=== PATIENT | female | born 1930 | race Hispanic/Latino ===

== ENCOUNTER 2017-10-15 13:52 | Inpatient (IN) | payer MEDICARE ==
--- NOTE | 2017-10-15 14:34 | ED PDOC ---
HPI: SOB/CHF/COPD Time Seen by Provider: 10/15/17 14:14 Chief Complaint (Nursing): Shortness Of Breath Chief Complaint (Provider): SOB History Per: Patient History/Exam Limitations: no limitations Additional Complaint(s): Pt reports SOB X 2 days, constant. Denies fever, CP, cough, palpitations, PND, orthopnea. Denies similar sxs in past. Also reports unintentional weight loss in past few years. PMD: Dr. Christianson Licensing Services Clerk: Dr. Zamora Past Medical History Reviewed: Nursing Documentation, Vital Signs Vital Signs: Last Vital Signs Temp 99.1 F 10/15/17 14:04 Pulse 113 H 10/15/17 14:04 Resp 26 H 10/15/17 14:04 BP 138/66 10/15/17 14:04 Pulse Ox 55 L 10/15/17 16:44 - Medical History PMH: Atrial Fibrillation Other PMH: Cerebral hemorrhage - Family History Family History: States: Unknown Family Hx - Living Arrangements Living Arrangements: Alone - Social History Current smoker - smoking cessation education provided: No Ex-Smoker (has not smoked in the last 12 months): Yes (20 years ago) Alcohol: None - Home Medications Home Medications: Ambulatory Orders Medication Instructions Recorded Amlodipine/Atorvastatin 1 tab PO DAILY 10/15/17 Cholecalciferol (Vitamin D3) 2,000 unit PO DAILY 10/15/17 [Vitamin D3] Digoxin 250 mcg PO DAILY 10/15/17 Furosemide [Lasix] 40 mg PO DAILY 10/15/17 Multivitamin/Iron/Folic Acid 1 tab PO DAILY 10/15/17 [Centrum Complete Multivit Tab] SITagliptin [Januvia] 25 mg PO DAILY 10/15/17 Warfarin [Coumadin] 3 mg PO MOTUTHFRSA 10/15/17 Warfarin [Coumadin] 6 mg PO SUWE 10/15/17 - Allergies Allergies/Adverse Reactions: Allergies Allergy/AdvReac Type Severity Reaction Status Date / Time No Known Allergies Allergy Verified 10/15/17 14:04 Review of Systems Constitutional: Positive for: Weight loss. Negative for: Fever, Chills Cardiovascular: Negative for: Chest Pain, Palpitations Respiratory: Positive for: Shortness of Breath. Negative for: Cough, Hemoptysis , Sputum, Wheezing Gastrointestinal: Negative for: Nausea, Vomiting, Abdominal Pain, Diarrhea Genitourinary Female: Negative for: Dysuria, Hematuria Skin: Negative for: Rash, Lesions Neurological: Negative for: Headache Physical Exam - Reviewed Nursing Documentation Reviewed: Yes Vital Signs Reviewed: Yes - Physical Exam Appears: Positive for: In Acute Distress (Mild respiratory). Negative for: Well (Cachectic) Head Exam: Positive for: ATRAUMATIC, NORMAL INSPECTION Skin: Positive for: Normal Color, Warm, Dry Eye Exam: Positive for: Normal appearance, EOMI, PERRL Cardiovascular/Chest: Positive for: Regular Rate, Rhythm Respiratory: Positive for: Decreased Breath Sounds, Crackles (Bibasilar), Rales , Respiratory Distress (Mild). Negative for: Accessory Muscle Use, Rhonchi, Stridor, Wheezing Gastrointestinal/Abdominal: Positive for: Normal Exam, Bowel Sounds, Soft. Negative for: Tenderness Extremity: Positive for: Normal ROM. Negative for: Tenderness, Deformity, Swelling Neurologic/Psych: Positive for: Alert, Oriented - Laboratory Results Result Diagrams: 10/15/17 14:50 10/15/17 14:50 - ECG O2 Sat by Pulse Oximetry: 55 Pulse Ox Interpretation: Abnormal - Critical Care Total Time (In Min): 60 Medical Decision Making Medical Decision Makin yo female with dyspnea. - labs - EKG - CXR CXR FINDINGS: LUNGS: A [id number] right pleural effusion is identified with a minimal left pleural effusion. Underlying airspace disease not excluded both bases with remaining lung mason clear. Cardiac size stable. Limited pulmonary vascular congestion noted. No pneumothorax bilaterally. PLEURA: As above. CARDIOVASCULAR: As above. OSSEOUS STRUCTURES: No significant abnormalities. VISUALIZED UPPER ABDOMEN: Normal. OTHER FINDINGS: None. IMPRESSION: Bilateral pleural effusions are identified greater the right than left sides with underlying airspace disease not excluded both bases. Stable cardiomegaly. Limited pulmonary vascular congestion noted. 16:[address] Zamora, recommends Lasix 20 mg IV, no anticoagulation ( including ASA) secondary to INR 3.5 and h/o cerebral hemorrhage. 16:30 Dr. Zamora reviewed EKG, SVT with 2:1 heart block, c/w dig toxicity, will order dig level. CT CHEST: Pending 16:42 Patient will be admitted to the service of Dr. Heart. Admitting diagnoses are CHF, bilateral pleural effusions, digoxin toxicity and elevated troponin Disposition - Clinical Impression Clinical Impression: Digoxin toxicity, CHF (congestive heart failure), Pleural effusion, Elevated troponin - Patient ED Disposition Is Patient to be Admitted: Yes - Disposition Disposition Time: 16:42 Condition: GUARDED Forms: [facility] ([place]) - Pt Status Changed To: Hospital Disposition Of: Inpatient - Admit Certification Admit to Inpatient:: After my assessment, the patient will require hospitalization for at least two midnights. This is because of the severity of symptoms shown, intensity of services needed, and/or the medical risk in this patient being treated as an outpatient. - POA Present On Arrival: None
--- NOTE | 2017-10-15 14:36 | RAD ---
Date of service: 10/15/2017 PROCEDURE: CHEST RADIOGRAPH, 1 VIEW HISTORY: SOB COMPARISON: Portable chest 04/05/2008 FINDINGS: LUNGS: A [id number] right pleural effusion is identified with a minimal left pleural effusion. Underlying airspace disease not excluded both bases with remaining lung mason clear. Cardiac size stable. Limited pulmonary vascular congestion noted. No pneumothorax bilaterally. PLEURA: As above. CARDIOVASCULAR: As above. OSSEOUS STRUCTURES: No significant abnormalities. VISUALIZED UPPER ABDOMEN: Normal. OTHER FINDINGS: None. IMPRESSION: Bilateral pleural effusions are identified greater the right than left sides with underlying airspace disease not excluded both bases. Stable cardiomegaly. Limited pulmonary vascular congestion noted
[2017-10-15 14:42] LABS: ABG ALLEN TEST YES; ARTERIAL BLOOD GAS HCO3 34.5 mmol/L (21-28); ARTERIAL BLOOD GAS HEMOGLOBIN 10.3 g/dL (11.7-17.4); ARTERIAL BLOOD GAS O2 CAPACITY 14.7 mL/dL (16-24); ARTERIAL BLOOD GAS O2 CONTENT 14.7 ML/dL (15-23); ARTERIAL BLOOD GAS O2 SAT 100.1 % (95-98); ARTERIAL BLOOD GAS PCO2 67 mm/Hg (35-45); ARTERIAL BLOOD GAS PH 7.38 (7.35-7.45); ARTERIAL BLOOD GAS PO2 301 mm/Hg (80-100); ARTERIAL BLOOD GAS TCO2 41.7 mmol/L (22-28)
[2017-10-15 15:27] LABS: BASO % 0.3 % (0.0-2.0); HEMOGLOBIN 10.1 g/dL (12.0-16.0); LYMPH # 0.5 K/uL (1.0-4.3); LYMPH % 6.3 % (20.0-40.0); MEAN CELL VOLUME 82.6 fl (81.0-99.0); MEAN CORPUSCULAR HGB CONC 31.5 g/dL (33.0-37.0); MEAN PLATELET VOLUME 8.3 fl (7.2-11.7); MONO % 13.8 % (0.0-10.0); NEUT # 5.7 K/uL (1.8-7.0); NEUT % 79.6 % (50.0-75.0); PLATELET COUNT 211 K/uL (130-400); RBC 3.89 Mil/uL (3.80-5.20); RED CELL DISTRIBUTION WIDTH 18.2 % (11.5-14.5); WHITE BLOOD COUNT 7.1 K/uL (4.8-10.8)
[2017-10-15 15:28] LABS: INR 3.5
[2017-10-15 15:30] LABS: ALB/GLOB RATIO 1.2 (1.0-2.1); ALBUMIN 4.1 g/dL (3.5-5.0); ALT/SGPT 27 U/L (9-52); AST/SGOT 30 U/L (14-36); BLOOD UREA NITROGEN 17 mg/dl (7-17); CALCIUM 9.4 mg/dL (8.4-10.2); GFR AFRICAN-AMERICAN > 60; GFR NON-AFRICAN AMERICAN > 60; PARTIAL THROMBOPLASTIN TIME 44.1 Seconds (25.6-37.1)
[2017-10-15 15:58] LABS: B-TYPE NATRIURETIC PEPTIDE 4330 pg/ml (0-900)
[2017-10-15] MEDS ORDERED: Iohexol 300 100 ML IJ ONE (16:12)
[2017-10-15] MEDS ORDERED: Sodium Chloride 0.9% 50 ML IV ONE (16:12)
[2017-10-15 16:44] LABS: BANDS 2 % (0-2); BASOPHIL 1 % (0-2); LYMPHOCYTE 2 % (20-50); MONOCYTE 1 % (0-10); MYELOCYTE 4 % (0-0); NEUTROPHIL 89 % (42-75); REACTIVE LYMPHOCYTES 1 % (0-0); TOTAL CELLS COUNTED 100
[2017-10-15 16:45] LABS: ANISOCYTOSIS SLIGHT; HYPOCHROMIC SLIGHT; PLATELET ESTIMATE NORMAL (NORMAL); POIKILOCYTOSIS SLIGHT
[2017-10-15 16:46] LABS: OVALOCYTES SLIGHT; TARGET CELLS MODERATE
[2017-10-15 16:47] LABS: STOMATOCYTES SLIGHT
--- NOTE | 2017-10-15 17:11 | CT ---
Date of service: 10/15/2017 PROCEDURE: CT Chest with contrast HISTORY: Bilateral pleural effusions, weight loss COMPARISON: None available. TECHNIQUE: Contiguous axial images were obtained through the chest with intravenous contrast enhancement. Sagittal and coronal reconstructions were performed. IV contrast: 85 cc Omnipaque 300 Radiation dose (DLP): 422.32 mGy-cm. This CT exam was performed using one or more of the following dose reduction techniques: Automated exposure control, adjustment of the mA and/or kV according to patient size, and/or use of iterative reconstruction technique. FINDINGS: LUNGS: Compressive atelectasis associate with bilateral pleural effusions. No suspicious pulmonary nodules, masses or infiltrates otherwise identified. MEDIASTINUM: Unremarkable thoracic aorta. No aneurysm or dissection. Cardiomegaly. Main pulmonary artery unremarkable. No vascular congestion. No lymphadenopathy. PLEURA: Bilateral pleural effusions right larger than left. BONES: No fracture. No destructive lesion. UPPER ABDOMEN: Enlarged retroperitoneal paravertebral mass. On the prior study this measured 4 x 4.8 cm. This currently measures 4.6 x 4.8 cm. 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 OTHER FINDINGS: None. IMPRESSION: Bilateral pleural effusions right larger than left with associated compressive atelectasis. No suspicious pulmonary abnormalities. Additional benign and/or incidental findings described above.
--- NOTE | 2017-10-15 17:27 | CP.PCM.HP ---
History of Present Illness - History of Present Illness History of Present Illness: 86 yo female with history of Pulmonary HTN, CHF, Chronic AFib and DM2 came in because of SOB since 2 days ago associated with dizziness and inability to maintain balance when ambulating. Present on Admission - Present on Admission Any Indicators Present on Admission: No History of DVT/PE: No History of Uncontrolled Diabetes: No Urinary Catheter: No Decubitus Ulcer Present: No Review of Systems - Review of Systems All systems: reviewed and no additional remarkable complaints except (aside from those mentioned above, 12 point system review were negative by me) Past Patient History - Tetanus Immunizations Tetanus Immunization: Unknown - Past Medical History & Family History Past Medical History?: Yes - Past Social History Smoking Status: Former Smoker Chewing Tobacco Use: No Cigar Use: No Alcohol: None Drugs: Denies - CARDIAC Hx Atrial Fibrillation: Yes (on Warfarin 3mg PO daily) Hx Congestive Heart Failure: Yes Hx Heart Murmur: Yes Hx Hypertension: Yes - NEUROLOGICAL HX Cerebrovascular Accident: Yes (intracerebral bleed) - HEENT Hx Cataracts: Yes - RENAL Hx Chronic Kidney Disease: No - ENDOCRINE/METABOLIC Hx Diabetes Mellitus Type 2: Yes - HEMATOLOGICAL/ONCOLOGICAL Hx Blood Disorders: No - INTEGUMENTARY Hx Dermatological Problems: No - MUSCULOSKELETAL/RHEUMATOLOGICAL Hx Musculoskeletal Disorders: No - GASTROINTESTINAL Hx Gastrointestinal Disorders: No - GENITOURINARY/GYNECOLOGICAL Hx Genitourinary Disorders: No - PSYCHIATRIC Hx Psychophysiologic Disorder: No Hx Substance Use: No - SURGICAL HISTORY Hx Surgeries: Yes Hx Cataract Extraction: Yes - ANESTHESIA Hx Anesthesia: Yes Hx Anesthesia Reactions: No Meds Allergies/Adverse Reactions: Allergies Allergy/AdvReac Type Severity Reaction Status Date / Time No Known Allergies Allergy Verified 10/15/17 14:04 Physical Exam - Constitutional Appears: No Acute Distress, Cachectic - Head Exam Head Exam: ATRAUMATIC - Eye Exam Eye Exam: absent: Scleral icterus - ENT Exam ENT Exam: Mucous Membranes Moist - Neck Exam Neck exam: Negative for: Meningismus - Respiratory Exam Respiratory Exam: Decreased Breath Sounds. absent: Rales, Rhonchi, Wheezes, Respiratory Distress - Cardiovascular Exam Cardiovascular Exam: Irregular Rhythm, Systolic Murmur - GI/Abdominal Exam GI & Abdominal Exam: Soft. absent: Tenderness - Rectal Exam Rectal Exam: Deferred - Extremities Exam Extremities exam: Negative for: calf tenderness, pedal edema - Back Exam Back exam: absent: tenderness - Neurological Exam Neurological exam: Alert, Oriented x3 - Psychiatric Exam Psychiatric exam: Normal Affect - Skin Skin Exam: Dry, Intact Results - Vital Signs Recent Vital Signs: Last Vital Signs Temp 99.1 F 10/15/17 14:04 Pulse 113 H 10/15/17 14:04 Resp 26 H 10/15/17 14:04 BP 138/66 10/15/17 14:04 Pulse Ox 55 L 10/15/17 16:57 - Labs Result Diagrams: 10/15/17 14:50 10/15/17 14:50 Labs: Laboratory Results - last 24 hr 10/15/17 10/15/17 10/15/17 14:26 14:50 14:50 WBC 7.1 RBC 3.89 Hgb 10.1 L Hct 32.2 L MCV 82.6 MCH 26.0 L MCHC 31.5 L RDW 18.2 H Plt Count 211 MPV 8.3 Neut % (Auto) 79.6 H Lymph % (Auto) 6.3 L Norton % (Auto) 13.8 H Eos % (Auto) 0.0 Baso % (Auto) 0.3 Neut # (Auto) 5.7 Lymph # (Auto) 0.5 L Norton # (Auto) 1.0 H Eos # (Auto) 0.0 Baso # (Auto) 0.0 Neutrophils % (Manual) 89 H Band Neutrophils % 2 Lymphocytes % (Manual) 2 L Reactive Lymphs % 1 H Monocytes % (Manual) 1 Basophils % (Manual) 1 Myelocytes % 4 H Platelet Estimate Normal Hypochromasia (manual) Slight Poikilocytosis (manual Slight Anisocytosis (manual) Slight Target Cells Moderate Ovalocytes Slight Stomatocytes Slight PT INR APTT D-Dimer, Quantitative pCO2 67 H pO2 301 H HCO3 34.5 H ABG pH 7.38 ABG Total CO2 41.7 H ABG O2 Saturation 100.1 H ABG O2 Content 14.7 L ABG Base Excess 12.3 H ABG Hemoglobin 10.3 L ABG Carboxyhemoglobin 1.2 POC ABG HHb (Measured) -0.1 L ABG Methemoglobin 2.7 ABG O2 Capacity 14.7 L Tucker Test Yes A-a O2 Difference 328.0 Hgb O2 Saturation 96.1 FiO2 100.0 Sodium 142 Potassium 4.6 Chloride 95 L Carbon Dioxide 37 H Anion Gap 15 BUN 17 Creatinine 0.7 Est GFR ( Amer) > 60 Est GFR (Non-Af Amer) > 60 Random Glucose 159 H Calcium 9.4 Magnesium 1.8 Total Bilirubin 0.6 AST 30 ALT 27 Alkaline Phosphatase 62 Troponin I 0.1470 H* NT-Pro-B Natriuret Pep 4330 H Total Protein 7.6 Albumin 4.1 Globulin 3.5 Albumin/Globulin Ratio 1.2 10/15/17 14:50 WBC RBC Hgb Hct MCV MCH MCHC RDW Plt Count MPV Neut % (Auto) Lymph % (Auto) Norton % (Auto) Eos % (Auto) Baso % (Auto) Neut # (Auto) Lymph # (Auto) Norton # (Auto) Eos # (Auto) Baso # (Auto) Neutrophils % (Manual) Band Neutrophils % Lymphocytes % (Manual) Reactive Lymphs % Monocytes % (Manual) Basophils % (Manual) Myelocytes % Platelet Estimate Hypochromasia (manual) Poikilocytosis (manual Anisocytosis (manual) Target Cells Ovalocytes Stomatocytes PT 40.0 H INR 3.5 APTT 44.1 H D-Dimer, Quantitative 224 pCO2 pO2 HCO3 ABG pH ABG Total CO2 ABG O2 Saturation ABG O2 Content ABG Base Excess ABG Hemoglobin ABG Carboxyhemoglobin POC ABG HHb (Measured) ABG Methemoglobin ABG O2 Capacity Tucker Test A-a O2 Difference Hgb O2 Saturation FiO2 Sodium Potassium Chloride Carbon Dioxide Anion Gap BUN Creatinine Est GFR ( Amer) Est GFR (Non-Af Amer) Random Glucose Calcium Magnesium Total Bilirubin AST ALT Alkaline Phosphatase Troponin I NT-Pro-B Natriuret Pep Total Protein Albumin Globulin Albumin/Globulin Ratio Assessment & Plan - Assessment and Plan (Free Text) Assessment: 86 yo female with history of Pulmonary HTN, CHF, Chronic AFib and DM2 came in because of SOB since 2 days ago associated with dizziness and inability to maintain balance when ambulating. 1. CHF ECHO both Troponin and ProBNP were elevated serial Troponin; 1st set elevated to 0.1470 Digoxin O.25mg Lasix 40mg IV daily cardiology consult with Dr Bowen 2. AFib in mild rapid AVR on Digoxin and Warfarin Warfarin on hold because of elevated INR (3.5) 3. HTN BP controlled Amlodipine 10mg PO daily 4. DM2 BS controlled on Januvia 50mg PO daily
--- NOTE | 2017-10-15 18:33 | CARD ---
APPROVED REPORT Date of service: 10/15/2017 <Conclusion> Atrial flutter with 2:1 conduction Right bundle branch block Marked ST abnormality, possible inferior subendocardial injury Abnormal ECG
[2017-10-16 05:47] LABS: BASO % 0.5 % (0.0-2.0); EOS % 0.3 % (0.0-4.0); HEMOGLOBIN 10.8 g/dL (12.0-16.0); LYMPH # 1.2 K/uL (1.0-4.3); LYMPH % 13.2 % (20.0-40.0); MEAN CELL VOLUME 83.3 fl (81.0-99.0); MEAN CORPUSCULAR HEMOGLOBIN 26.4 pg (27.0-31.0); MEAN CORPUSCULAR HGB CONC 31.7 g/dL (33.0-37.0); MEAN PLATELET VOLUME 8.1 fl (7.2-11.7); MONO # 1.5 K/uL (0.0-0.8); MONO % 16.8 % (0.0-10.0); NEUT # 6.3 K/uL (1.8-7.0); NEUT % 69.2 % (50.0-75.0); NRBC % 0.1 % (0.0-0.0); RBC 4.07 Mil/uL (3.80-5.20); RED CELL DISTRIBUTION WIDTH 18.1 % (11.5-14.5); WHITE BLOOD COUNT 9.1 K/uL (4.8-10.8)
[2017-10-16] MEDS ORDERED: Albuterol-Ipratrop 3 mg / 0.5 (3 ml) UD INH PRN (06:01)
[2017-10-16] MEDS ORDERED: Nitroglycerin 0.1 mg/hr Top Patch TD PRN (06:03)
[2017-10-16 06:23] LABS: BLOOD UREA NITROGEN 15 mg/dl (7-17); CALCIUM 9.6 mg/dL (8.4-10.2); GFR AFRICAN-AMERICAN > 60; GFR NON-AFRICAN AMERICAN > 60
--- NOTE | 2017-10-16 07:16 | CARD ---
APPROVED REPORT Date of service: 10/16/2017 EKG Measurement Heart [id number] <Conclusion> Atrial fibrillation Right bundle branch block LPFB Abnormal ECG
[2017-10-16] MEDS: Multivitamin With Minerals Tab PO SCH (09:19)
[2017-10-16] MEDS: Pantoprazole 40 mg EC Tab PO SCH (09:21)
[2017-10-16] MEDS: Cholecalciferol 1,000 INTLU TAB PO SCH (09:24)
--- NOTE | 2017-10-16 13:46 | CARD ---
APPROVED REPORT Date of service: 10/16/2017 EXAM: Two-dimensional and M-mode echocardiogram with Doppler and color Doppler. Other Information Quality : ExcellentRhythm : NSR INDICATION Congestive Heart Failure 2D DIMENSIONS IVSd1.70 (0.7-1.1cm)LVDd2.53 (3.9-5.9cm) LVOT Diameter1.88 (1.8-2.4cm)PWd1.64 (0.7-1.1cm) IVSs1.23 (0.8-1.2cm)LVDs3.47 (2.5-4.0cm) FS (%) 37.0 %PWs1.19 (0.8-1.2cm) M-Mode DIMENSIONS Left Atrium (MM)6.53 (2.5-4.0cm)IVSd1.25 (0.7-1.1cm) Aortic Root2.88 (2.2-3.7cm)LVDd3.84 (4.0-5.6cm) Aortic Cusp Exc.1.22 (1.5-2.0cm)PWd1.41 (0.7-1.1cm) IVSs1.50 cmFS (%) 34 % LVDs2.53 (2.0-3.8cm)PWs2.00 cm Aortic Valve AoV Peak Dpeiqxgf090.4cm/sAoV VTI51.4cmAO Peak GR.28mmHg LVOT Peak Znugtvky966.5cm/sLVOT VTI21.48cmAO Mean GR.16mmHg LAW (VMAX)0.19no4ZVE (VTI)0.22nv2SB P 1/2 [id number] Mitral Valve MV DECEL [id number] ratio0.0 MVA (PHT)1.22cm2 TDI E/Lateral E'0.0E/Medial E'0.0 Pulmonary Valve PV Peak Hmbphxec668.4cm/s Tricuspid Valve TR Peak [id number]/sRAP [id number] Peak Gr.37mmHg [id number] LEFT VENTRICLE The left ventricle is normal size. There is mild to moderate concentric left ventricular hypertrophy. Left ventricle systolic function is normal. The Ejection Fraction is 55-60%. There is normal LV segmental wall motion. Could not be assesed due to A Fib. RIGHT VENTRICLE The right ventricle is mildly dilated. Systolic function is borderline reduced. ATRIA The left atrium is severely dilated. RA is severely dilated. AORTIC VALVE Aortic leaflets were severely sclerotic with severely reduced excursion. There is mild to moderate aortic regurgitation. There is moderate to severe valvular aortic stenosis. Calculated aortic valve area is 1.1 cm2 with maximum pressure gradient of 28 mmHg and mean pressure gradient of 16 mmHg. MITRAL VALVE The mitral valve leaflets are thickened. There is no evidence of mitral valve prolapse. Severe mitral stenosis Calculated MV orefice was 1.2 CM2 Mitral regurgitation is moderate. TRICUSPID VALVE The tricuspid valve is normal in structure. There is moderate tricuspid regurgitation. Right ventricular systolic pressure is estimated at 48 mmHg. There is moderate-severe pulmonary hypertension. PULMONIC VALVE The pulmonary valve is normal in structure. There is no pulmonic valvular regurgitation. GREAT VESSELS The aortic root is normal in size. The IVC is dilated. The IVC collapses <50% with inspiration. PERICARDIAL EFFUSION Small amount of pericardial fluid seen. There is large left pleural effusion. <Conclusion> The left ventricle is normal size. There is mild to moderate concentric left ventricular hypertrophy. There is normal LV segmental wall motion. Left ventricle systolic function is normal. The Ejection Fraction is 55-60%. The right ventricle is mildly dilated. Systolic function is borderline reduced. The left atrium is severely dilated. RA is severely dilated. There is mild to moderate aortic regurgitation. There is moderate to severe valvular aortic stenosis. Severe mitral stenosis Mitral regurgitation is moderate. There is moderate-severe pulmonary hypertension. The IVC is dilated. The IVC collapses <50% with inspiration. There is large left pleural effusion.
--- NOTE | 2017-10-16 14:58 | CP.PCM.CON ---
History of Present Illness - History of Present Illness History of Present Illness: this 86- year-old female is known to me since 1998 when I saw her for acute congestive cardiac failure precipitated by onset of atrial fibrillation in a patient with rheumatic heart disease who had significant mitral stenosis and regurgitation. The patient used to be a smoker and had quit smoking in mid . She developed diabetes mellitus approximately 10-15 years back and has is being treated with oral anti-diabetics. The patient has steadily lost weight. She reports developing gradually worsening dyspnea on exertion and finally came to the emergency room where she was found to have severe bilateral pleural effusions. She has a history of having had an intracerebral bleed and briefly required antiseizure medications. She is again anticoagulated because of chronic atrial fibrillation using warfarin. Physical examination shows an elderly thin built female who is alert awake and coherent dyspneic at rest with a respiratory rate off 20 breaths per minute. Her heart rate was 80 bpm irregularly irregular with a blood pressure of 122/70 mmHg. Her jugular venous pressure was mildly elevated and there was no edema over lower extremities. Her activities were warm and nailbeds were pink. There was no central or peripheral cyanosis. There was no clubbing. The apex was in the sixth space slightly heaving in character with a long apical systolic murmur of mitral regurgitation and an aortic ejection systolic murmur of aortic stenosis. There atrial reduced at both bases and the percussion note was quite dull. Abdomen was soft and liver and spleen are not palpable. Her electro- cardiogram at admission showed supraventricular tachycardia with 2 to one conduction this morning it shows atrial fibrillation with right bundle branch block. There was extreme right axis deviation. Chest x-ray and CT scan of the abdomen were noted. Her INR was 3.5. Rest of her labs were noted. Her echocardiogram showed severe mitral stenosis with regurgitation as well as aortic stenosis. Her right ventricular systolic pressure was elevated. Impression: severe mitral stenosis with regurgitation moderate to severe aortic stenosis with chronic atrial fibrillation and congestive cardiac failure. Bilateral pleural effusions. Diabetes mellitus. Patient's warfarin has been held and if her INR drops below 2.5 tomorrow pleural tap would be recommended. At this point she is hemodynamically stable. Past Patient History - Tetanus Immunizations Tetanus Immunization: Unknown - Past Medical History & Family History Past Medical History?: Yes - Past Social History Smoking Status: Never Smoked - CARDIAC Hx Cardiac Disorders: Yes Hx Atrial Fibrillation: Yes (on Warfarin 3mg PO daily) Hx Congestive Heart Failure: Yes Hx Heart Murmur: Yes Hx Hypertension: Yes - PULMONARY Hx Respiratory Disorders: No - NEUROLOGICAL Hx Neurological Disorder: Yes HX Cerebrovascular Accident: Yes (intracerebral bleed) - HEENT Hx HEENT Problems: Yes Hx Cataracts: Yes - RENAL Hx Chronic Kidney Disease: No - ENDOCRINE/METABOLIC Hx Endocrine Disorders: Yes Hx Diabetes Mellitus Type 2: Yes - HEMATOLOGICAL/ONCOLOGICAL Hx Blood Disorders: No Hx AIDS: No Hx Human Immunodeficiency Virus (HIV): No - INTEGUMENTARY Hx Dermatological Problems: No - MUSCULOSKELETAL/RHEUMATOLOGICAL Hx Musculoskeletal Disorders: No Hx Falls: No - GASTROINTESTINAL Hx Gastrointestinal Disorders: No - GENITOURINARY/GYNECOLOGICAL Hx Genitourinary Disorders: No - PSYCHIATRIC Hx Psychophysiologic Disorder: No Hx Substance Use: No - SURGICAL HISTORY Hx Surgeries: Yes Hx Cataract Extraction: Yes - ANESTHESIA Hx Anesthesia: Yes Hx Anesthesia Reactions: No Meds Allergies/Adverse Reactions: Allergies Allergy/AdvReac Type Severity Reaction Status Date / Time No Known Allergies Allergy Verified 10/15/17 14:04 - Medications Medications: Current Medications Aspirin (Aspirin Chewable) 81 mg PO DAILY [facility] Atorvastatin Calcium (Lipitor) 20 mg PO HS [facility] Last Admin: 10/15/17 21:48 Dose: 20 mg Cholecalciferol (Vitamin D) 2,000 intlu PO DAILY [facility] Last Admin: 10/16/17 09:24 Dose: 2,000 intlu Digoxin (Lanoxin) 0.25 mg PO DAILY [facility] Docusate Sodium (Colace) 100 mg PO BID PRN PRN Reason: Constipation Furosemide (Lasix) 40 mg IVP DAILY [facility] Multivitamins/Minerals (Therapeutic-M Tab) 1 tab PO DAILY [facility] Last Admin: 10/16/17 09:19 Dose: 1 tab Nitroglycerin (Nitro-Bid 2% Oint) 1 ea TOP Q6 [facility] Pantoprazole Sodium (Protonix Ec Tab) 40 mg PO DAILY [facility] Last Admin: 10/16/17 09:21 Dose: 40 mg Sitagliptin Phosphate (Januvia) 25 mg PO DAILY [facility] Last Admin: 10/16/17 09:19 Dose: 25 mg Results - Vital Signs Recent Vital Signs: Last Vital Signs Temp 97.9 F 10/16/17 12:54 Pulse 84 10/16/17 12:54 Resp 18 10/16/17 12:54 BP 127/69 10/16/17 12:54 Pulse Ox 96 10/16/17 12:54 - Labs Result Diagrams: 10/16/17 05:05 10/16/17 05:05 Labs: Laboratory Results - last 24 hr 10/15/17 10/15/17 10/15/17 14:50 14:50 14:50 WBC 7.1 RBC 3.89 Hgb 10.1 L Hct 32.2 L MCV 82.6 MCH 26.0 L MCHC 31.5 L RDW 18.2 H Plt Count 211 MPV 8.3 Neut % (Auto) 79.6 H Lymph % (Auto) 6.3 L [place] % (Auto) 13.8 H Eos % (Auto) 0.0 Baso % (Auto) 0.3 Neut # (Auto) 5.7 Lymph # (Auto) 0.5 L [place] # (Auto) 1.0 H Eos # (Auto) 0.0 Baso # (Auto) 0.0 Neutrophils % (Manual) 89 H Band Neutrophils % 2 Lymphocytes % (Manual) 2 L Reactive Lymphs % 1 H Monocytes % (Manual) 1 Basophils % (Manual) 1 Myelocytes % 4 H Platelet Estimate Normal Hypochromasia (manual) Slight Poikilocytosis (manual Slight Anisocytosis (manual) Slight Target Cells Moderate Ovalocytes Slight Stomatocytes Slight PT 40.0 H INR 3.5 APTT 44.1 H D-Dimer, Quantitative 224 Sodium 142 Potassium 4.6 Chloride 95 L Carbon Dioxide 37 H Anion Gap 15 BUN 17 Creatinine 0.7 Est GFR ( Amer) > 60 Est GFR (Non-Af Amer) > 60 POC Glucose (mg/dL) Random Glucose 159 H Hemoglobin A1c Calcium 9.4 Magnesium 1.8 Total Bilirubin 0.6 AST 30 ALT 27 Alkaline Phosphatase 62 Troponin I 0.1470 H* NT-Pro-B Natriuret Pep 4330 H Total Protein 7.6 Albumin 4.1 Globulin 3.5 Albumin/Globulin Ratio 1.2 TSH 3rd Generation Digoxin 10/15/17 10/15/17 10/15/17 17:57 18:10 21:27 WBC RBC Hgb Hct MCV MCH MCHC RDW Plt Count MPV Neut % (Auto) Lymph % (Auto) [place] % (Auto) Eos % (Auto) Baso % (Auto) Neut # (Auto) Lymph # (Auto) [place] # (Auto) Eos # (Auto) Baso # (Auto) Neutrophils % (Manual) Band Neutrophils % Lymphocytes % (Manual) Reactive Lymphs % Monocytes % (Manual) Basophils % (Manual) Myelocytes % Platelet Estimate Hypochromasia (manual) Poikilocytosis (manual Anisocytosis (manual) Target Cells Ovalocytes Stomatocytes PT INR APTT D-Dimer, Quantitative Sodium Potassium Chloride Carbon Dioxide Anion Gap BUN Creatinine Est GFR ( Amer) Est GFR (Non-Af Amer) POC Glucose (mg/dL) 100 141 H Random Glucose Hemoglobin A1c Calcium Magnesium Total Bilirubin AST ALT Alkaline Phosphatase Troponin I NT-Pro-B Natriuret Pep Total Protein Albumin Globulin Albumin/Globulin Ratio TSH 3rd Generation Digoxin 1.6 10/15/17 10/16/17 10/16/17 23:33 05:05 05:05 WBC 9.1 RBC 4.07 Hgb 10.8 L Hct 33.9 L MCV 83.3 MCH 26.4 L MCHC 31.7 L RDW 18.1 H Plt Count 219 MPV 8.1 Neut % (Auto) 69.2 Lymph % (Auto) 13.2 L [place] % (Auto) 16.8 H Eos % (Auto) 0.3 Baso % (Auto) 0.5 Neut # (Auto) 6.3 Lymph # (Auto) 1.2 [place] # (Auto) 1.5 H Eos # (Auto) 0.0 Baso # (Auto) 0.0 Neutrophils % (Manual) Band Neutrophils % Lymphocytes % (Manual) Reactive Lymphs % Monocytes % (Manual) Basophils % (Manual) Myelocytes % Platelet Estimate Hypochromasia (manual) Poikilocytosis (manual Anisocytosis (manual) Target Cells Ovalocytes Stomatocytes PT INR APTT D-Dimer, Quantitative Sodium 143 Potassium 4.6 Chloride 96 L Carbon Dioxide 36 H Anion Gap 16 BUN 15 Creatinine 0.6 L Est GFR ( Amer) > 60 Est GFR (Non-Af Amer) > 60 POC Glucose (mg/dL) Random Glucose 120 H Hemoglobin A1c Calcium 9.6 Magnesium Total Bilirubin AST ALT Alkaline Phosphatase Troponin I 0.3140 H* NT-Pro-B Natriuret Pep Total Protein Albumin Globulin Albumin/Globulin Ratio TSH 3rd Generation 1.12 Digoxin 10/16/17 10/16/17 10/16/17 05:05 05:48 06:00 WBC RBC Hgb Hct MCV MCH MCHC RDW Plt Count MPV Neut % (Auto) Lymph % (Auto) [place] % (Auto) Eos % (Auto) Baso % (Auto) Neut # (Auto) Lymph # (Auto) [place] # (Auto) Eos # (Auto) Baso # (Auto) Neutrophils % (Manual) Band Neutrophils % Lymphocytes % (Manual) Reactive Lymphs % Monocytes % (Manual) Basophils % (Manual) Myelocytes % Platelet Estimate Hypochromasia (manual) Poikilocytosis (manual Anisocytosis (manual) Target Cells Ovalocytes Stomatocytes PT INR APTT D-Dimer, Quantitative Sodium Potassium Chloride Carbon Dioxide Anion Gap BUN Creatinine Est GFR ( Amer) Est GFR (Non-Af Amer) POC Glucose (mg/dL) 139 H Random Glucose Hemoglobin A1c 6.0 Calcium Magnesium Total Bilirubin AST ALT Alkaline Phosphatase Troponin I 0.2620 H* NT-Pro-B Natriuret Pep Total Protein Albumin Globulin Albumin/Globulin Ratio TSH 3rd Generation Digoxin 10/16/17 11:29 WBC RBC Hgb Hct MCV MCH MCHC RDW Plt Count MPV Neut % (Auto) Lymph % (Auto) [place] % (Auto) Eos % (Auto) Baso % (Auto) Neut # (Auto) Lymph # (Auto) [place] # (Auto) Eos # (Auto) Baso # (Auto) Neutrophils % (Manual) Band Neutrophils % Lymphocytes % (Manual) Reactive Lymphs % Monocytes % (Manual) Basophils % (Manual) Myelocytes % Platelet Estimate Hypochromasia (manual) Poikilocytosis (manual Anisocytosis (manual) Target Cells Ovalocytes Stomatocytes PT INR APTT D-Dimer, Quantitative Sodium Potassium Chloride Carbon Dioxide Anion Gap BUN Creatinine Est GFR ( Amer) Est GFR (Non-Af Amer) POC Glucose (mg/dL) 137 H Random Glucose Hemoglobin A1c Calcium Magnesium Total Bilirubin AST ALT Alkaline Phosphatase Troponin I NT-Pro-B Natriuret Pep Total Protein Albumin Globulin Albumin/Globulin Ratio TSH 3rd Generation Digoxin
[2017-10-16] MEDS ORDERED: Nitroglycerin 2% Ointment Foilpak UD TOP SCH (16:00)
--- NOTE | 2017-10-16 16:14 | CP.PCM.PN ---
Subjective - Date & Time of Evaluation Date of Evaluation: 10/16/17 Time of Evaluation: 15:30 - Subjective Subjective: Patient seen and examined. Feeling okay without complaint Objective - Vital Signs/Intake and Output Vital Signs (last 24 hours): Temp Pulse Resp BP Pulse Ox 98.5 F 69 17 107/38 L 93 L 10/16/17 16:05 10/16/17 16:05 10/16/17 16:05 10/16/17 16:05 10/16/17 16:05 - Medications Medications: Current Medications Aspirin (Aspirin Chewable) 81 mg PO DAILY [facility] Atorvastatin Calcium (Lipitor) 20 mg PO HS [facility] Last Admin: 10/15/17 21:48 Dose: 20 mg Cholecalciferol (Vitamin D) 2,000 intlu PO DAILY [facility] Last Admin: 10/16/17 09:24 Dose: 2,000 intlu Digoxin (Lanoxin) 0.25 mg PO DAILY [facility] Docusate Sodium (Colace) 100 mg PO BID PRN PRN Reason: Constipation Furosemide (Lasix) 40 mg IVP DAILY [facility] Multivitamins/Minerals (Therapeutic-M Tab) 1 tab PO DAILY [facility] Last Admin: 10/16/17 09:19 Dose: 1 tab Nitroglycerin (Nitro-Bid 2% Oint) 1 ea TOP Q6 [facility] Pantoprazole Sodium (Protonix Ec Tab) 40 mg PO DAILY [facility] Last Admin: 10/16/17 09:21 Dose: 40 mg Sitagliptin Phosphate (Januvia) 25 mg PO DAILY [facility] Last Admin: 10/16/17 09:19 Dose: 25 mg - Labs Labs: 10/16/17 05:05 10/16/17 05:05 PT 40.0 Seconds (9.8-13.1) H 10/15/17 14:50 INR 3.5 10/15/17 14:50 APTT 44.1 Seconds (25.6-37.1) H 10/15/17 14:50 - Constitutional Appears: No Acute Distress, Cachectic - Head Exam Head Exam: ATRAUMATIC - Eye Exam Eye Exam: absent: Scleral icterus - ENT Exam ENT Exam: Mucous Membranes Moist - Neck Exam Neck Exam: absent: Meningismus - Respiratory Exam Respiratory Exam: Decreased Breath Sounds. absent: Respiratory Distress - Cardiovascular Exam Cardiovascular Exam: Irregular Rhythm - GI/Abdominal Exam GI & Abdominal Exam: Soft. absent: Tenderness - Rectal Exam Rectal Exam: Deferred - Extremities Exam Extremities Exam: absent: Calf Tenderness, Pedal Edema - Back Exam Back Exam: NORMAL INSPECTION - Neurological Exam Neurological Exam: Alert, Oriented x3 - Psychiatric Exam Psychiatric exam: Normal Affect - Skin Skin Exam: Dry, Intact Assessment and Plan - Assessment and Plan (Free Text) Assessment: 86 yo female with history of Pulmonary HTN, CHF, Chronic AFib and DM2 came in because of SOB since 2 days ago associated with dizziness and inability to maintain balance when ambulating. 1. CHF with bilateral pleural effusion for IR pleural tap tomorrow if INR gets down below 2.5, presently still 3.5 ECHO: normal LV function, EF 55-60%, left atrium severely dilated, severe aortic stenosis Troponin and ProBNP were elevated Digoxin O.25mg Lasix 40mg IV daily cardiology consult with Dr Bowen 2. AFib rate controlled continue hold on Warfarin 3. HTN BP controlled Amlodipine 10mg PO daily 4. DM2 BS controlled on Januvia 50mg PO daily
[2017-10-16 16:22] LABS: INR 3.5
[2017-10-16 16:23] LABS: PROTHROMBIN TIME 40.1 Seconds (9.8-13.1)
[2017-10-16] MEDS: Nitroglycerin 2% Ointment Foilpak UD TOP SCH (22:30)
[2017-10-17] MEDS ORDERED: Albuterol-Ipratrop 3 mg / 0.5 (3 ml) UD INH STA (00:18)
[2017-10-17] MEDS ORDERED: Albuterol-Ipratrop 3 mg / 0.5 (3 ml) UD ONE (00:29)
[2017-10-17 05:47] LABS: INR 2.3; PROTHROMBIN TIME 26.3 Seconds (9.8-13.1)
[2017-10-17] MEDS: Nitroglycerin 2% Ointment Foilpak UD TOP SCH ×4 (06:12→22:21)
[2017-10-17 06:35] LABS: ABG ALLEN TEST YES; ARTERIAL BLOOD GAS HCO3 33.6 mmol/L (21-28); ARTERIAL BLOOD GAS HEMOGLOBIN 10.7 g/dL (11.7-17.4); ARTERIAL BLOOD GAS O2 CAPACITY 14.6 mL/dL (16-24); ARTERIAL BLOOD GAS O2 CONTENT 14.2 ML/dL (15-23); ARTERIAL BLOOD GAS PCO2 129 mm/Hg (35-45); ARTERIAL BLOOD GAS PH 7.14 (7.35-7.45); ARTERIAL BLOOD GAS PO2 86 mm/Hg (80-100); ARTERIAL BLOOD GAS TCO2 47.9 mmol/L (22-28)
[2017-10-17 06:38] LABS: ALB/GLOB RATIO 1.2 (1.0-2.1); ALBUMIN 4.2 g/dL (3.5-5.0); ALT/SGPT 31 U/L (9-52); AST/SGOT 29 U/L (14-36); BLOOD UREA NITROGEN 17 mg/dl (7-17); CALCIUM 9.3 mg/dL (8.4-10.2); GFR AFRICAN-AMERICAN > 60; GFR NON-AFRICAN AMERICAN > 60
--- NOTE | 2017-10-17 08:12 | RAD ---
Date of service: 10/17/2017 HISTORY: pleural effusion COMPARISON: 10/15/2017 FINDINGS: LUNGS: The right basal opacity S similar. PLEURA: The moderate right pleural effusion and minimal left pleural effusion are similar. CARDIOVASCULAR: Minimal cardiomegaly -similar. Minimal pulmonary vascular congestion-similar OSSEOUS STRUCTURES: No significant abnormalities. VISUALIZED UPPER ABDOMEN: Normal. OTHER FINDINGS: None. IMPRESSION: No change - moderate right pleural effusion with inferred compressive atelectasis. Concomitant underlying infiltrates not excluded. Minimal left pleural effusion -similar. Minimal cardiomegaly -similar. Minimal pulmonary vascular congestion-similar
[2017-10-17] MEDS ORDERED: Flumazenil 0.1 mg/ml Inj (5ml) IVP ONE (08:13)
[2017-10-17 08:27] LABS: ABG ALLEN TEST YES
[2017-10-17] MEDS ORDERED: Flumazenil 0.1 mg/ml Inj (5ml) IVP STA (08:35)
[2017-10-17] MEDS ORDERED: Metoprolol 1 mg/ml Inj IVP STA (08:35)
[2017-10-17 08:43] LABS: ARTERIAL BLOOD GAS PH 7.11 (7.35-7.45)
[2017-10-17 08:44] LABS: ARTERIAL BLOOD GAS HCO3 32.1 mmol/L (21-28); ARTERIAL BLOOD GAS O2 SAT 97.2 % (95-98); ARTERIAL BLOOD GAS PCO2 134 mm/Hg (35-45); ARTERIAL BLOOD GAS PO2 90 mm/Hg (80-100); ARTERIAL BLOOD GAS TCO2 46.7 mmol/L (22-28)
--- NOTE | 2017-10-17 08:57 | CP.PCM.PN ---
Subjective - Date & Time of Evaluation Date of Evaluation: 10/17/17 Time of Evaluation: 08:00 - Subjective Subjective: Pt became somnolent, unresponsive and was transferred to ICU this morning Her Blood gas showed markedly elevated pCO2 129, pH 7.14 Bipap was started She had received Xanax at 12 MN - Romazicon given with some response - occ opening of eyes but she would drift back She is afebrile Pt has Advance Directives on the chart : DNR/DNI Gisselle Merino are her Surrogate decision makers Objective - Vital Signs/Intake and Output Vital Signs (last 24 hours): Temp Pulse Resp BP Pulse Ox 98.0 F 116 H 18 158/60 H 88 L 10/17/17 04:45 10/17/17 06:12 10/17/17 04:45 10/17/17 04:45 10/17/17 04:45 - Medications Medications: Current Medications Aspirin (Aspirin Chewable) 81 mg PO DAILY [facility] Atorvastatin Calcium (Lipitor) 20 mg PO HS [facility] Last Admin: 10/16/17 22:19 Dose: 20 mg Cholecalciferol (Vitamin D) 2,000 intlu PO DAILY [facility] Last Admin: 10/16/17 09:24 Dose: 2,000 intlu Digoxin (Lanoxin) 0.25 mg PO DAILY [facility] Docusate Sodium (Colace) 100 mg PO BID PRN PRN Reason: Constipation Furosemide (Lasix) 40 mg IVP DAILY [facility] Vancomycin HCl 1 gm/ Sodium (Chloride) 250 mls @ 166.667 mls/hr IVPB Q12 [facility] PRN Reason: Protocol Piperacillin Sod/Tazobactam (Sod 3.375 gm/ Sodium Chloride) 100 mls @ 100 mls/ hr IVPB Q6 [facility] PRN Reason: Protocol Metoprolol Tartrate (Lopressor) 5 mg IVP Q6 [facility] Multivitamins/Minerals (Therapeutic-M Tab) 1 tab PO DAILY [facility] Last Admin: 10/16/17 09:19 Dose: 1 tab Nitroglycerin (Nitro-Bid 2% Oint) 1 ea TOP Q6 [facility] Last Admin: 10/17/17 06:12 Dose: 1 ea Pantoprazole Sodium (Protonix Ec Tab) 40 mg PO DAILY [facility] Last Admin: 10/16/17 09:21 Dose: 40 mg Sitagliptin Phosphate (Januvia) 25 mg PO DAILY [facility] Last Admin: 10/16/17 09:19 Dose: 25 mg - Labs Labs: 10/16/17 05:05 10/17/17 05:00 PT 26.3 Seconds (9.8-13.1) H D 10/17/17 05:00 INR 2.3 10/17/17 05:00 APTT 44.1 Seconds (25.6-37.1) H 10/15/17 14:50 - Constitutional Appears: Chronically Ill, Other (Unresponsive even to painful stimuli) - Head Exam Head Exam: ATRAUMATIC, NORMAL INSPECTION, NORMOCEPHALIC - Eye Exam Eye Exam: PERRL - ENT Exam ENT Exam: Mucous Membranes Dry, Normal External Ear Exam - Neck Exam Neck Exam: absent: Meningismus - Respiratory Exam Respiratory Exam: Decreased Breath Sounds, Rales, Rhonchi Additional comments: Pt is on Bipap - Cardiovascular Exam Cardiovascular Exam: Irregular Rhythm, +S1, +S2 - GI/Abdominal Exam GI & Abdominal Exam: Soft, Normal Bowel Sounds - Extremities Exam Extremities Exam: absent: Pedal Edema - Neurological Exam Additional comments: Pt is obtunded - Psychiatric Exam Additional comments: unresponsive - Skin Skin Exam: Dry, Normal Color, Warm Assessment and Plan (1) Acute respiratory failure with hypercapnia Status: Acute (2) CO2 narcosis Status: Acute (3) Compressive atelectasis Status: Acute (4) Elevated troponin Status: Acute (5) Prothrombin time increased due to coumadin Status: Acute (6) Pleural effusion Status: Acute (7) CHF (congestive heart failure) Status: Acute (8) Paroxysmal atrial fibrillation Status: Chronic (9) HTN (hypertension) Status: Acute - Assessment and Plan (Free Text) Plan: 86 yo female with history of Pulmonary HTN, CHF, Chronic AFib and DM2 came in because of SOB and dizziness Pt was found to be in CHF exacerb, had Pleural effusion on CXR and slight TRoponin elevation. She was admitted to Telemetry. Cardio consulted. 10/17 :became somnolent - transferred to ICU . ABG showed markedly elevated CO2. She was placed on Bipap (1) Acute respiratory failure with hypercapnia ( nultifactorial -Pleural effusion, PNA, CO2 retention, sedative med ) Status: Acute Pt placed on Bipap Had discussed with sons that pt may need to be intubated Plan for Thoracentesis by IR (2) CO2 narcosis Status: Acute Pt placed on Bipap - may need to be intubated (3) Compressive atelectasis vs Infiltrates ( POA) Status: Acute Pt started on IV Zosyn and Vanco (4) Elevated troponin Status: Acute prob sec to CHF trending down Pt onnASA, Statin (5) Prothrombin time increased due to coumadin Status: Acute Pt on Coumadin for A fib INR 3.5 on admission Hold Coumadin (6) Pleural effusion ? sec to CHF Status: Acute Plan for Thoracenetesis with Pleural fluid analysis (7) CHF (congestive heart failure) , exacerbation, combined Systolic and Diastolic dysfxn Status: Acute ECHO : Mitral stenosis and regurgitation, Aortic stenosis, Pulm HTN, EF=55% cont Digoxin Lasix prn (8) Paroxysmal atrial fibrillation Status: Chronic Pt was on Warfarin at home - on hold as pt is going fo Thoracentesis (9) HTN (hypertension) Status: Acute Metoprolol IV prn for now 10. DM Type ii accucheck with coverage
[2017-10-17] MEDS: Digoxin 250 mcg (0.25 mg) Tab PO SCH (09:00)
--- NOTE | 2017-10-17 09:46 | CP.PCM.PN ---
Subjective - Date & Time of Evaluation Date of Evaluation: 10/17/17 Time of Evaluation: 09:20 - Subjective Subjective: Has developed severe CO2 retention following sedation for restlessness Extremely drowsy A Fib at 90 BPM, BP 136/70 mm Hg INR 2.3 Large bilat pleural effusions Rt>Lt Will benefit by pleural tap (spoke with IR, will do it this afternoon) Pt will need vent support Spoke with son who understands the temporary need for it Discussed at length with intesivist Dr. Chahal Objective - Vital Signs/Intake and Output Vital Signs (last 24 hours): Temp Pulse Resp BP Pulse Ox 98.0 F 99 H 18 176/73 H 88 L 10/17/17 04:45 10/17/17 09:00 10/17/17 04:45 10/17/17 08:58 10/17/17 04:45 - Medications Medications: Current Medications Aspirin (Aspirin Chewable) 81 mg PO DAILY [facility] Atorvastatin Calcium (Lipitor) 20 mg PO HS [facility] Last Admin: 10/16/17 22:19 Dose: 20 mg Cholecalciferol (Vitamin D) 2,000 intlu PO DAILY [facility] Last Admin: 10/16/17 09:24 Dose: 2,000 intlu Digoxin (Lanoxin) 0.25 mg PO DAILY [facility] Docusate Sodium (Colace) 100 mg PO BID PRN PRN Reason: Constipation Furosemide (Lasix) 40 mg IVP DAILY [facility] Vancomycin HCl 1 gm/ Sodium (Chloride) 250 mls @ 166.667 mls/hr IVPB Q12 [facility] PRN Reason: Protocol Piperacillin Sod/Tazobactam (Sod 3.375 gm/ Sodium Chloride) 100 mls @ 100 mls/ hr IVPB Q6 [facility] PRN Reason: Protocol Metoprolol Tartrate (Lopressor) 5 mg IVP Q6 [facility] Multivitamins/Minerals (Therapeutic-M Tab) 1 tab PO DAILY [facility] Last Admin: 10/16/17 09:19 Dose: 1 tab Nitroglycerin (Nitro-Bid 2% Oint) 1 ea TOP Q6 [facility] Last Admin: 10/17/17 06:12 Dose: 1 ea Pantoprazole Sodium (Protonix Ec Tab) 40 mg PO DAILY [facility] Last Admin: 10/16/17 09:21 Dose: 40 mg Sitagliptin Phosphate (Januvia) 25 mg PO DAILY [facility] Last Admin: 08/07/18 09:19 Dose: 25 mg - Labs Labs: 10/16/17 05:05 10/17/17 05:00 PT 26.3 Seconds (9.8-13.1) H D 10/17/17 05:00 INR 2.3 10/17/17 05:00 APTT 44.1 Seconds (25.6-37.1) H 10/15/17 14:50
[2017-10-17] MEDS ORDERED: Metoprolol 1 mg/ml Inj IVP SCH (10:00)
[2017-10-17] MEDS ORDERED: Propofol 10 mg/ml 1,000 MG/100 ML VIAL ONE (10:19)
[2017-10-17] MEDS ORDERED: Propofol 10 mg/ml Inj (20 ML) IV ONE (10:21)
--- NOTE | 2017-10-17 10:52 | PCM.PROC ---
Procedures Attestation:: I certify that I have explained the specified Operation(s) or Procedure(s), risks, benefits and reasonable alternatives to the Patient and/or other person responsible. The opportunity was given to ask questions and all questions answered - Intubation Time Out Performed: Yes Sedative: None Laryngoscope: Naz (#3) ET Tube Size: 7.5 ET Tube Uncuffed: No ET Tube Secured at Depth: 23 at the gums ET Tube Secured Locarion: Other ET Tube Placement Confirmation: Visualized Passing Through Cords, Breath Sounds Equal Bilaterally, No Breath Sounds Over Epigastrum, Confirmation w/Capnometry Patient Tolerated Procedure: Well Procedure Immediate Complications: None Additional comments: Oral intubation and MV support for severe hypercarbic Resp failure unresponsive and not improved on BiPAP support. Living Will directives noted, and as per Dr. Paulina Zamora's discussion with patient's son Randolph, intubation and MV support would be a "short term and reversible event." Re-discussed this with both sons present, Randolph and Luca and as they are the assigned health care proxies as designated in the Living Will, they agree with this management modality. I expressed and discussed the possible scenario that as days pass and she does not improve from mechanical ventilatory support, then they will follow patient's Living Will directives to terminate any life-sustaining measures and be extubated from MV support without any further weaning trials.
[2017-10-17] MEDS: Pantoprazole 40 mg EC Tab PO SCH (10:55)
[2017-10-17] MEDS: Multivitamin With Minerals Tab PO SCH (10:56)
[2017-10-17] MEDS: Cholecalciferol 1,000 INTLU TAB PO SCH (10:59)
[2017-10-17] MEDS: Piperacillin/Tazobact 3.375 GM in Sodium Chloride 0.9% 100 ML IVPB SCH ×4 (10:59→22:23)
[2017-10-17] MEDS ORDERED: Lidocaine Hydrochloride 1% 10 ML ONE (12:19)
[2017-10-17] MEDS ORDERED: Sodium Chloride 0.9% 1,000 ML IV SCH (13:00)
--- NOTE | 2017-10-17 13:19 | PCM.SURG1 ---
Surgeon's Initial Post Op Note - Surgeon's Notes Surgeon: Gilbert Benítez MD Counter Pocket Sewer: NONE Type of Anesthesia: Local Pre-Operative Diagnosis: Right pleural effusion Operative Findings: US showed large right effusion Post-Operative Diagnosis: Right pleural effusion Operation Performed: US guided thoracentesis Specimen/Specimens Removed: 1400 cc of slight serosanguinous fluid Estimated Blood Loss: EBL {In ML}: 0 Blood Products Given: N/A Drains Used: No Drains Post-Op Condition: Fair Date of Surgery/Procedure: 10/17/17 Time of Surgery/Procedure: 13:15
--- NOTE | 2017-10-17 13:21 | CP.CCUPN ---
CCU Subjective - Physician Review Subjective (Free Text): 86F admitted 2 days ago to Telemetry for resp insufficiency due to CHF, and bilat effusions, found to have mild elevation in serial trops with probable small NSTEMI, had [employer] ATTENDANT eval this Am with increased lethargy. Noted to have recd PO Xanax hours earlier, and evaluation revealed severe hypercarbia, prompting BIPAP initiation. After approx. 1 hour on BiPAP support, PCO2 not any better and discussed with beck, for MV support. Living Will directives from 1995 reviewed with manish and other consultants ( Cardiology); as per wording on the signed Directives: Life sustaining treatment ( LST) to be withheld / withdrawn : --If LST is experimental or not a proven therapy, or futile, or prolonging an imminent dying process. --If permanently unconscious ( total and irreversible LOC). --If in a terminal condition. --If having a serious irreversible illness or condition, and the likely risks and burdens associated with the medical intervention to be withheld or withdrawn outweigh the likely benefits from such intervention. Since none of the above stipulations fit patients current medical condition which is acute on chronic resp insufficiency with mild hypercarbia; and current hypercarbia and toxic / metabolic encephalopathy attributed to recent BZDP administration and respiratory fatigue due to increasing burden of bilateral pleural fluid which can be reversed with Thoracentesis and empiric abx coverage. Such conditions were discussed with beck; and earlier between beck and Cardiology. Sons are in agreement with current treatment plan consisting of interim MV support which should be reversible as pleural fluid is removed and CO2 ventilatory support is administered via MV ( as BiPAP has been ineffective in assisting CO2 elimination). Other vitals and I/O's reviewed. No fever spikes overnight. Does not appear distressed. Bp130/82, HR 118 in A Fib, RR 29 with sVT of 319 ml on 23/08, 60% with set rate 20 on BiPAP. ROS: No other pertinent negs or positives on 10+ system review obtainable due non-verbal status now. Allergies; NKDA Home Meds: Amlodipine, Atorvastatin, Vit D3, Digoxin, Lasix, MVIs, Januvia, Warfarin. PMSFH: All other Nursing and physician documentation reviewed to date; no new pertinent info noted relevant to current medical problems. EXAM- HEENT: no icterus, no gaze preference, Pupils 2-3 mm and reactive, Gag absent. no facial asymmetry, NECK: No JVD visible, supple, carotids equal upstroke bilat/no bruits CHEST: decreased BS bases, no wheezes audible HEART: Irregular, distant, tachy S1S2, no rubs, + 3/6 apical systolic murmur ABD: soft, no distention, no tympany, no palp tenderness, BS hypoactive EXT: Trace edema; no peripheral/ digital cyanosis, no calf tenderness or palpable cords, distal pulses intact and symmetrical. NEURO: minimal withdrawal of legs, moves arms spontaneously without any focal deficits. SKIN: no rashes, warm and dry. LABS: WBC= 9.1 HGB= 10.8 PLTs= 219K INR= 3.5 on 10/16/17, now 2.3 ABGs= 7.14/129/86, repeated 7.11/134/90. Db=148 K= 4.7 CL= 91 HCO3= 38 BUN/Cr= 15/0.6 BS= 139 CXR: R > L effusion with RML and RLL interstitial changes (my interp). ECHO: severe MS, , LVEF approx. 55%. IMPRESSION / MAJOR PROBLEMS NOW: 1. Acute Hypercapneic Resp Failure, 2 bilateral effusion, CHF, and Pneumonia 2. Toxic / metabolic Encephalopathy 2 Xanax and hypercarbia 3. Chronic A Fib on AC with warfarin 4. Severe MS and 5. h/o Pulm HTN PLAN: 1. Interim MV support, Thoracentesis, and may need INR correction prior to Thora procedure. 2. Sputum C&S, CT Chest reviewed. Sputum Cx and pleural fluid analyses ordered; and empiric abx coverage started. 3. BZDP reversal with Flumazenil given with very minimal effect. 4. If hypotensive, trial use of Milrinone for inotropic support. 5. See orders. Time spent with this patient did not overlap with any other provider's medical or critical care time. Additionally the code selected for the services rendered in this note includes the time spent: talking to the patients family, associated physicians and reviewing hospital data/results not listed here which extended to a total of 60 minutes.
[2017-10-17] MEDS ORDERED: Acetaminophen 650mg/20.3ml solution UD PO PRN (13:44)
--- NOTE | 2017-10-17 14:44 | US ---
PROCEDURE: Date of procedure: 10/17/2017 Procedure: 1. Ultrasound-guided Right thoracentesis, CPT 55339 Medications: 5cc 1% Lidocaine HISTORY: Right pleural effusion, shortness of breath TECHNIQUE: Following informed consent ,the Patients' right chest was marked. Procedure time-out was called, and the patient was placed in the sitting position and limited ultrasound showed a large right effusion. The patient's right back was prepped and draped in the usual sterile fashion. After the skin was anesthetized with lidocaine, a drainage catheter was advanced under ultrasound guidance into the pleural space. Ultrasound-guided thoracentesis was performed. A total of 1400 cubic centimeters of slight serosanguinous-colored fluid removed without complication. A Xeroform dressing was applied. IMPRESSION: Ultrasound guided Right thoracentesis. There were no immediate complications.
[2017-10-17 14:58] LABS: BODY FLUID TYPE PLEURAL/THORACENTESI
--- NOTE | 2017-10-17 15:05 | RAD ---
Date of service: 10/17/2017 PROCEDURE: CHEST RADIOGRAPH, 1 VIEW HISTORY: Status post right thoracentesis COMPARISON: None available. FINDINGS: LUNGS: Mild blunting of the left costophrenic margin from a small effusion. PLEURA: There is a pneumothorax confined to the right lower lobe, less than 10 percent. CARDIOVASCULAR: Normal. OSSEOUS STRUCTURES: No significant abnormalities. VISUALIZED UPPER ABDOMEN: Normal. OTHER FINDINGS: ET tube and NG tube in place. IMPRESSION: Small pneumothorax following right thoracentesis confined to the lower lobe. This may represent space from a fibrotic along that has not fully re-expanded and not a true pneumothorax. Recommend repeating chest x-ray to see if there is expansion of the pneumothorax or change to apex of lung.
--- NOTE | 2017-10-17 15:20 | CP.PCM.PCO ---
Addendum Addendum: CXR post-Procedure re-reviewed with IR. Small area that looks like a basilar PTX on the R after thoracentesis noted. Discussed with IR, hyperlucent area may be space, and may be compressed lung from chronic effusion that may have not yet re-expanded. Will get repeat CXR in a few hours, if similar or larger area noted , will need chest tube placement as she remains on MV support. Vent settings made to reduce TV to 300ml, add small increment in PEEP to help lung re -expand and fiO2 able to be reduced to 50%. Peak airway pressures at approx. 10 cm H2O and do not appear markedly elevated.
--- NOTE | 2017-10-17 15:25 | RAD ---
Date of service: 10/17/2017 HISTORY: post - intubation COMPARISON: Chest 10/17/2017 at 0726 hours FINDINGS: In situ ETT, tip of which lies approximately 5.55. In situ NGT, tip of which lies well below EG junction. LUNGS: Patchy opacities both lung bases right greater than left may represent atelectasis and or infiltrate with bilateral effusions. PLEURA: No significant pleural effusion identified, no pneumothorax apparent. CARDIOVASCULAR: Heart size difficult to assess due to silhouetting right cardiac border though appears essentially unchanged from prior study OSSEOUS STRUCTURES: No significant abnormalities. VISUALIZED UPPER ABDOMEN: Normal. OTHER FINDINGS: None. IMPRESSION: Patchy opacities both lung bases right greater than left may represent atelectasis and or infiltrate with bilateral effusions.
[2017-10-17 16:19] LABS: ABG ALLEN TEST YES; ARTERIAL BLOOD GAS HCO3 31.3 mmol/L (21-28); ARTERIAL BLOOD GAS O2 SAT 99.4 % (95-98); ARTERIAL BLOOD GAS PCO2 89 mm/Hg (35-45); ARTERIAL BLOOD GAS PH 7.25 (7.35-7.45); ARTERIAL BLOOD GAS PO2 102 mm/Hg (80-100); ARTERIAL BLOOD GAS TCO2 41.7 mmol/L (22-28)
[2017-10-17 17:11] LABS: BF GROSS APPEARANCE BLOODY (CLEAR)
[2017-10-17 17:35] LABS: BODY FLUID MONO/MACROPHAGE 24 % (0-0); BODY FLUID TOTAL COUNT 100 (0-0)
[2017-10-17 20:44] LABS: ABG ALLEN TEST YES; ARTERIAL BLOOD GAS HEMOGLOBIN 9.4 g/dL (11.7-17.4); ARTERIAL BLOOD GAS O2 SAT 99.8 % (95-98); ARTERIAL BLOOD GAS PCO2 71 mm/Hg (35-45); ARTERIAL BLOOD GAS PH 7.35 (7.35-7.45); ARTERIAL BLOOD GAS PO2 103 mm/Hg (80-100); ARTERIAL BLOOD GAS TCO2 41.4 mmol/L (22-28)
[2017-10-18] MEDS ORDERED: Albuterol-Ipratrop 3 mg / 0.5 (3 ml) UD INH STA (01:45)
--- NOTE | 2017-10-18 02:32 | CP.PCM.PN ---
Subjective - Date & Time of Evaluation Date of Evaluation: 10/18/17 Time of Evaluation: 02:32 - Subjective Subjective: Patient self extubated herself. Awake and alert Stating that she does not want the tube anymore. It is causing severe throat irritation. She is suctioned Orally. saturation in the 70s. Ventimask 50% applied with additional N/C with oxygen. SpO2 still in the 70s Duoneb given Patient suctioned nasopharynges clearing thick yellow secretion with tint of blood Decision made to place patient on BIPAP Inspirtion/Expiration 27/12 ,rate of 20 and FiO2 of 50. SpO2 incresed to 78-80% FiO2 increased to 80% and SpO2 increased to 87-88% To follow ABG in 1 hour. Objective - Vital Signs/Intake and Output Vital Signs (last 24 hours): Temp Pulse Resp BP Pulse Ox 36.6 F L 99 H 17 117/49 L 100 10/17/17 16:00 10/18/17 02:29 10/17/17 18:00 10/17/17 22:21 10/17/17 18:00 Intake and Output: 10/17/17 10/18/17 18:59 06:59 Intake Total 1600 Output Total 1850 Balance -250 - Medications Medications: Current Medications Acetaminophen (Tylenol 650mg/20.3ml Solution Ud) 650 mg PO Q6 PRN PRN Reason: Temperature Albuterol/Ipratropium (Duoneb 3 Mg/0.5 Mg (3 Ml) Ud) 3 ml INH RQ4 [facility] Aspirin (Aspirin Chewable) 81 mg PO DAILY [facility] Last Admin: 10/17/17 08:59 Dose: Not Given Atorvastatin Calcium (Lipitor) 20 mg PO HS [facility] Last Admin: 10/17/17 22:19 Dose: 20 mg Cholecalciferol (Vitamin D) 2,000 intlu PO DAILY [facility] Last Admin: 10/17/17 10:59 Dose: Not Given Digoxin (Lanoxin) 0.25 mg PO DAILY [facility] Last Admin: 10/17/17 09:00 Dose: Not Given Docusate Sodium (Colace) 100 mg PO BID PRN PRN Reason: Constipation Furosemide (Lasix) 40 mg IVP DAILY [facility] Last Admin: 10/17/17 11:26 Dose: Not Given Vancomycin HCl 1 gm/ Sodium (Chloride) 250 mls @ 166.667 mls/hr IVPB Q12 [facility] PRN Reason: Protocol Last Admin: 10/17/17 22:22 Dose: 166.667 mls/hr Piperacillin Sod/Tazobactam (Sod 3.375 gm/ Sodium Chloride) 100 mls @ 100 mls/ hr IVPB Q6 [facility] PRN Reason: Protocol Last Admin: 10/17/17 22:23 Dose: 100 mls/hr Sodium Chloride (Sodium Chloride 0.9%) 1,000 mls @ 1,000 mls/hr IV .Q1H [facility] Stop: 10/18/17 12:51 Last Admin: 10/17/17 10:30 Dose: 1,000 mls/hr Multivitamins/Minerals (Therapeutic-M Tab) 1 tab PO DAILY [facility] Last Admin: 10/17/17 10:56 Dose: Not Given Nitroglycerin (Nitro-Bid 2% Oint) 1 ea TOP Q6 [facility] Last Admin: 10/17/17 22:21 Dose: 1 ea Sitagliptin Phosphate (Januvia) 25 mg PO DAILY [facility] Last Admin: 10/17/17 08:59 Dose: Not Given - Labs Labs: 10/16/17 05:05 10/17/17 05:00 PT 26.3 Seconds (9.8-13.1) H D 10/17/17 05:00 INR 2.3 10/17/17 05:00 APTT 44.1 Seconds (25.6-37.1) H 10/15/17 14:50
[2017-10-18 03:26] LABS: ABG ALLEN TEST YES; ARTERIAL BLOOD GAS HCO3 31.9 mmol/L (21-28); ARTERIAL BLOOD GAS HEMOGLOBIN 9.9 g/dL (11.7-17.4); ARTERIAL BLOOD GAS O2 CAPACITY 13.6 mL/dL (16-24); ARTERIAL BLOOD GAS O2 CONTENT 11.8 ML/dL (15-23); ARTERIAL BLOOD GAS PCO2 79 mm/Hg (35-45); ARTERIAL BLOOD GAS PH 7.29 (7.35-7.45); ARTERIAL BLOOD GAS PO2 59 mm/Hg (80-100); ARTERIAL BLOOD GAS TCO2 40.4 mmol/L (22-28)
[2017-10-18] MEDS: Albuterol-Ipratrop 3 mg / 0.5 (3 ml) UD INH SCH ×2 (03:40→08:28)
[2017-10-18] MEDS: Piperacillin/Tazobact 3.375 GM in Sodium Chloride 0.9% 100 ML IVPB SCH ×4 (04:06→21:16)
[2017-10-18] MEDS: Nitroglycerin 2% Ointment Foilpak UD TOP SCH ×4 (04:15→21:28)
[2017-10-18 06:00] LABS: INR 1.8; PROTHROMBIN TIME 20.7 Seconds (9.8-13.1)
[2017-10-18 06:03] LABS: PARTIAL THROMBOPLASTIN TIME 27.6 Seconds (25.6-37.1)
[2017-10-18 06:12] LABS: BASO % 0.1 % (0.0-2.0); HEMOGLOBIN 10.3 g/dL (12.0-16.0); LYMPH # 0.3 K/uL (1.0-4.3); LYMPH % 2.8 % (20.0-40.0); MEAN CELL VOLUME 83.1 fl (81.0-99.0); MEAN CORPUSCULAR HEMOGLOBIN 26.1 pg (27.0-31.0); MEAN CORPUSCULAR HGB CONC 31.4 g/dL (33.0-37.0); MEAN PLATELET VOLUME 8.7 fl (7.2-11.7); MONO # 1.7 K/uL (0.0-0.8); MONO % 14.5 % (0.0-10.0); NEUT # 9.5 K/uL (1.8-7.0); NEUT % 82.6 % (50.0-75.0); NRBC % 0.1 % (0.0-0.0); RBC 3.96 Mil/uL (3.80-5.20); RED CELL DISTRIBUTION WIDTH 17.8 % (11.5-14.5); WHITE BLOOD COUNT 11.4 K/uL (4.8-10.8)
[2017-10-18 06:55] LABS: ALB/GLOB RATIO 1.2 (1.0-2.1); ALBUMIN 3.9 g/dL (3.5-5.0); ALT/SGPT 35 U/L (9-52); AST/SGOT 38 U/L (14-36); BLOOD UREA NITROGEN 26 mg/dl (7-17); CALCIUM 9.4 mg/dL (8.4-10.2); GFR AFRICAN-AMERICAN > 60; GFR NON-AFRICAN AMERICAN 60
[2017-10-18 06:56] LABS: ABG ALLEN TEST YES; ARTERIAL BLOOD GAS HCO3 31.6 mmol/L (21-28); ARTERIAL BLOOD GAS HEMOGLOBIN 10.4 g/dL (11.7-17.4); ARTERIAL BLOOD GAS O2 CAPACITY 14.2 mL/dL (16-24); ARTERIAL BLOOD GAS O2 CONTENT 11.5 ML/dL (15-23); ARTERIAL BLOOD GAS O2 SAT 80.9 % (95-98); ARTERIAL BLOOD GAS PCO2 70 mm/Hg (35-45); ARTERIAL BLOOD GAS PH 7.33 (7.35-7.45); ARTERIAL BLOOD GAS PO2 54 mm/Hg (80-100)
--- NOTE | 2017-10-18 07:37 | RAD ---
Date of service: 10/18/2017 HISTORY: intubated COMPARISON: Portable chest 10/17/2017 at 4:09 p.m.. FINDINGS: LUNGS: Marked atelectasis in the right base with potential pleural effusion indicating right hydro pneumothorax with volume loss causing mediastinal shift toward the right. Diminished left basilar atelectasis is noted. Trace of pleural effusion not excluded. PLEURA: As above. CARDIOVASCULAR: Stable cardiac silhouette. No pulmonary vascular congestion. OSSEOUS STRUCTURES: No significant abnormalities. VISUALIZED UPPER ABDOMEN: Normal. OTHER FINDINGS: None. IMPRESSION: Right hydro pneumothorax with significant volume loss resulting and mediastinal shift toward the right. Improved aeration left base with limited left basilar atelectasis favored over infiltrate. Minimal left pleural effusion not excluded.
--- NOTE | 2017-10-18 09:01 | CP.CCUPN ---
CCU Subjective - Physician Review Subjective (Free Text): Patient self-extubated overnight, awake, alert, and conversant. When asked by doctors, states she longer wants to be on nor placed back to MV support. Presently on high levels BiPAP at 18/10. 80% oxygen, set rate 20 and avg TV only 278 ml. SPO2 variable from 80 to 91%. She feels hungry, asking for ice chips, denies any new discomfort. Other vitals and I/O's reviewed. No fever spikes overnight. Does not appear distressed. ROS: No other pertinent negs or positives on 10+ system review. PMSFH: All other Nursing and physician documentation reviewed to date; no new pertinent info noted relevant to current medical problems. EXAM- HEENT: no icterus, no gaze preference, Pupils 2-3 mm and reactive, Gag + NECK: No JVD visible, supple, carotids equal upstroke bilat/no bruits CHEST: decreased BS bases, no wheezes audible HEART: Irregular, distant, tachy S1S2, no rubs, + 3/6 apical systolic murmur ABD: soft, no distention, no tympany, no palp tenderness, BS hypoactive EXT: Trace edema; no peripheral/ digital cyanosis, no calf tenderness or palpable cords, distal pulses intact and symmetrical. NEURO: moves arms and legs without any focal deficits. SKIN: no rashes, warm and dry. LABS: WBC= 11.4 HGB= 10.3 PLTs= 181K INR= 1.8 ABGs= 7.33/70/59 Be=645 K= 4.6 CL= 97 HCO3= 37 BUN/Cr= 26/0.9 BS= 108 CXR: serial films from yesterday and this mornings study all reviewed, new RLL lobar atelectasis with new fluid accumulation noted, +hydropneumothorax ( my interp). IMPRESSION / MAJOR PROBLEMS NOW: 1. Acute Hypercapneic Resp Failure, 2 bilateral effusion, CHF, and Pneumonia 2. s/p Toxic / metabolic Encephalopathy 2 Xanax and hypercarbia 3. Chronic A Fib on AC with warfarin 4. Severe MS and 5. h/o Pulm HTN PLAN: 1. Patient has re-confirmed Living Will directives. 2. Chemistry results from pleural fluid still pending, or ? not done? 3. Consider CT chest to further evaluate R lung findings. 4. Will try HFNC from present BiPAP support. 5. Ongoing empiric abx coverage. CCU Objective - Vital Signs / Intake & Output Vital Signs (Last 4 hours): Vital Signs Temp Pulse Resp BP Pulse Ox 10/18/17 08:36 100 H 10/18/17 08:00 99.1 F 117 H 25 H 138/71 85 L 10/18/17 06:00 98 H 25 H 130/64 82 L Intake and Output (Last 8hrs): Intake & Output 10/17/17 10/18/17 10/18/17 22:59 06:59 14:59 Intake Total 350 640 100 Output Total 1550 400 Balance -1200 240 100 Weight 120 lb Intake: IV 115 20 Intake, Piggyback 450 Oral 100 Tube Feeding 135 70 Free Water Flush 100 100 Output: Urine 150 400 Urine, Voided 150 400 Other 1400
[2017-10-18] MEDS: Digoxin 250 mcg (0.25 mg) Tab PO SCH (09:22)
[2017-10-18] MEDS: Multivitamin With Minerals Tab PO SCH (09:22)
--- NOTE | 2017-10-18 09:22 | CP.PCM.PN ---
Subjective - Date & Time of Evaluation Date of Evaluation: 10/18/17 Time of Evaluation: 09:21 - Subjective Subjective: self extubated last night repeat CXR: hydro ptx bipap overnight improved hypercapnea, however O2 low despite respiratory support. IR + pigtail? Objective - Vital Signs/Intake and Output Vital Signs (last 24 hours): Temp Pulse Resp BP Pulse Ox 99.1 F 100 H 25 H 138/71 85 L 10/18/17 08:00 10/18/17 08:36 10/18/17 08:00 10/18/17 08:00 10/18/17 08:00 Intake and Output: 10/18/17 10/18/17 06:59 18:59 Intake Total 740 100 Output Total 400 Balance 340 100 Vitals Reviewed GEN: thin, ill appearing HEENT: NCAT, PERRL, EOMI HEART: RRR, +S1S2, NO MRG LUNG: decreased bs bl ABD: soft, NT, ND, No HSM, No masses EXT: normal pedal pulses, normal capillary refill NEURO: awake, alert, no focal deficits SKIN: warm, dry PSYCH: normal mood, normal affect - Medications Medications: Current Medications Acetaminophen (Tylenol 650mg/20.3ml Solution Ud) 650 mg PO Q6 PRN PRN Reason: Temperature Albuterol/Ipratropium (Duoneb 3 Mg/0.5 Mg (3 Ml) Ud) 3 ml INH RQ4 [facility] Last Admin: 10/18/17 08:28 Dose: 3 ml Aspirin (Aspirin Chewable) 81 mg PO DAILY [facility] Last Admin: 10/17/17 08:59 Dose: Not Given Atorvastatin Calcium (Lipitor) 20 mg PO HS [facility] Last Admin: 10/17/17 22:19 Dose: 20 mg Cholecalciferol (Vitamin D) 2,000 intlu PO DAILY [facility] Last Admin: 10/17/17 10:59 Dose: Not Given Digoxin (Lanoxin) 0.25 mg PO DAILY [facility] Last Admin: 10/17/17 09:00 Dose: Not Given Docusate Sodium (Colace) 100 mg PO BID PRN PRN Reason: Constipation Furosemide (Lasix) 40 mg IVP DAILY [facility] Last Admin: 10/17/17 11:26 Dose: Not Given Vancomycin HCl 1 gm/ Sodium (Chloride) 250 mls @ 166.667 mls/hr IVPB Q12 [facility] PRN Reason: Protocol Last Admin: 10/17/17 22:22 Dose: 166.667 mls/hr Piperacillin Sod/Tazobactam (Sod 3.375 gm/ Sodium Chloride) 100 mls @ 100 mls/ hr IVPB Q6 [facility] PRN Reason: Protocol Last Admin: 10/18/17 04:06 Dose: 100 mls/hr Multivitamins/Minerals (Therapeutic-M Tab) 1 tab PO DAILY [facility] Last Admin: 10/17/17 10:56 Dose: Not Given Nitroglycerin (Nitro-Bid 2% Oint) 1 ea TOP Q6 [facility] Last Admin: 10/18/17 04:15 Dose: Not Given Sitagliptin Phosphate (Januvia) 25 mg PO DAILY [facility] Last Admin: 10/17/17 08:59 Dose: Not Given - Labs Labs: 10/18/17 04:45 10/18/17 04:45 PT 20.7 Seconds (9.8-13.1) H D 10/18/17 04:45 INR 1.8 10/18/17 04:45 APTT 27.6 Seconds (25.6-37.1) 10/18/17 04:45 Assessment and Plan - Assessment and Plan (Free Text) Plan: 86 yo female with history of Pulmonary HTN, CHF, Chronic AFib and DM2 came in because of SOB and dizziness Pt was found to be in CHF exacerb, had Pleural effusion on CXR and slight TRoponin elevation. She was admitted to Telemetry. Cardio consulted. 10/17 :became somnolent - transferred to ICU. ABG showed markedly elevated CO2. She was placed on Bipap, intubated yesterday. Patient self extubated overnight, also developed hydroptx, requiring pigtail by IR today. (1) Acute respiratory failure with hypercapnia ( nultifactorial -Pleural effusion, PNA, CO2 retention, sedative med ) Status: Acute Pt placed on Bipap, then intubated, self extubated and placed back on bipap. s/p thoracentesis for effusion yesterday she did not improve saturation on bipap despite respiratory support this morning after self extubation 10/18 - +Hydroptx, pigtail placed by IR (2) CO2 narcosis Status: Acute improving (3) Compressive atelectasis vs Infiltrates ( POA) Status: Acute Pt started on IV Zosyn and Vanco (4) Elevated troponin Status: Acute prob sec to CHF trending down Pt onnASA, Statin (5) Prothrombin time increased due to coumadin Status: Acute Pt on Coumadin for A fib INR 3.5 on admission Hold Coumadin (6) Pleural effusion ? sec to CHF Status: Acute Plan for Thoracenetesis with Pleural fluid analysis (7) CHF (congestive heart failure) , exacerbation, combined Systolic and Diastolic dysfxn Status: Acute ECHO : Mitral stenosis and regurgitation, Aortic stenosis, Pulm HTN, EF=55% cont Digoxin Lasix prn (8) Paroxysmal atrial fibrillation Status: Chronic Pt was on Warfarin at home - on hold as pt is going fo Thoracentesis (9) HTN (hypertension) Status: Acute Metoprolol IV prn for now 10. DM Type ii accucheck with coverage
[2017-10-18] MEDS: Cholecalciferol 1,000 INTLU TAB PO SCH (09:23)
--- NOTE | 2017-10-18 09:57 | CP.PCM.PN ---
Subjective - Date & Time of Evaluation Date of Evaluation: 10/18/17 Time of Evaluation: 08:30 - Subjective Subjective: Overnight events reviewed Case discussed with Dr. Matias Pt selt exubated last noght, now on BiPAP with pulse ox at 93-95% Awake and able to communicate A Fib at 110BPM, BP 138/ 70 mm Hg ABGs noted (Still hypercarbic) Chest x-ray today shows ( ?) hydropneumothorax on the right IR will review the x-ray (? chest tube to drain the fluid) INR 1.8 today Objective - Vital Signs/Intake and Output Vital Signs (last 24 hours): Temp Pulse Resp BP Pulse Ox 99.1 F 116 H 25 H 136/69 85 L 10/18/17 08:00 10/18/17 09:29 10/18/17 09:24 10/18/17 09:29 10/18/17 08:00 Intake and Output: 10/18/17 10/18/17 06:59 18:59 Intake Total 740 100 Output Total 400 Balance 340 100 - Medications Medications: Current Medications Acetaminophen (Tylenol 650mg/20.3ml Solution Ud) 650 mg PO Q6 PRN PRN Reason: Temperature Albuterol/Ipratropium (Duoneb 3 Mg/0.5 Mg (3 Ml) Ud) 3 ml INH RQ4 [facility] Last Admin: 10/18/17 08:28 Dose: 3 ml Aspirin (Aspirin Chewable) 81 mg PO DAILY [facility] Last Admin: 10/18/17 09:23 Dose: Not Given Atorvastatin Calcium (Lipitor) 20 mg PO HS [facility] Last Admin: 10/17/17 22:19 Dose: 20 mg Cholecalciferol (Vitamin D) 2,000 intlu PO DAILY [facility] Last Admin: 10/18/17 09:23 Dose: 2,000 intlu Digoxin (Lanoxin) 0.25 mg PO DAILY [facility] Last Admin: 10/18/17 09:22 Dose: 0.25 mg Docusate Sodium (Colace) 100 mg PO BID PRN PRN Reason: Constipation Furosemide (Lasix) 40 mg IVP DAILY [facility] Last Admin: 10/18/17 09:29 Dose: 40 mg Vancomycin HCl 1 gm/ Sodium (Chloride) 250 mls @ 166.667 mls/hr IVPB Q12 [facility] PRN Reason: Protocol Last Admin: 10/17/17 22:22 Dose: 166.667 mls/hr Piperacillin Sod/Tazobactam (Sod 3.375 gm/ Sodium Chloride) 100 mls @ 100 mls/ hr IVPB Q6 [facility] PRN Reason: Protocol Last Admin: 10/18/17 04:06 Dose: 100 mls/hr Multivitamins/Minerals (Therapeutic-M Tab) 1 tab PO DAILY [facility] Last Admin: 10/18/17 09:22 Dose: 1 tab Nitroglycerin (Nitro-Bid 2% Oint) 1 ea TOP Q6 [facility] Last Admin: 10/18/17 09:29 Dose: 1 ea Sitagliptin Phosphate (Januvia) 25 mg PO DAILY [facility] Last Admin: 10/18/17 09:22 Dose: 25 mg - Labs Labs: 10/18/17 04:45 10/18/17 04:45 PT 20.7 Seconds (9.8-13.1) H D 10/18/17 04:45 INR 1.8 10/18/17 04:45 APTT 27.6 Seconds (25.6-37.1) 10/18/17 04:45
--- NOTE | 2017-10-18 10:02 | RAD ---
Date of service: 10/17/2017 PROCEDURE: CHEST RADIOGRAPH, 1 VIEW HISTORY: s/p thoracentesis, f/u pneumothorax COMPARISON: Portable chest 10/17/2017. FINDINGS: Endotracheal and nasogastric tubes do not appear significantly changed in the interval. LUNGS: A mild right pneumothorax appreciated at the right base without significant interval improvement or worsening. Trapped lung remains a possibility secondary to chronic right pleural effusion and visceral pleural fibrosis. Limited atelectasis seen the medial right base. No interval changes identified in left basilar opacity may be elevated left hemidiaphragm, effusion or airspace disease. No left pneumothorax appreciable. PLEURA: As above. CARDIOVASCULAR: Rebeca sulcal is stable. No pulmonary vascular congestion. OSSEOUS STRUCTURES: No significant abnormalities. VISUALIZED UPPER ABDOMEN: Normal. OTHER FINDINGS: None. IMPRESSION: Persistent small right basilar pneumothorax appreciated, potentially is a function of "Trapped lung." Please see discussion above. Persistent opacity left base from elevated left hemidiaphragm, airspace disease or pleural effusion. No left pneumothorax.
[2017-10-18] MEDS ORDERED: Lidocaine Hydrochloride 1% 10 ML ONE (10:07)
--- NOTE | 2017-10-18 10:17 | PCM.SURG1 ---
Surgeon's Initial Post Op Note - Surgeon's Notes Surgeon: Gilbert Reeder MD Telephone Directory Distributor Driver: NONE Type of Anesthesia: Local Pre-Operative Diagnosis: HYdropneumothorax Operative Findings: US showed right hydropneumothorax Post-Operative Diagnosis: hydropneumothorax Operation Performed: Placement of 8 fr pleural drainage catheter right lower chest. Specimen/Specimens Removed: NONE Estimated Blood Loss: EBL {In ML}: 0 Blood Products Given: N/A Drains Used: Chest Tubes Post-Op Condition: Fair Date of Surgery/Procedure: 10/18/17 Time of Surgery/Procedure: 10:15
--- NOTE | 2017-10-18 12:57 | RAD ---
Date of service: 10/18/2017 PROCEDURE: CHEST RADIOGRAPH, 1 VIEW HISTORY: Status post right chest tube Relevant interventional procedure(s): October 18, 2017. 11:32. Placement of right chest tube under ultrasound guidance COMPARISON: October 18, 2017. Time of the most recent examination: 04:47. FINDINGS: LUNGS: Improved aeration of the right lung status post pigtail catheter placement in the right pleural space. Stable left lower lobe infiltrate. PLEURA: Pigtail catheter identified in the right pleural space inferiorly. Decrease in right pleural effusion. Stable left pleural effusion. CARDIOVASCULAR: Normal. OSSEOUS STRUCTURES: No significant abnormalities. VISUALIZED UPPER ABDOMEN: Normal. OTHER FINDINGS: None. IMPRESSION: 1. Status post right pigtail catheter placement. No pneumothorax. Reduction in pleural effusion, commensurate re-expansion right lower lobe. Considerable consolidative changes however remain. 2. Stable findings left kacey thorax.
--- NOTE | 2017-10-18 17:37 | CP.PCM.PCO ---
Physician Communication Note - Physician Communication Note Physician Communication Note: See Below: Addendum Addendum: Since pigtail placement, chest tube has drained approx. 300 ml of serosanguinous appearing fluid; she remains awake, alert and conversant on BiPAP mask, breathing 22/min with average TV of 438ml on 27/12 backup rate 20 AND 100% OXYGEN, SPO2 is 99-100%. She is now being offered dinner food to eat by the Nurse. CXR reviewed earlier post pigtail catheter placement shows no PTX but increased interstitial marking throughout the RLL, RML and appears to be extending upward. A small residual effusion noted along the R costophrenic angle (my interp).
[2017-10-19] MEDS: Nitroglycerin 2% Ointment Foilpak UD TOP SCH ×4 (03:26→21:00)
[2017-10-19] MEDS: Piperacillin/Tazobact 3.375 GM in Sodium Chloride 0.9% 100 ML IVPB SCH ×4 (04:00→21:01)
[2017-10-19 04:13] LABS: ABG ALLEN TEST YES; ARTERIAL BLOOD GAS HCO3 36.7 mmol/L (21-28); ARTERIAL BLOOD GAS O2 CAPACITY 12.7 mL/dL (16-24); ARTERIAL BLOOD GAS O2 CONTENT 12.8 ML/dL (15-23); ARTERIAL BLOOD GAS O2 SAT 100.4 % (95-98); ARTERIAL BLOOD GAS PCO2 66 mm/Hg (35-45); ARTERIAL BLOOD GAS PH 7.41 (7.35-7.45); ARTERIAL BLOOD GAS PO2 190 mm/Hg (80-100); ARTERIAL BLOOD GAS TCO2 43.8 mmol/L (22-28)
[2017-10-19 05:44] LABS: HEMOGLOBIN 9.1 g/dL (12.0-16.0); MEAN CELL VOLUME 83.1 fl (81.0-99.0); MEAN CORPUSCULAR HEMOGLOBIN 26.4 pg (27.0-31.0); MEAN CORPUSCULAR HGB CONC 31.8 g/dL (33.0-37.0); RBC 3.46 Mil/uL (3.80-5.20); RED CELL DISTRIBUTION WIDTH 17.6 % (11.5-14.5); WHITE BLOOD COUNT 10.8 K/uL (4.8-10.8)
[2017-10-19 06:06] LABS: ALB/GLOB RATIO 1.1 (1.0-2.1); ALBUMIN 3.4 g/dL (3.5-5.0); ALT/SGPT 31 U/L (9-52); AST/SGOT 25 U/L (14-36); BLOOD UREA NITROGEN 26 mg/dl (7-17); CALCIUM 9.2 mg/dL (8.4-10.2); GFR AFRICAN-AMERICAN > 60; GFR NON-AFRICAN AMERICAN 60
--- NOTE | 2017-10-19 07:32 | CP.CCUPN ---
CCU Subjective - Physician Review Subjective (Free Text): Has remained on BiPAP support /, fiO2 reduced to 60% after AM ABG results, SPO2 99% now, and average TV approx. 450 ml. R pigtail catheter intact. Other vitals and I/O's reviewed. No fever spikes overnight. Chest tube has drained almost 800 ml serosang fluid. Overall fluid balance is neg 0.4 L. ROS: No other pertinent negs or positives on 10+ system review. PMSFH: All other Nursing and physician documentation reviewed to date; no new pertinent info noted relevant to current medical problems. EXAM- HEENT: no icterus, no gaze preference, Pupils 2-3 mm and reactive NECK: No JVD visible, supple, carotids equal upstroke bilat/no bruits CHEST: decreased BS bases, no wheezes audible HEART: Irregular, distant, tachy S1S2, no rubs, + 3/6 apical systolic murmur ABD: soft, no distention, no tympany, no palp tenderness, BS hypoactive EXT: Trace edema; no peripheral/ digital cyanosis, no calf tenderness or palpable cords, distal pulses intact and symmetrical. NEURO: no focal deficts. SKIN: no rashes, warm and dry. LABS: WBC= 10.8 HGB= 9.1 PLTs= 178K INR= 1.8 yesterday ABGs= 7.41/66/190 Te=883 K= 4.4 CL= 98 HCO3= 39 BUN/Cr= 26/0.9 BS= 96 CXR: pigtail catheter in R lower chest, no visible PTS seen, interstitial changes noted involving RLL and RML area. Small bilat effusions persist. (my interp). IMPRESSION / MAJOR PROBLEMS NOW: 1. Acute Hypercapneic Resp Failure, 2 bilateral effusion, CHF, and Pneumonia 2. s/p Toxic / metabolic Encephalopathy 2 Xanax and hypercarbia 3. Chronic A Fib on AC with warfarin- AC has been held since hospital admission 4. Severe MS and 5. h/o Pulm HTN PLAN: 1. Try to wean off BiPAP support, will give reprieves off BiPAP every 4 hours as tolerated. 2. Ongoing pigtail drainage if fluid output over 100ml daily. 3. Empiric Abx coverage 4. Get OOB as tolerated. 5. Patient herself has re-confirmed Advance Directives, no return back to MV support if needed. CCU Objective - Vital Signs / Intake & Output Vital Signs (Last 4 hours): Vital Signs Temp Pulse Resp BP Pulse Ox 10/19/17 06:00 96 H 17 118/69 97 10/19/17 04:02 86 10/19/17 04:00 98.5 F 86 17 131/62 97 Intake and Output (Last 8hrs): Intake & Output 10/18/17 10/19/17 10/19/17 22:59 06:59 14:59 Intake Total 945 41 Output Total 1300 840 Balance -355 -799 Weight 100 lb 12.8 oz Intake: IV 10 16 Intake, Piggyback 550 Oral 385 25 Output: Chest Tube Drainage 300 490 Right Mid-Axillary Chest 300 490 Urine 1000 350 Urethral (Lama) 350 Urine, Voided 1000
--- NOTE | 2017-10-19 08:09 | RAD ---
Date of service: 10/19/2017 HISTORY: f/u pigtail catheter placement COMPARISON: Portable chest 10/18/2017 1201 p.m.. FINDINGS: LUNGS: Diminished right-sided infiltrate identified in the mid inferior thoracic cavity with limited mild right pleural effusion unchanged. Trace of pleural effusion unchanged as well. No pneumothorax bilaterally. Limited medial basilar atelectasis favored over infiltrate at the left base. PLEURA: As above. CARDIOVASCULAR: Stable cardiomediastinal silhouette. OSSEOUS STRUCTURES: No significant abnormalities. VISUALIZED UPPER ABDOMEN: Normal. OTHER FINDINGS: None. IMPRESSION: Improving right-sided pulmonary infiltrates with medial basilar atelectasis unchanged at the left base. No interval change in limited right greater than left pleural effusions.
[2017-10-19] MEDS: Digoxin 250 mcg (0.25 mg) Tab PO SCH (08:47)
[2017-10-19] MEDS: Multivitamin With Minerals Tab PO SCH (08:48)
--- NOTE | 2017-10-19 09:20 | CP.PCM.PN ---
Subjective - Date & Time of Evaluation Date of Evaluation: 10/19/17 Time of Evaluation: 08:20 - Subjective Subjective: Still needs BiPAP at lower FiO2 ABGs much improved pH normal in presence of PCO2 60 mm Hg A Fib at 80 BPM BP 126/70 mm Hg Chest tube draining sero sanguinous fluid Chest x ray noted (discussed with Dr. Matias) Labs noted Pulm evaluation requested with Dr. Richardson Objective - Vital Signs/Intake and Output Vital Signs (last 24 hours): Temp Pulse Resp BP Pulse Ox 98.1 F 89 19 120/60 100 10/19/17 08:00 10/19/17 08:16 10/19/17 08:00 10/19/17 08:48 10/19/17 08:00 Intake and Output: 10/19/17 10/19/17 06:59 18:59 Intake Total 546 120 Output Total 840 Balance -294 120 - Medications Medications: Current Medications Acetaminophen (Tylenol 650mg/20.3ml Solution Ud) 650 mg PO Q6 PRN PRN Reason: Temperature Aspirin (Aspirin Chewable) 81 mg PO DAILY [facility] Last Admin: 10/19/17 08:47 Dose: 81 mg Atorvastatin Calcium (Lipitor) 20 mg PO HS [facility] Last Admin: 10/18/17 21:08 Dose: 20 mg Cholecalciferol (Vitamin D) 2,000 intlu PO DAILY [facility] Last Admin: 10/18/17 09:23 Dose: 2,000 intlu Digoxin (Lanoxin) 0.25 mg PO DAILY [facility] Last Admin: 10/19/17 08:47 Dose: 0.25 mg Docusate Sodium (Colace) 100 mg PO BID PRN PRN Reason: Constipation Furosemide (Lasix) 40 mg IVP DAILY [facility] Last Admin: 10/19/17 08:48 Dose: 40 mg Vancomycin HCl 1 gm/ Sodium (Chloride) 250 mls @ 166.667 mls/hr IVPB Q12 [facility] PRN Reason: Protocol Last Admin: 10/19/17 08:49 Dose: 166.667 mls/hr Piperacillin Sod/Tazobactam (Sod 3.375 gm/ Sodium Chloride) 100 mls @ 100 mls/ hr IVPB Q6 [facility] PRN Reason: Protocol Last Admin: 10/18/17 21:16 Dose: 100 mls/hr Multivitamins/Minerals (Therapeutic-M Tab) 1 tab PO DAILY [facility] Last Admin: 10/19/17 08:48 Dose: 1 tab Nitroglycerin (Nitro-Bid 2% Oint) 1 ea TOP Q6 [facility] Last Admin: 10/19/17 03:26 Dose: 1 ea Sitagliptin Phosphate (Januvia) 25 mg PO DAILY [facility] Last Admin: 10/18/17 09:22 Dose: 25 mg - Labs Labs: 10/19/17 04:40 10/19/17 04:40 PT 20.7 Seconds (9.8-13.1) H D 10/18/17 04:45 INR 1.8 10/18/17 04:45 APTT 27.6 Seconds (25.6-37.1) 10/18/17 04:45
[2017-10-19] MEDS: Cholecalciferol 1,000 INTLU TAB PO SCH (10:25)
--- NOTE | 2017-10-19 11:41 | CP.PCM.PN ---
<Eryn Au - Last Filed: 10/19/17 15:48> Subjective - Date & Time of Evaluation Date of Evaluation: 10/19/17 Time of Evaluation: 09:28 - Subjective Subjective: Patient seen and examined with Dr. Tirso Au Lynn, , PGY-1 Patient laying upright in bed, awake on Bipap. Family member is present at bedside. Patient is afebrile with right pigtail catheter in place. Objective - Vital Signs/Intake and Output Vital Signs (last 24 hours): Temp Pulse Resp BP Pulse Ox 98.1 F 87 26 H 120/60 96 10/19/17 08:00 10/19/17 10:23 10/19/17 09:49 10/19/17 10:23 10/19/17 09:49 Intake and Output: 10/19/17 10/19/17 06:59 18:59 Intake Total 546 770 Output Total 840 Balance -294 770 - Medications Medications: Current Medications Acetaminophen (Tylenol 650mg/20.3ml Solution Ud) 650 mg PO Q6 PRN PRN Reason: Temperature Aspirin (Aspirin Chewable) 81 mg PO DAILY [facility] Last Admin: 10/19/17 08:47 Dose: 81 mg Atorvastatin Calcium (Lipitor) 20 mg PO HS [facility] Last Admin: 10/18/17 21:08 Dose: 20 mg Cholecalciferol (Vitamin D) 2,000 intlu PO DAILY [facility] Last Admin: 10/19/17 10:25 Dose: 2,000 intlu Digoxin (Lanoxin) 0.25 mg PO DAILY [facility] Last Admin: 10/19/17 08:47 Dose: 0.25 mg Docusate Sodium (Colace) 100 mg PO BID PRN PRN Reason: Constipation Furosemide (Lasix) 40 mg IVP DAILY [facility] Last Admin: 10/19/17 08:48 Dose: 40 mg Vancomycin HCl 1 gm/ Sodium (Chloride) 250 mls @ 166.667 mls/hr IVPB Q12 [facility] PRN Reason: Protocol Last Admin: 10/19/17 08:49 Dose: 166.667 mls/hr Piperacillin Sod/Tazobactam (Sod 3.375 gm/ Sodium Chloride) 100 mls @ 100 mls/ hr IVPB Q6 [facility] PRN Reason: Protocol Last Admin: 10/19/17 10:24 Dose: 100 mls/hr Multivitamins/Minerals (Therapeutic-M Tab) 1 tab PO DAILY [facility] Last Admin: 10/19/17 08:48 Dose: 1 tab Nitroglycerin (Nitro-Bid 2% Oint) 1 ea TOP Q6 [facility] Last Admin: 10/19/17 10:23 Dose: 1 ea Sitagliptin Phosphate (Januvia) 25 mg PO DAILY [facility] Last Admin: 10/18/17 09:22 Dose: 25 mg - Labs Labs: 10/19/17 04:40 10/19/17 04:40 PT 20.7 Seconds (9.8-13.1) H D 10/18/17 04:45 INR 1.8 10/18/17 04:45 APTT 27.6 Seconds (25.6-37.1) 10/18/17 04:45 - Constitutional Appears: No Acute Distress - Head Exam Head Exam: ATRAUMATIC - Eye Exam Eye Exam: EOMI - Respiratory Exam Respiratory Exam: Decreased Breath Sounds, Rales Additional comments: right pigtail catheter in place - Cardiovascular Exam Cardiovascular Exam: Irregular Rhythm, +S1, +S2 - GI/Abdominal Exam Additional comments: soft, BS +, nontender, no rigidity - Extremities Exam Additional comments: calves nontender - Neurological Exam Neurological Exam: Oriented x3 - Skin Skin Exam: Dry, Normal Color Assessment and Plan - Assessment and Plan (Free Text) Assessment: 86 y/o F with h/o CHF, pulmonary HTN, Chronic AFib & DMII who presented to ED with c/o SOB and dyspnea was found to have CHF exacerbation with B/L pleura effusion as well as minimally elevated Troponins. She was admitted to telemetry , and since 10/17 has been in ICU because of somnolensce. ABG performed at that time found the patient to be severely hypercapneic. Bipap was placed, the patient was intubated, and then self-exubated. 1. Acute Hypercapneic Respiratory Failure secondary to B/L pleural effusion, Pneumonia & CO2 retention -Will continue Bipap with attempts to wean patient off 2. Acute CO2 Narcosis -Management as stated above 3. Hydropneumothorax -S/P chest tube placement 4. Compressive Atelectasis -Continue IV Zosyn & vanco 5. Acute Elevated Troponin -Unlikely secondary to ischemia -Will continue ASA & Statin therapy 6. Prothrombin time increased due to coumadin -Last PT/INR (10/18/2017): 20.7/1.8 -Will continue to hold warfarin 7. Pleural Effusion likely secondary to CHF -Pleural effusion analysis indicative of transudative effusion -Continue pigtail for drainage 8. Acute CHF exacerbation, combine systolic & dyastolic dysfunction -Will continue digoxin -Will continue Lasix as needed 9. Paroxysmal A. Fib -Will continue to hold Wafarin -Patient is currently rate controlled 10. HTN - Metoprolol as needed 11. DM Type II -Accucheck with coverage <Gill Chahal - Last Filed: 10/19/17 16:28> Objective - Vital Signs/Intake and Output Vital Signs (last 24 hours): Temp Pulse Resp BP Pulse Ox 98.3 F 76 20 115/50 L 95 10/19/17 12:00 10/19/17 13:57 10/19/17 13:57 10/19/17 13:57 10/19/17 13:57 Intake and Output: 10/19/17 10/19/17 06:59 18:59 Intake Total 546 1110 Output Total 840 Balance -294 1110 - Medications Medications: Current Medications Acetaminophen (Tylenol 650mg/20.3ml Solution Ud) 650 mg PO Q6 PRN PRN Reason: Temperature Aspirin (Aspirin Chewable) 81 mg PO DAILY [facility] Last Admin: 10/19/17 08:47 Dose: 81 mg Atorvastatin Calcium (Lipitor) 20 mg PO HS [facility] Last Admin: 10/18/17 21:08 Dose: 20 mg Cholecalciferol (Vitamin D) 2,000 intlu PO DAILY [facility] Last Admin: 10/19/17 10:25 Dose: 2,000 intlu Digoxin (Lanoxin) 0.25 mg PO DAILY [facility] Last Admin: 10/19/17 08:47 Dose: 0.25 mg Docusate Sodium (Colace) 100 mg PO BID PRN PRN Reason: Constipation Furosemide (Lasix) 40 mg IVP DAILY [facility] Last Admin: 10/19/17 08:48 Dose: 40 mg Vancomycin HCl 1 gm/ Sodium (Chloride) 250 mls @ 166.667 mls/hr IVPB Q12 [facility] PRN Reason: Protocol Last Admin: 10/19/17 08:49 Dose: 166.667 mls/hr Piperacillin Sod/Tazobactam (Sod 3.375 gm/ Sodium Chloride) 100 mls @ 100 mls/ hr IVPB Q6 [facility] PRN Reason: Protocol Last Admin: 10/19/17 10:24 Dose: 100 mls/hr Multivitamins/Minerals (Therapeutic-M Tab) 1 tab PO DAILY [facility] Last Admin: 10/19/17 08:48 Dose: 1 tab Nitroglycerin (Nitro-Bid 2% Oint) 1 ea TOP Q6 [facility] Last Admin: 10/19/17 10:23 Dose: 1 ea Sitagliptin Phosphate (Januvia) 25 mg PO DAILY [facility] Last Admin: 10/18/17 09:22 Dose: 25 mg - Labs Labs: 10/19/17 04:40 10/19/17 04:40 PT 20.7 Seconds (9.8-13.1) H D 10/18/17 04:45 INR 1.8 10/18/17 04:45 APTT 27.6 Seconds (25.6-37.1) 10/18/17 04:45 Assessment and Plan (1) Acute respiratory failure with hypercapnia Status: Acute (2) CO2 narcosis Status: Acute (3) Compressive atelectasis Status: Acute (4) Elevated troponin Status: Acute (5) Prothrombin time increased due to coumadin Status: Acute (6) Pleural effusion Status: Acute (7) CHF (congestive heart failure) Status: Acute (8) Paroxysmal atrial fibrillation Status: Chronic (9) HTN (hypertension) Status: Acute Attending/Attestation - Attestation I have personally seen and examined this patient.: Yes I have fully participated in the care of the patient.: Yes I have reviewed all pertinent clinical information, including history, physical exam and plan: Yes
--- NOTE | 2017-10-19 14:24 | CP.PCM.CON ---
History of Present Illness - History of Present Illness History of Present Illness: Asked to evaluate this 86-year-old female because of bilateral pleural effusions. She had presented to the emergency department on the sixth of this month with a complaint of progressive shortness of breath which had been present for 2 days prior. She denied any chest pain, cough or hemoptysis. She denied fever but may have had an episode of chills. She had been planing of inability to lie flat bed during that period of time as well. She has never had symptoms similar to this in the past. She had also been complaining of some dizziness and difficulty ambulating in the recent past as well. She is a former cigarette smoker who has discontinued her habit more than 20 years ago. She denies any prior history of pneumonia or asthma, but does have a history of rheumatic fever with valvular heart disease and pulmonary hypertension. On examination she was found to have bilateral pleural effusions which were more right than left and moderate in volume. She was found also to have hypercapnic respiratory failure and was treated initially with noninvasive positive pressure ventilation. She ultimately required endotracheal intubation to stabilize her respiratory status thoracentesis could safely be performed. Thoracentesis did return approximately 1.2 L of fluid which appears transudative on examination by LDH parameters. A follow-up chest x-ray has shown some unilateral interstitial type infiltrates in the right lung which may in retrospect represent reexpansion pulmonary edema. The lung did not fully reexpand and a small hydropneumothorax was present so a small drainage catheter was reinserted into the chest and is presently in place draining serous fluid. At the present time she does appear comfortable and answers all questions appropriately. She claims to feel somewhat improved and has been able to remain on oxygen via nasal cannula since this morning. Past Patient History - Tetanus Immunizations Tetanus Immunization: Unknown - Past Medical History & Family History Past Medical History?: Yes - Past Social History Smoking Status: Former Smoker Chewing Tobacco Use: No Cigar Use: No Alcohol: None Drugs: Denies - CARDIAC Hx Atrial Fibrillation: Yes (on Warfarin 3mg PO daily) Hx Congestive Heart Failure: Yes Hx Heart Murmur: Yes Hx Hypertension: Yes - PULMONARY Hx Respiratory Disorders: No - NEUROLOGICAL HX Cerebrovascular Accident: Yes (intracerebral bleed) - HEENT Hx Cataracts: Yes - RENAL Hx Chronic Kidney Disease: No - ENDOCRINE/METABOLIC Hx Diabetes Mellitus Type 2: Yes - HEMATOLOGICAL/ONCOLOGICAL Hx Blood Disorders: No Hx Human Immunodeficiency Virus (HIV): No - INTEGUMENTARY Hx Dermatological Problems: No - MUSCULOSKELETAL/RHEUMATOLOGICAL Hx Musculoskeletal Disorders: No Hx Falls: No - GASTROINTESTINAL Hx Gastrointestinal Disorders: No - GENITOURINARY/GYNECOLOGICAL Hx Genitourinary Disorders: No - PSYCHIATRIC Hx Psychophysiologic Disorder: No Hx Substance Use: No - SURGICAL HISTORY Hx Surgeries: Yes Hx Cataract Extraction: Yes - ANESTHESIA Hx Anesthesia: Yes Hx Anesthesia Reactions: No Meds Allergies/Adverse Reactions: Allergies Allergy/AdvReac Type Severity Reaction Status Date / Time No Known Allergies Allergy Verified 10/15/17 14:04 - Medications Medications: Current Medications Acetaminophen (Tylenol 650mg/20.3ml Solution Ud) 650 mg PO Q6 PRN PRN Reason: Temperature Aspirin (Aspirin Chewable) 81 mg PO DAILY [facility] Last Admin: 10/19/17 08:47 Dose: 81 mg Atorvastatin Calcium (Lipitor) 20 mg PO HS [facility] Last Admin: 10/18/17 21:08 Dose: 20 mg Cholecalciferol (Vitamin D) 2,000 intlu PO DAILY [facility] Last Admin: 10/19/17 10:25 Dose: 2,000 intlu Digoxin (Lanoxin) 0.25 mg PO DAILY [facility] Last Admin: 10/19/17 08:47 Dose: 0.25 mg Docusate Sodium (Colace) 100 mg PO BID PRN PRN Reason: Constipation Furosemide (Lasix) 40 mg IVP DAILY [facility] Last Admin: 10/19/17 08:48 Dose: 40 mg Vancomycin HCl 1 gm/ Sodium (Chloride) 250 mls @ 166.667 mls/hr IVPB Q12 [facility] PRN Reason: Protocol Last Admin: 10/19/17 08:49 Dose: 166.667 mls/hr Piperacillin Sod/Tazobactam (Sod 3.375 gm/ Sodium Chloride) 100 mls @ 100 mls/ hr IVPB Q6 [facility] PRN Reason: Protocol Last Admin: 10/19/17 10:24 Dose: 100 mls/hr Multivitamins/Minerals (Therapeutic-M Tab) 1 tab PO DAILY [facility] Last Admin: 10/19/17 08:48 Dose: 1 tab Nitroglycerin (Nitro-Bid 2% Oint) 1 ea TOP Q6 [facility] Last Admin: 10/19/17 10:23 Dose: 1 ea Sitagliptin Phosphate (Januvia) 25 mg PO DAILY [facility] Last Admin: 10/18/17 09:22 Dose: 25 mg Physical Exam - Additional Findings Additional findings: Thin, elderly female who is awake and alert and in no acute distress. Her memory appears intact and she answers all questions appropriately. Her neck is supple and trachea is midline. No carotid bruit. No neck vein distention. Conjunctivae are pink and there is no scleral icterus. Pharynx is pink and there is no exudate. Nares are patent bilaterally. No bleeding or exudate. There is no dullness to percussion anteriorly on either hemithorax. No subcutaneous emphysema. A small caliber drainage catheter is placed in the right posterolateral axillary line with serous fluid draining. A Pleur-evac is at the bedside approximate 1 L of serosanguineous fluid. Breath sounds are diminished bilaterally without any audible wheezing. Few scattered rhonchi are heard bilaterally. Occasional dry rales are heard in the lower lobes. No bronchial breathing or egophony. Heart sounds are well heard the rhythm is regular. A systolic ejection murmur is heard at the base as well as a systolic murmur at the apex. Abdomen is soft and nontender with normal bowel sounds. No dependent edema of the lower extremities. No cyanosis. No calf tenderness or palpable venous cords. No clubbing. No ecchymosis or rash. Results - Vital Signs Recent Vital Signs: Last Vital Signs Temp 98.3 F 10/19/17 12:00 Pulse 76 10/19/17 13:57 Resp 20 10/19/17 13:57 BP 115/50 L 10/19/17 13:57 Pulse Ox 95 10/19/17 13:57 - Labs Result Diagrams: 10/21/17 04:20 10/21/17 04:20 Labs: Laboratory Results - last 24 hr 10/18/17 10/18/17 10/19/17 16:38 21:14 03:52 WBC RBC Hgb Hct MCV MCH MCHC RDW Plt Count pCO2 66 H pO2 190 H HCO3 36.7 H ABG pH 7.41 ABG Total CO2 43.8 H ABG O2 Saturation 100.4 H ABG O2 Content 12.8 L ABG Base Excess 15.0 H ABG Hemoglobin 9.0 L ABG Carboxyhemoglobin 1.3 POC ABG HHb (Measured) -0.4 L ABG Methemoglobin 1.3 ABG O2 Capacity 12.7 L Tucker Test Yes A-a O2 Difference 441.0 Hgb O2 Saturation 97.7 Vent Mode Bipap Mechanical Rate 20 FiO2 100.0 Inspiratory BiPAP 18 Expiratory BiPAP 10 Sodium Potassium Chloride Carbon Dioxide Anion Gap BUN Creatinine Est GFR ( Amer) Est GFR (Non-Af Amer) POC Glucose (mg/dL) 168 H 132 H Random Glucose Calcium Total Bilirubin AST ALT Alkaline Phosphatase Total Protein Albumin Globulin Albumin/Globulin Ratio 10/19/17 10/19/17 10/19/17 04:40 04:40 04:47 WBC 10.8 RBC 3.46 L Hgb 9.1 L Hct 28.7 L MCV 83.1 MCH 26.4 L MCHC 31.8 L RDW 17.6 H Plt Count 178 pCO2 pO2 HCO3 ABG pH ABG Total CO2 ABG O2 Saturation ABG O2 Content ABG Base Excess ABG Hemoglobin ABG Carboxyhemoglobin POC ABG HHb (Measured) ABG Methemoglobin ABG O2 Capacity Tucker Test A-a O2 Difference Hgb O2 Saturation Vent Mode Mechanical Rate FiO2 Inspiratory BiPAP Expiratory BiPAP Sodium 145 Potassium 4.4 Chloride 98 Carbon Dioxide 39 H Anion Gap 12 BUN 26 H Creatinine 0.9 Est GFR ( Amer) > 60 Est GFR (Non-Af Amer) 60 POC Glucose (mg/dL) 90 Random Glucose 96 Calcium 9.2 Total Bilirubin 1.1 AST 25 ALT 31 Alkaline Phosphatase 44 Total Protein 6.4 Albumin 3.4 L Globulin 3.0 Albumin/Globulin Ratio 1.1 10/19/17 11:39 WBC RBC Hgb Hct MCV MCH MCHC RDW Plt Count pCO2 pO2 HCO3 ABG pH ABG Total CO2 ABG O2 Saturation ABG O2 Content ABG Base Excess ABG Hemoglobin ABG Carboxyhemoglobin POC ABG HHb (Measured) ABG Methemoglobin ABG O2 Capacity Tucker Test A-a O2 Difference Hgb O2 Saturation Vent Mode Mechanical Rate FiO2 Inspiratory BiPAP Expiratory BiPAP Sodium Potassium Chloride Carbon Dioxide Anion Gap BUN Creatinine Est GFR ( Amer) Est GFR (Non-Af Amer) POC Glucose (mg/dL) 125 H Random Glucose Calcium Total Bilirubin AST ALT Alkaline Phosphatase Total Protein Albumin Globulin Albumin/Globulin Ratio Assessment & Plan (1) Bilateral pleural effusion Status: Acute Priority: High (2) Pulmonary hypertension Status: Chronic Priority: High (3) Acute respiratory failure with hypercapnia Status: Acute Priority: High Comment: Appears to be acute on chronic. - Assessment and Plan (Free Text) Plan: The current chest catheter continues to have serosanguineous drainage. The patient is not in any acute distress at the present time and the left-sided effusion can be observed. Follow-up CT scan may be performed in the morning and the right-sided catheter removed afterwards if the effusion has resolved. - Date & Time Date: 10/19/17 Time: 14:36
[2017-10-19] MEDS ORDERED: Acetaminophen 650mg/20.3ml solution UD PO PRN (23:26)
[2017-10-20] MEDS: Piperacillin/Tazobact 3.375 GM in Sodium Chloride 0.9% 100 ML IVPB SCH ×2 (04:00→21:19)
[2017-10-20] MEDS: Nitroglycerin 2% Ointment Foilpak UD TOP SCH ×4 (05:00→21:05)
[2017-10-20 06:00] LABS: ABG ALLEN TEST YES; ARTERIAL BLOOD GAS HCO3 37.8 mmol/L (21-28); ARTERIAL BLOOD GAS HEMOGLOBIN 8.6 g/dL (11.7-17.4); ARTERIAL BLOOD GAS O2 CAPACITY 11.7 mL/dL (16-24); ARTERIAL BLOOD GAS O2 CONTENT 11.4 ML/dL (15-23); ARTERIAL BLOOD GAS O2 SAT 97.1 % (95-98); ARTERIAL BLOOD GAS PCO2 83 mm/Hg (35-45); ARTERIAL BLOOD GAS PH 7.34 (7.35-7.45); ARTERIAL BLOOD GAS PO2 71 mm/Hg (80-100); ARTERIAL BLOOD GAS TCO2 47.3 mmol/L (22-28)
[2017-10-20 06:42] LABS: BASO % 0.4 % (0.0-2.0); EOS % 0.5 % (0.0-4.0); HEMOGLOBIN 8.4 g/dL (12.0-16.0); LYMPH # 0.5 K/uL (1.0-4.3); LYMPH % 5.4 % (20.0-40.0); MEAN CELL VOLUME 83.4 fl (81.0-99.0); MEAN CORPUSCULAR HEMOGLOBIN 25.8 pg (27.0-31.0); MEAN PLATELET VOLUME 8.2 fl (7.2-11.7); MONO # 1.1 K/uL (0.0-0.8); MONO % 12.7 % (0.0-10.0); PLATELET COUNT 160 K/uL (130-400); RBC 3.26 Mil/uL (3.80-5.20); RED CELL DISTRIBUTION WIDTH 17.4 % (11.5-14.5); WHITE BLOOD COUNT 8.6 K/uL (4.8-10.8)
[2017-10-20 06:48] LABS: INR 1.7
[2017-10-20 07:03] LABS: ALBUMIN 3.1 g/dL (3.5-5.0); ALT/SGPT 31 U/L (9-52); AST/SGOT 19 U/L (14-36); BLOOD UREA NITROGEN 22 mg/dl (7-17); CALCIUM 9.1 mg/dL (8.4-10.2); GFR AFRICAN-AMERICAN > 60; GFR NON-AFRICAN AMERICAN > 60
[2017-10-20 08:28] LABS: ANISOCYTOSIS SLIGHT; BANDS 1 % (0-2); EOSINOPHIL 1 % (0-7); LYMPHOCYTE 5 % (20-50); MONOCYTE 8 % (0-10); MYELOCYTE 2 % (0-0); NEUTROPHIL 83 % (42-75); PLATELET ESTIMATE NORMAL (NORMAL); POIKILOCYTOSIS SLIGHT; TOTAL CELLS COUNTED 100
[2017-10-20 08:29] LABS: HYPOCHROMIC SLIGHT; LARGE PLATELETS PRESENT; OVALOCYTES SLIGHT; TARGET CELLS MODERATE
[2017-10-20] MEDS: Digoxin 250 mcg (0.25 mg) Tab PO SCH (09:10)
[2017-10-20] MEDS: Multivitamin With Minerals Tab PO SCH (09:12)
[2017-10-20] MEDS: Cholecalciferol 1,000 INTLU TAB PO SCH (09:13)
--- NOTE | 2017-10-20 10:09 | CP.CCUPN ---
CCU Subjective - Physician Review Events Since Last Encounter (Free Text): 10/20/17 10:00 alert and oriented, ABG still showing hypercapnea but pt is asymptomatic, CCU Objective - Vital Signs / Intake & Output Vital Signs (Last 4 hours): Vital Signs Temp Pulse Resp BP Pulse Ox 10/20/17 09:11 76 125/52 L 10/20/17 07:46 98.0 F 76 15 125/52 L 100 10/20/17 06:11 78 P/E Neck: No JVd Lungs: no ronchi, crackles, decreased BS rt base Heart: No gallop Abdomen: no tenderness, soft Ext; No edema Intake and Output (Last 8hrs): Intake & Output 10/19/17 10/20/17 10/20/17 22:59 06:59 14:59 Intake Total 750 139 120 Output Total 1500 720 Balance -750 -581 120 Weight 99 lb 1.6 oz Intake: IV 10 14 Intake, Piggyback 450 100 Oral 290 25 120 Output: Chest Tube Drainage 500 270 Right Mid-Axillary Chest 500 270 Urine 1000 450 Urethral (Lama) 1000 450 - Medications Active Medications: Active Medications Generic Name Dose Route Start Last Admin Trade Name Freq PRN Reason Stop Dose Admin Acetaminophen 650 mg 10/17/17 13:44 Tylenol 650mg/20.3ml Solution Ud PO Q6 PRN Temperature Acetaminophen 650 mg 10/19/17 23:26 10/19/17 23:15 Tylenol 650mg/20.3ml Solution Ud PO 650 mg Q6 PRN Administration Pain, moderate (4-7) Aspirin 81 mg 10/17/17 09:00 10/20/17 09:09 Aspirin Chewable PO 81 mg DAILY NICOLE Administration Atorvastatin Calcium 20 mg 10/15/17 22:00 10/19/17 21:00 Lipitor PO 20 mg HS NICOLE Administration Cholecalciferol 2,000 intlu 10/16/17 09:00 10/20/17 09:13 Vitamin D PO 2,000 intlu DAILY NICOLE Administration Digoxin 0.25 mg 10/17/17 09:00 10/20/17 09:10 Lanoxin PO 0.25 mg DAILY NICOLE Administration Docusate Sodium 100 mg 10/15/17 17:50 Colace PO BID PRN Constipation Furosemide 40 mg 10/17/17 09:00 10/20/17 09:11 Lasix IVP 40 mg DAILY NICOLE Administration Multivitamins/Minerals 1 tab 10/16/17 09:00 10/20/17 09:12 Therapeutic-M Tab PO 1 tab DAILY NICOLE Administration Nitroglycerin 1 ea 10/16/17 16:30 10/20/17 09:11 Nitro-Bid 2% Oint TOP 1 ea Q6 NICOLE Administration Sitagliptin Phosphate 25 mg 10/16/17 09:00 10/18/17 09:22 Januvia PO 25 mg DAILY NICOLE Administration - Patient Studies Lab Studies: Microbiology Studies 10/15/17 14:45 Blood Culture - Preliminary Blood-Venous NO GROWTH AFTER 4 DAYS 10/15/17 14:50 S.aureus & Coag-Neg Staph PNA FISH - Final Blood-Venous Blood Culture - Final Coagulase Neg Staphylococcus Gram Stain - Final 10/17/17 06:23 MRSA Culture (Admit) - Final Naris MRSA NOT DETECTED 10/17/17 14:57 Gram Stain - Final Body Fluid - Lung-Left Body Fluid Culture - Preliminary NO GROWTH AFTER 2 DAYS Lab Studies 10/20/17 10/20/17 10/20/17 Range/Units 05:54 05:25 05:25 WBC 8.6 (4.8-10.8) K/uL RBC 3.26 L (3.80-5.20) Mil/uL Hgb 8.4 L (12.0-16.0) g/dL Hct 27.2 L (34.0-47.0) % MCV 83.4 (81.0-99.0) fl MCH 25.8 L (27.0-31.0) pg MCHC 31.0 L (33.0-37.0) g/dL RDW 17.4 H (11.5-14.5) % Plt Count 160 (130-400) K/uL MPV 8.2 (7.2-11.7) fl Neut % (Auto) 81.0 H (50.0-75.0) % Lymph % (Auto) 5.4 L (20.0-40.0) % Burnett % (Auto) 12.7 H (0.0-10.0) % Eos % (Auto) 0.5 (0.0-4.0) % Baso % (Auto) 0.4 (0.0-2.0) % Neut # (Auto) 7.0 (1.8-7.0) K/uL Lymph # (Auto) 0.5 L (1.0-4.3) K/uL Burnett # (Auto) 1.1 H (0.0-0.8) K/uL Eos # (Auto) 0.0 (0.0-0.7) K/uL Baso # (Auto) 0.0 (0.0-0.2) K/uL Neutrophils % (Manual) 83 H (42-75) % Band Neutrophils % 1 (0-2) % Lymphocytes % (Manual) 5 L (20-50) % Monocytes % (Manual) 8 (0-10) % Eosinophils % (Manual) 1 (0-7) % Myelocytes % 2 H (0-0) % Platelet Estimate Normal (NORMAL) Large Platelets Present Hypochromasia (manual) Slight Poikilocytosis (manual Slight Anisocytosis (manual) Slight Target Cells Moderate Ovalocytes Slight PT 19.0 H (9.8-13.1) Seconds INR 1.7 pCO2 83 H* (35-45) mm/Hg pO2 71 L (80-100) mm/Hg HCO3 37.8 H (21-28) mmol/L ABG pH 7.34 L (7.35-7.45) ABG Total CO2 47.3 H (22-28) mmol/L ABG O2 Saturation 97.1 (95-98) % ABG O2 Content 11.4 L (15-23) ML/dL ABG Base Excess 16.5 H (-2.0-3.0) mmol/L ABG Hemoglobin 8.6 L (11.7-17.4) g/dL ABG Carboxyhemoglobin 2.3 H (0.5-1.5) % POC ABG HHb (Measured) 2.8 (0.0-5.0) % ABG Methemoglobin 1.3 (0.0-3.0) % ABG O2 Capacity 11.7 L (16-24) mL/dL Tucker Test Yes A-a O2 Difference 82.0 mm/Hg Hgb O2 Saturation 93.6 L (95.0-98.0) % FiO2 36.0 % Crit Value Called To Amish conley Crit Value Called By Bubba Crit Value Read Back Y Blood Gas Notified Time 600 Sodium (132-148) mmol/l Potassium (3.6-5.0) MMOL/L Chloride (98-107) mmol/L Carbon Dioxide (22-30) mmol/L Anion Gap (10-20) BUN (7-17) mg/dl Creatinine (0.7-1.2) mg/dl Est GFR ( Amer) Est GFR (Non-Af Amer) POC Glucose (mg/dL) (65-110) mg/dL Random Glucose (65-105) mg/dL Calcium (8.4-10.2) mg/dL Phosphorus (2.5-4.5) mg/dl Magnesium (1.6-2.3) MG/DL Total Bilirubin (0.2-1.3) mg/dl AST (14-36) U/L ALT (9-52) U/L Alkaline Phosphatase (38-126) U/L Total Protein (6.3-8.2) G/DL Albumin (3.5-5.0) g/dL Globulin (2.2-3.9) gm/dL Albumin/Globulin Ratio (1.0-2.1) 10/20/17 10/19/17 10/19/17 Range/Units 05:25 16:02 11:39 WBC (4.8-10.8) K/uL RBC (3.80-5.20) Mil/uL Hgb (12.0-16.0) g/dL Hct (34.0-47.0) % MCV (81.0-99.0) fl MCH (27.0-31.0) pg MCHC (33.0-37.0) g/dL RDW (11.5-14.5) % Plt Count (130-400) K/uL MPV (7.2-11.7) fl Neut % (Auto) (50.0-75.0) % Lymph % (Auto) (20.0-40.0) % Burnett % (Auto) (0.0-10.0) % Eos % (Auto) (0.0-4.0) % Baso % (Auto) (0.0-2.0) % Neut # (Auto) (1.8-7.0) K/uL Lymph # (Auto) (1.0-4.3) K/uL Burnett # (Auto) (0.0-0.8) K/uL Eos # (Auto) (0.0-0.7) K/uL Baso # (Auto) (0.0-0.2) K/uL Neutrophils % (Manual) (42-75) % Band Neutrophils % (0-2) % Lymphocytes % (Manual) (20-50) % Monocytes % (Manual) (0-10) % Eosinophils % (Manual) (0-7) % Myelocytes % (0-0) % Platelet Estimate (NORMAL) Large Platelets Hypochromasia (manual) Poikilocytosis (manual Anisocytosis (manual) Target Cells Ovalocytes PT (9.8-13.1) Seconds INR pCO2 (35-45) mm/Hg pO2 (80-100) mm/Hg HCO3 (21-28) mmol/L ABG pH (7.35-7.45) ABG Total CO2 (22-28) mmol/L ABG O2 Saturation (95-98) % ABG O2 Content (15-23) ML/dL ABG Base Excess (-2.0-3.0) mmol/L ABG Hemoglobin (11.7-17.4) g/dL ABG Carboxyhemoglobin (0.5-1.5) % POC ABG HHb (Measured) (0.0-5.0) % ABG Methemoglobin (0.0-3.0) % ABG O2 Capacity (16-24) mL/dL Tucker Test A-a O2 Difference mm/Hg Hgb O2 Saturation (95.0-98.0) % FiO2 % Crit Value Called To Crit Value Called By Crit Value Read Back Blood Gas Notified Time Sodium 142 (132-148) mmol/l Potassium 4.2 (3.6-5.0) MMOL/L Chloride 98 (98-107) mmol/L Carbon Dioxide 39 H (22-30) mmol/L Anion Gap 9 L (10-20) BUN 22 H (7-17) mg/dl Creatinine 0.6 L (0.7-1.2) mg/dl Est GFR ( Amer) > 60 Est GFR (Non-Af Amer) > 60 POC Glucose (mg/dL) 163 H 125 H (65-110) mg/dL Random Glucose 102 (65-105) mg/dL Calcium 9.1 (8.4-10.2) mg/dL Phosphorus 2.4 L (2.5-4.5) mg/dl Magnesium 1.9 (1.6-2.3) MG/DL Total Bilirubin 0.9 (0.2-1.3) mg/dl AST 19 (14-36) U/L ALT 31 (9-52) U/L Alkaline Phosphatase 47 (38-126) U/L Total Protein 6.0 L (6.3-8.2) G/DL Albumin 3.1 L (3.5-5.0) g/dL Globulin 3.0 (2.2-3.9) gm/dL Albumin/Globulin Ratio 1.0 (1.0-2.1) 10/19/17 Range/Units 04:47 WBC (4.8-10.8) K/uL RBC (3.80-5.20) Mil/uL Hgb (12.0-16.0) g/dL Hct (34.0-47.0) % MCV (81.0-99.0) fl MCH (27.0-31.0) pg MCHC (33.0-37.0) g/dL RDW (11.5-14.5) % Plt Count (130-400) K/uL MPV (7.2-11.7) fl Neut % (Auto) (50.0-75.0) % Lymph % (Auto) (20.0-40.0) % Burnett % (Auto) (0.0-10.0) % Eos % (Auto) (0.0-4.0) % Baso % (Auto) (0.0-2.0) % Neut # (Auto) (1.8-7.0) K/uL Lymph # (Auto) (1.0-4.3) K/uL Burnett # (Auto) (0.0-0.8) K/uL Eos # (Auto) (0.0-0.7) K/uL Baso # (Auto) (0.0-0.2) K/uL Neutrophils % (Manual) (42-75) % Band Neutrophils % (0-2) % Lymphocytes % (Manual) (20-50) % Monocytes % (Manual) (0-10) % Eosinophils % (Manual) (0-7) % Myelocytes % (0-0) % Platelet Estimate (NORMAL) Large Platelets Hypochromasia (manual) Poikilocytosis (manual Anisocytosis (manual) Target Cells Ovalocytes PT (9.8-13.1) Seconds INR pCO2 (35-45) mm/Hg pO2 (80-100) mm/Hg HCO3 (21-28) mmol/L ABG pH (7.35-7.45) ABG Total CO2 (22-28) mmol/L ABG O2 Saturation (95-98) % ABG O2 Content (15-23) ML/dL ABG Base Excess (-2.0-3.0) mmol/L ABG Hemoglobin (11.7-17.4) g/dL ABG Carboxyhemoglobin (0.5-1.5) % POC ABG HHb (Measured) (0.0-5.0) % ABG Methemoglobin (0.0-3.0) % ABG O2 Capacity (16-24) mL/dL Tucker Test A-a O2 Difference mm/Hg Hgb O2 Saturation (95.0-98.0) % FiO2 % Crit Value Called To Crit Value Called By Crit Value Read Back Blood Gas Notified Time Sodium (132-148) mmol/l Potassium (3.6-5.0) MMOL/L Chloride (98-107) mmol/L Carbon Dioxide (22-30) mmol/L Anion Gap (10-20) BUN (7-17) mg/dl Creatinine (0.7-1.2) mg/dl Est GFR ( Amer) Est GFR (Non-Af Amer) POC Glucose (mg/dL) 90 (65-110) mg/dL Random Glucose (65-105) mg/dL Calcium (8.4-10.2) mg/dL Phosphorus (2.5-4.5) mg/dl Magnesium (1.6-2.3) MG/DL Total Bilirubin (0.2-1.3) mg/dl AST (14-36) U/L ALT (9-52) U/L Alkaline Phosphatase (38-126) U/L Total Protein (6.3-8.2) G/DL Albumin (3.5-5.0) g/dL Globulin (2.2-3.9) gm/dL Albumin/Globulin Ratio (1.0-2.1) Laboratory Results - last 24 hr 10/19/17 10/19/17 10/19/17 04:47 11:39 16:02 WBC RBC Hgb Hct MCV MCH MCHC RDW Plt Count MPV Neut % (Auto) Lymph % (Auto) Burnett % (Auto) Eos % (Auto) Baso % (Auto) Neut # (Auto) Lymph # (Auto) Burnett # (Auto) Eos # (Auto) Baso # (Auto) Neutrophils % (Manual) Band Neutrophils % Lymphocytes % (Manual) Monocytes % (Manual) Eosinophils % (Manual) Myelocytes % Platelet Estimate Large Platelets Hypochromasia (manual) Poikilocytosis (manual Anisocytosis (manual) Target Cells Ovalocytes PT INR pCO2 pO2 HCO3 ABG pH ABG Total CO2 ABG O2 Saturation ABG O2 Content ABG Base Excess ABG Hemoglobin ABG Carboxyhemoglobin POC ABG HHb (Measured) ABG Methemoglobin ABG O2 Capacity Tucker Test A-a O2 Difference Hgb O2 Saturation FiO2 Crit Value Called To Crit Value Called By Crit Value Read Back Blood Gas Notified Time Sodium Potassium Chloride Carbon Dioxide Anion Gap BUN Creatinine Est GFR ( Amer) Est GFR (Non-Af Amer) POC Glucose (mg/dL) 90 125 H 163 H Random Glucose Calcium Phosphorus Magnesium Total Bilirubin AST ALT Alkaline Phosphatase Total Protein Albumin Globulin Albumin/Globulin Ratio 10/20/17 10/20/17 10/20/17 05:25 05:25 05:25 WBC 8.6 RBC 3.26 L Hgb 8.4 L Hct 27.2 L MCV 83.4 MCH 25.8 L MCHC 31.0 L RDW 17.4 H Plt Count 160 MPV 8.2 Neut % (Auto) 81.0 H Lymph % (Auto) 5.4 L Burnett % (Auto) 12.7 H Eos % (Auto) 0.5 Baso % (Auto) 0.4 Neut # (Auto) 7.0 Lymph # (Auto) 0.5 L Burnett # (Auto) 1.1 H Eos # (Auto) 0.0 Baso # (Auto) 0.0 Neutrophils % (Manual) 83 H Band Neutrophils % 1 Lymphocytes % (Manual) 5 L Monocytes % (Manual) 8 Eosinophils % (Manual) 1 Myelocytes % 2 H Platelet Estimate Normal Large Platelets Present Hypochromasia (manual) Slight Poikilocytosis (manual Slight Anisocytosis (manual) Slight Target Cells Moderate Ovalocytes Slight PT 19.0 H INR 1.7 pCO2 pO2 HCO3 ABG pH ABG Total CO2 ABG O2 Saturation ABG O2 Content ABG Base Excess ABG Hemoglobin ABG Carboxyhemoglobin POC ABG HHb (Measured) ABG Methemoglobin ABG O2 Capacity Tucker Test A-a O2 Difference Hgb O2 Saturation FiO2 Crit Value Called To Crit Value Called By Crit Value Read Back Blood Gas Notified Time Sodium 142 Potassium 4.2 Chloride 98 Carbon Dioxide 39 H Anion Gap 9 L BUN 22 H Creatinine 0.6 L Est GFR ( Amer) > 60 Est GFR (Non-Af Amer) > 60 POC Glucose (mg/dL) Random Glucose 102 Calcium 9.1 Phosphorus 2.4 L Magnesium 1.9 Total Bilirubin 0.9 AST 19 ALT 31 Alkaline Phosphatase 47 Total Protein 6.0 L Albumin 3.1 L Globulin 3.0 Albumin/Globulin Ratio 1.0 10/20/17 05:54 WBC RBC Hgb Hct MCV MCH MCHC RDW Plt Count MPV Neut % (Auto) Lymph % (Auto) Burnett % (Auto) Eos % (Auto) Baso % (Auto) Neut # (Auto) Lymph # (Auto) Burnett # (Auto) Eos # (Auto) Baso # (Auto) Neutrophils % (Manual) Band Neutrophils % Lymphocytes % (Manual) Monocytes % (Manual) Eosinophils % (Manual) Myelocytes % Platelet Estimate Large Platelets Hypochromasia (manual) Poikilocytosis (manual Anisocytosis (manual) Target Cells Ovalocytes PT INR pCO2 83 H* pO2 71 L HCO3 37.8 H ABG pH 7.34 L ABG Total CO2 47.3 H ABG O2 Saturation 97.1 ABG O2 Content 11.4 L ABG Base Excess 16.5 H ABG Hemoglobin 8.6 L ABG Carboxyhemoglobin 2.3 H POC ABG HHb (Measured) 2.8 ABG Methemoglobin 1.3 ABG O2 Capacity 11.7 L Tucker Test Yes A-a O2 Difference 82.0 Hgb O2 Saturation 93.6 L FiO2 36.0 Crit Value Called To Amish conley Crit Value Called By 292 Crit Value Read Back Y Blood Gas Notified Time 600 Sodium Potassium Chloride Carbon Dioxide Anion Gap BUN Creatinine Est GFR ( Amer) Est GFR (Non-Af Amer) POC Glucose (mg/dL) Random Glucose Calcium Phosphorus Magnesium Total Bilirubin AST ALT Alkaline Phosphatase Total Protein Albumin Globulin Albumin/Globulin Ratio Fingerstick Blood Sugar Results: 87 Critical Care Progress Note - Nutrition Nutrition: Nutrition Category Date Time Status Heart Healthy Diet [DIET] Diets 10/18/17 Breakfast Active Assessment/Plan - Assessment and Plan (Free Text) Assessment: 1. RESP FAILURE: Acute, Hypercapneic secondary to B/L pleural effusion, Pneumonia - Extubated, off bipap, on 3 L NC now, 2. Hydropneumothorax -S/P chest tube placement, rt sided 3. Compressive Atelectasis -Continue IV Zosyn & vanco 4. Pleural Effusion l -Pleural effusion analysis indicative of transudative effusion -Continue pigtail for drainage on lasix 40 mg IV daily 8. Acute CHF exacerbation, combine systolic & dyastolic dysfunction -Will continue digoxin -On continue Lasix 9. Paroxysmal A. Fib -Will continue to hold Wafarin -Patient is currently rate controlled 10. HTN - Metoprolol as needed 11. DM Type II -Accucheck with coverage
--- NOTE | 2017-10-20 10:25 | CP.PCM.PN ---
Subjective - Date & Time of Evaluation Date of Evaluation: 10/20/17 Time of Evaluation: 09:30 - Subjective Subjective: Pt is awake , alert, oriented Was on Bipap last night but has been refusing to keep it on - changed to 3 liters per NC - saturating well on NC however still with high pCO2 at 82 on ABG No fever Pigtail in place with drainage of serosanguinous Pleural fluid ( 770ml ) Pt denies CP she states she feels comfortable ate her breakfast earlier no abd pain Objective - Vital Signs/Intake and Output Vital Signs (last 24 hours): Temp Pulse Resp BP Pulse Ox 98.0 F 76 15 125/52 L 100 10/20/17 07:46 10/20/17 09:11 10/20/17 07:46 10/20/17 09:11 10/20/17 07:46 Intake and Output: 10/20/17 10/20/17 06:59 18:59 Intake Total 549 120 Output Total 720 Balance -171 120 - Medications Medications: Current Medications Acetaminophen (Tylenol 650mg/20.3ml Solution Ud) 650 mg PO Q6 PRN PRN Reason: Temperature Acetaminophen (Tylenol 650mg/20.3ml Solution Ud) 650 mg PO Q6 PRN PRN Reason: Pain, moderate (4-7) Last Admin: 10/19/17 23:15 Dose: 650 mg Aspirin (Aspirin Chewable) 81 mg PO DAILY [facility] Last Admin: 10/20/17 09:09 Dose: 81 mg Atorvastatin Calcium (Lipitor) 20 mg PO HS [facility] Last Admin: 10/19/17 21:00 Dose: 20 mg Cholecalciferol (Vitamin D) 2,000 intlu PO DAILY [facility] Last Admin: 10/20/17 09:13 Dose: 2,000 intlu Digoxin (Lanoxin) 0.25 mg PO DAILY [facility] Last Admin: 10/20/17 09:10 Dose: 0.25 mg Docusate Sodium (Colace) 100 mg PO BID PRN PRN Reason: Constipation Furosemide (Lasix) 40 mg IVP DAILY [facility] Last Admin: 10/20/17 09:11 Dose: 40 mg Multivitamins/Minerals (Therapeutic-M Tab) 1 tab PO DAILY [facility] Last Admin: 10/20/17 09:12 Dose: 1 tab Nitroglycerin (Nitro-Bid 2% Oint) 1 ea TOP Q6 [facility] Last Admin: 10/20/17 09:11 Dose: 1 ea Sitagliptin Phosphate (Januvia) 25 mg PO DAILY [facility] Last Admin: 10/18/17 09:22 Dose: 25 mg - Labs Labs: 10/20/17 05:25 10/20/17 05:25 PT 19.0 Seconds (9.8-13.1) H 10/20/17 05:25 INR 1.7 10/20/17 05:25 APTT 27.6 Seconds (25.6-37.1) 10/18/17 04:45 - Constitutional Appears: Non-toxic, No Acute Distress, Cachectic, Chronically Ill - Head Exam Head Exam: ATRAUMATIC, NORMAL INSPECTION, NORMOCEPHALIC - Eye Exam Eye Exam: EOMI, Normal appearance Pupil Exam: NORMAL ACCOMODATION - ENT Exam ENT Exam: Mucous Membranes Moist, Normal External Ear Exam - Neck Exam Neck Exam: Full ROM. absent: Meningismus - Respiratory Exam Respiratory Exam: Rales, Rhonchi. absent: Respiratory Distress Additional comments: Right Chest : Chest tube /Pigtail connected to Pleurovac - Cardiovascular Exam Cardiovascular Exam: REGULAR RHYTHM, +S1, +S2 - GI/Abdominal Exam GI & Abdominal Exam: Soft, Normal Bowel Sounds. absent: Tenderness - Extremities Exam Extremities Exam: Full ROM, Normal Capillary Refill. absent: Calf Tenderness, Pedal Edema - Back Exam Back Exam: Full ROM. absent: CVA tenderness (L), CVA tenderness (R) - Neurological Exam Neurological Exam: Alert, Awake, Oriented x3 Neuro motor strength exam: Left Upper Extremity: 5, Right Upper Extremity: 5, Left Lower Extremity: 5, Right Lower Extremity: 5 - Psychiatric Exam Psychiatric exam: Flat Affect, Normal Mood - Skin Skin Exam: Dry, Pallor, Warm Assessment and Plan (1) Acute respiratory failure with hypercapnia Status: Acute (2) CO2 narcosis Status: Acute (3) Compressive atelectasis Status: Acute (4) Elevated troponin Status: Acute (5) Prothrombin time increased due to coumadin Status: Acute (6) Pleural effusion Status: Acute (7) CHF (congestive heart failure) Status: Acute (8) Paroxysmal atrial fibrillation Status: Chronic (9) HTN (hypertension) Status: Acute - Assessment and Plan (Free Text) Assessment: 86 y/o F with h/o CHF, pulmonary HTN, Chronic AFib & DMII who presented to ED with c/o SOB and dyspnea was found to have CHF exacerbation with B/L pleura effusion as well as minimally elevated Troponins. She was admitted to telemetry , then transferred to [facility] on 10/17 after she was found obtunded and ABG showed severe hypercapnea Pt was intubated and her mental status improved . DShe then self extubated. 1. Acute Hypercapneic Respiratory Failure secondary to B/L pleural effusion, Pneumonia & CO2 retention -Was intubated then self extubated Placed on Bipap yesterday however pt refused to keep it on - changed to O2 per NC - Pulm consulted and is following pt - CO2 still elevated but pt clinically stable 2. Acute CO2 Narcosis, improving -off Bipap now on NC 3. Hydropneumothorax post Thoracentesis -S/P chest tube placement by IR -rpt CXR : improvement 4. Compressive Atelectasis -empirically on IV Zosyn & vanco 5. Acute Elevated Troponin -Unlikely secondary to ischemia -Will continue ASA & Statin therapy 6. Prothrombin time increased due to coumadin -INR 1.7 -Will continue to hold warfarin as pt has serosanguonous drainage from CT 7. Pleural Effusion likely secondary to CHF -Pleural effusion analysis indicative of transudative effusion -Continue pigtail for drainage 8. Acute CHF exacerbation, combine systolic & diastolic dysfunction -Will continue digoxin -Will continue Lasix as needed 9. Paroxysmal A. Fib -Will continue to hold Wafarin due to sanguinous pleural fluid , INR 1.7 -Patient is currently rate controlled 10. HTN, controlled 11. DM Type II -Accucheck with coverage glucose controlled DVT proph: Pt's INR is 1.7
--- NOTE | 2017-10-20 10:30 | RAD ---
Date of service: 10/20/2017 HISTORY: chest tube COMPARISON: Chest radiograph dated 10/19/2017 FINDINGS: LUNGS: Hyperinflated lungs. Pulmonary vascular congestion with superimposed right lung infiltrates. Bibasilar atelectasis. PLEURA: Stable small bilateral pleural effusions. No appreciable pneumothorax. CARDIOVASCULAR: Atherosclerotic aortic calcifications. Cardiomediastinal silhouette stably enlarged. OSSEOUS STRUCTURES: Unchanged. VISUALIZED UPPER ABDOMEN: Normal. OTHER FINDINGS: Right basilar pigtail chest tube, unchanged. IMPRESSION: Grossly stable pulmonary vascular congestion and small bilateral pleural effusions. Right basilar pigtail chest tube, unchanged. No significant interval change.
--- NOTE | 2017-10-20 11:16 | CP.PCM.PN ---
Subjective - Date & Time of Evaluation Date of Evaluation: 10/20/17 Time of Evaluation: 11:16 - Subjective Subjective: Appears fatigued. Dislikes using BiPAP mask support. Chest x-ray appears to show what seems to be sub-pulmonic effusions bilaterally. Left drainage catheter remain in place, continues to drain serosanguinous fluid. Over 700 ml's of fluid drained in the last 24 hours. Remains afebrile, low normal SpO2. Congested cough. Appears fatigued, able to follow simple commands. No subcut emphysema on palpation of chest wall. Dullness to percussion is noted in the bases posteriorly. Diminished breath sounds bilaterally with few sonorous rhonchi. No audible wheezes or bronchial breath sounds. Will attempt to use HFNC in place of BiPAP mask support. Avoid sedative rx, maintain oxygenation >=92%. Request CT chest tomorrow to quantify effectiveness of right drainage catheter as well as amount of left effusion. Prognosis appears poor with severe valvular heart disease and pulmonary hypertension-group II.. Objective - Vital Signs/Intake and Output Vital Signs (last 24 hours): Temp Pulse Resp BP Pulse Ox 98.0 F 76 15 125/52 L 100 10/20/17 07:46 10/20/17 09:11 10/20/17 07:46 10/20/17 09:11 10/20/17 07:46 Intake and Output: 10/19/17 10/20/17 23:59 11:59 Intake Total 1090 259 Output Total 1500 720 Balance -410 -461 - Medications Medications: Current Medications Acetaminophen (Tylenol 650mg/20.3ml Solution Ud) 650 mg PO Q6 PRN PRN Reason: Temperature Acetaminophen (Tylenol 650mg/20.3ml Solution Ud) 650 mg PO Q6 PRN PRN Reason: Pain, moderate (4-7) Last Admin: 10/19/17 23:15 Dose: 650 mg Aspirin (Aspirin Chewable) 81 mg PO DAILY [facility] Last Admin: 10/20/17 09:09 Dose: 81 mg Atorvastatin Calcium (Lipitor) 20 mg PO HS [facility] Last Admin: 10/19/17 21:00 Dose: 20 mg Cholecalciferol (Vitamin D) 2,000 intlu PO DAILY [facility] Last Admin: 10/20/17 09:13 Dose: 2,000 intlu Digoxin (Lanoxin) 0.25 mg PO DAILY [facility] Last Admin: 10/20/17 09:10 Dose: 0.25 mg Docusate Sodium (Colace) 100 mg PO BID PRN PRN Reason: Constipation Furosemide (Lasix) 40 mg IVP DAILY [facility] Last Admin: 10/20/17 09:11 Dose: 40 mg Multivitamins/Minerals (Therapeutic-M Tab) 1 tab PO DAILY [facility] Last Admin: 10/20/17 09:12 Dose: 1 tab Nitroglycerin (Nitro-Bid 2% Oint) 1 ea TOP Q6 [facility] Last Admin: 10/20/17 09:11 Dose: 1 ea Sitagliptin Phosphate (Januvia) 25 mg PO DAILY [facility] Last Admin: 10/18/17 09:22 Dose: 25 mg - Labs Labs: 10/20/17 05:25 10/20/17 05:25 PT 19.0 Seconds (9.8-13.1) H 10/20/17 05:25 INR 1.7 10/20/17 05:25 APTT 27.6 Seconds (25.6-37.1) 10/18/17 04:45 Assessment and Plan (1) Bilateral pleural effusion Status: Acute (2) Pulmonary hypertension Status: Chronic (3) Acute respiratory failure with hypercapnia Status: Acute
[2017-10-21] MEDS: Piperacillin/Tazobact 3.375 GM in Sodium Chloride 0.9% 100 ML IVPB SCH ×4 (03:36→21:00)
[2017-10-21] MEDS: Nitroglycerin 2% Ointment Foilpak UD TOP SCH ×4 (03:41→22:10)
[2017-10-21 04:58] LABS: MEAN CELL VOLUME 82.6 fl (81.0-99.0); MEAN CORPUSCULAR HEMOGLOBIN 26.1 pg (27.0-31.0); MEAN CORPUSCULAR HGB CONC 31.5 g/dL (33.0-37.0); RBC 3.44 Mil/uL (3.80-5.20); RED CELL DISTRIBUTION WIDTH 17.6 % (11.5-14.5); WHITE BLOOD COUNT 9.5 K/uL (4.8-10.8)
[2017-10-21 05:07] LABS: INR 1.5; PROTHROMBIN TIME 16.5 Seconds (9.8-13.1)
[2017-10-21 05:29] LABS: ALB/GLOB RATIO 1.1 (1.0-2.1); ALBUMIN 3.3 g/dL (3.5-5.0); ALT/SGPT 24 U/L (9-52); AST/SGOT 26 U/L (14-36); BLOOD UREA NITROGEN 14 mg/dl (7-17); CALCIUM 9.3 mg/dL (8.4-10.2); GFR AFRICAN-AMERICAN > 60; GFR NON-AFRICAN AMERICAN > 60
[2017-10-21] MEDS: Digoxin 250 mcg (0.25 mg) Tab PO SCH (08:56)
[2017-10-21] MEDS: Multivitamin With Minerals Tab PO SCH (08:57)
--- NOTE | 2017-10-21 09:51 | CP.PCM.PN ---
Subjective - Date & Time of Evaluation Date of Evaluation: 10/21/17 Time of Evaluation: 09:45 - Subjective Subjective: Pt is on Bipap 08/22/15/40% Son at bedside Pt states that she feels more SOB tody compared to yesterday ABG showed better pCO2 72 Pt is afebrile refused to eat breakfast this am Objective - Vital Signs/Intake and Output Vital Signs (last 24 hours): Temp Pulse Resp BP Pulse Ox 97.8 F 91 H 21 144/67 91 L 10/21/17 08:00 10/21/17 09:01 10/21/17 08:00 10/21/17 09:01 10/21/17 08:00 Intake and Output: 10/21/17 10/21/17 06:59 18:59 Intake Total 605 100 Output Total 550 100 Balance 55 0 - Medications Medications: Current Medications Acetaminophen (Tylenol 650mg/20.3ml Solution Ud) 650 mg PO Q6 PRN PRN Reason: Temperature Acetaminophen (Tylenol 650mg/20.3ml Solution Ud) 650 mg PO Q6 PRN PRN Reason: Pain, moderate (4-7) Last Admin: 10/19/17 23:15 Dose: 650 mg Aspirin (Aspirin Chewable) 81 mg PO DAILY [facility] Last Admin: 10/21/17 08:56 Dose: 81 mg Atorvastatin Calcium (Lipitor) 20 mg PO HS [facility] Last Admin: 10/20/17 21:06 Dose: 20 mg Cholecalciferol (Vitamin D) 2,000 intlu PO DAILY [facility] Last Admin: 10/20/17 09:13 Dose: 2,000 intlu Digoxin (Lanoxin) 0.25 mg PO DAILY [facility] Last Admin: 10/21/17 08:56 Dose: 0.25 mg Docusate Sodium (Colace) 100 mg PO BID PRN PRN Reason: Constipation Furosemide (Lasix) 40 mg IVP DAILY [facility] Last Admin: 10/21/17 08:57 Dose: 40 mg Vancomycin HCl 1 gm/ Sodium (Chloride) 250 mls @ 166.667 mls/hr IVPB Q12 NICOLE PRN Reason: Protocol Last Admin: 10/21/17 08:58 Dose: 166.667 mls/hr Piperacillin Sod/Tazobactam (Sod 3.375 gm/ Sodium Chloride) 100 mls @ 100 mls/ hr IVPB Q6 NICOLE PRN Reason: Protocol Last Admin: 10/21/17 08:59 Dose: 100 mls/hr Multivitamins/Minerals (Therapeutic-M Tab) 1 tab PO DAILY [facility] Last Admin: 10/21/17 08:57 Dose: 1 tab Nitroglycerin (Nitro-Bid 2% Oint) 1 ea TOP Q6 [facility] Last Admin: 10/21/17 09:01 Dose: 1 ea Sitagliptin Phosphate (Januvia) 25 mg PO DAILY [facility] Last Admin: 10/18/17 09:22 Dose: 25 mg - Labs Labs: 10/21/17 04:20 10/21/17 04:20 PT 16.5 Seconds (9.8-13.1) H 10/21/17 04:20 INR 1.5 10/21/17 04:20 APTT 27.6 Seconds (25.6-37.1) 10/18/17 04:45 - Constitutional Appears: Non-toxic, No Acute Distress, Cachectic, Chronically Ill - Head Exam Head Exam: ATRAUMATIC, NORMAL INSPECTION, NORMOCEPHALIC - Eye Exam Eye Exam: EOMI, Normal appearance Pupil Exam: NORMAL ACCOMODATION - ENT Exam ENT Exam: Mucous Membranes Moist, Normal External Ear Exam - Neck Exam Neck Exam: Full ROM. absent: Meningismus - Respiratory Exam Respiratory Exam: Rales, Rhonchi. absent: Respiratory Distress Additional comments: Right Chest : Chest tube /Pigtail connected to Pleurovac Pt is on Bipap - Cardiovascular Exam Cardiovascular Exam: REGULAR RHYTHM, +S1, +S2 - GI/Abdominal Exam GI & Abdominal Exam: Soft, Normal Bowel Sounds. absent: Tenderness - Extremities Exam Extremities Exam: Full ROM, Normal Capillary Refill. absent: Calf Tenderness, Pedal Edema - Back Exam Back Exam: Full ROM. absent: CVA tenderness (L), CVA tenderness (R) - Neurological Exam Neurological Exam: Alert, Awake, Oriented x3 Neuro motor strength exam: Left Upper Extremity: 5, Right Upper Extremity: 5, Left Lower Extremity: 5, Right Lower Extremity: 5 - Psychiatric Exam Psychiatric exam: Flat Affect, Normal Mood - Skin Skin Exam: Dry, Pallor, Warm Assessment and Plan (1) Acute respiratory failure with hypercapnia Status: Acute (2) CO2 narcosis Status: Acute (3) Compressive atelectasis Status: Acute (4) Elevated troponin Status: Acute (5) Prothrombin time increased due to coumadin Status: Acute (6) Pleural effusion Status: Acute (7) CHF (congestive heart failure) Status: Acute (8) Paroxysmal atrial fibrillation Status: Chronic (9) HTN (hypertension) Status: Acute - Assessment and Plan (Free Text) Assessment: 86 y/o F with h/o CHF, pulmonary HTN, Chronic AFib & DMII who presented to ED with c/o SOB and dyspnea was found to have CHF exacerbation with B/L pleura effusion as well as minimally elevated Troponins. She was admitted to telemetry , then transferred to ICU on 10/17 after she was found obtunded and ABG showed severe hypercapnea Pt was intubated and her mental status improved . She then self extubated on 10/19 1. Acute Hypercapneic Respiratory Failure secondary to B/L pleural effusion, Pneumonia with severe CO2 Retention -Was intubated then self extubated - cont Bipap - rpt CXR - rpt CT of Chest - Pulm consulted and is following pt - CO2 still elevated but pt clinically stable 2. Acute CO2 Narcosis, improving -cont Bipap 3. Hydropneumothorax post Thoracentesis -S/P chest tube placement by IR -rpt CXR : improvement - Output 110 ml 4. Compressive Atelectasis -empirically on IV Zosyn & vanco 5. Acute Elevated Troponin -Unlikely secondary to ischemia -Will continue ASA & Statin therapy 6. Prothrombin time increased due to coumadin -INR 1.5 today -Will continue to hold warfarin as pt has serosanguonous drainage from CT 7. Pleural Effusion likely secondary to CHF -Pleural effusion analysis indicative of transudative effusion -Continue pigtail for drainage 8. Acute CHF exacerbation, combine systolic & diastolic dysfunction -Will continue digoxin -Will continue Lasix as needed 9. Paroxysmal A. Fib -Will continue to hold Wafarin due to sanguinous pleural fluid , INR 1.5 -Patient is currently rate controlled 10. HTN, controlled 11. DM Type II -Accucheck with coverage glucose controlled DVT proph: Pt's INR is 1.5
[2017-10-21 09:53] LABS: ABG ALLEN TEST YES; ARTERIAL BLOOD GAS HEMOGLOBIN 9.3 g/dL (11.7-17.4); ARTERIAL BLOOD GAS O2 CAPACITY 12.7 mL/dL (16-24); ARTERIAL BLOOD GAS O2 CONTENT 12.3 ML/dL (15-23); ARTERIAL BLOOD GAS O2 SAT 97.2 % (95-98); ARTERIAL BLOOD GAS PCO2 72 mm/Hg (35-45); ARTERIAL BLOOD GAS PH 7.42 (7.35-7.45); ARTERIAL BLOOD GAS PO2 72 mm/Hg (80-100); ARTERIAL BLOOD GAS TCO2 48.9 mmol/L (22-28)
--- NOTE | 2017-10-21 11:33 | RAD ---
Date of service: 10/21/2017 HISTORY: dyspnea, ff up, Chest tube in place COMPARISON: Chest radiograph dated 01/27. FINDINGS: LUNGS: Hyperinflated lungs. Pulmonary vascular congestion with superimposed right lung infiltrates. Bibasilar atelectasis. PLEURA: Stable small bilateral pleural effusions. No appreciable pneumothorax CARDIOVASCULAR: Atherosclerotic aortic calcifications. Cardiomediastinal silhouette stably enlarged. OSSEOUS STRUCTURES: Unchanged. VISUALIZED UPPER ABDOMEN: Normal. OTHER FINDINGS: Right basilar pigtail, unchanged. IMPRESSION: Grossly stable pulmonary vascular congestion and small bilateral pleural effusions. Right basilar pigtail chest tube, unchanged. No significant interval change.
--- NOTE | 2017-10-21 13:27 | CP.CCUPN ---
CCU Objective - Vital Signs / Intake & Output Vital Signs (Last 4 hours): Vital Signs Temp Pulse Resp BP Pulse Ox 10/21/17 12:00 98 F 83 21 139/62 96 10/21/17 10:00 80 20 140/64 96 Intake and Output (Last 8hrs): Intake & Output 10/20/17 10/21/17 10/21/17 22:59 06:59 14:59 Intake Total 780 195 500 Output Total 1750 550 850 Balance -970 -355 -350 Weight 101 lb 1.6 oz Intake: IV 10 20 Intake, Piggyback 350 100 350 Oral 420 75 150 Output: Chest Tube Drainage 50 100 Right Mid-Axillary Chest 50 100 Urine 1700 450 850 Urethral (Lama) 1700 450 850 Other: # Bowel Movements 1 - Medications Active Medications: Active Medications Generic Name Dose Route Start Last Admin Trade Name Freq PRN Reason Stop Dose Admin Acetaminophen 650 mg 10/17/17 13:44 Tylenol 650mg/20.3ml Solution Ud PO Q6 PRN Temperature Acetaminophen 650 mg 10/19/17 23:26 10/19/17 23:15 Tylenol 650mg/20.3ml Solution Ud PO 650 mg Q6 PRN Administration Pain, moderate (4-7) Aspirin 81 mg 10/17/17 09:00 10/21/17 08:56 Aspirin Chewable PO 81 mg DAILY NICOLE Administration Atorvastatin Calcium 20 mg 10/15/17 22:00 10/20/17 21:06 Lipitor PO 20 mg HS NICOLE Administration Cholecalciferol 2,000 intlu 10/16/17 09:00 10/20/17 09:13 Vitamin D PO 2,000 intlu DAILY NICOLE Administration Digoxin 0.25 mg 10/17/17 09:00 10/21/17 08:56 Lanoxin PO 0.25 mg DAILY NICOLE Administration Docusate Sodium 100 mg 10/15/17 17:50 Colace PO BID PRN Constipation Furosemide 40 mg 10/17/17 09:00 10/21/17 08:57 Lasix IVP 40 mg DAILY NICOLE Administration Vancomycin HCl 1 gm/ Sodium 250 mls @ 166.667 mls/hr 10/20/17 21:00 10/21/17 08:58 Chloride IVPB 166.667 mls/hr Q12 NICOLE Administration Protocol Piperacillin Sod/Tazobactam 100 mls @ 100 mls/hr 10/20/17 22:00 10/21/17 08: 59 Sod 3.375 gm/ Sodium Chloride IVPB 100 mls/hr Q6 NICOLE Administration Protocol Ipratropium [place] 0.5 mg 10/21/17 14:00 Atrovent IH RQ6 NICOLE Multivitamins/Minerals 1 tab 10/16/17 09:00 10/21/17 08:57 Therapeutic-M Tab PO 1 tab DAILY NICOLE Administration Nitroglycerin 1 ea 10/16/17 16:30 10/21/17 09:01 Nitro-Bid 2% Oint TOP 1 ea Q6 NICOLE Administration Sitagliptin Phosphate 25 mg 10/16/17 09:00 10/18/17 09:22 Januvia PO 25 mg DAILY NICOLE Administration - Patient Studies Lab Studies: Microbiology Studies 10/15/17 14:45 Blood Culture - Final Blood-Venous NO GROWTH AFTER 5 DAYS Gram Stain - Final TEST NOT PERFORMED 10/17/17 14:57 Gram Stain - Final Body Fluid - Lung-Left Body Fluid Culture - Preliminary NO GROWTH AFTER 3 DAYS Lab Studies 10/21/17 10/21/17 10/21/17 Range/Units 09:40 04:20 04:20 WBC 9.5 (4.8-10.8) K/uL RBC 3.44 L (3.80-5.20) Mil/uL Hgb 9.0 L (12.0-16.0) g/dL Hct 28.4 L (34.0-47.0) % MCV 82.6 (81.0-99.0) fl MCH 26.1 L (27.0-31.0) pg MCHC 31.5 L (33.0-37.0) g/dL RDW 17.6 H (11.5-14.5) % Plt Count 210 (130-400) K/uL PT 16.5 H (9.8-13.1) Seconds INR 1.5 pCO2 72 H* (35-45) mm/Hg pO2 72 L (80-100) mm/Hg HCO3 40.0 H (21-28) mmol/L ABG pH 7.42 (7.35-7.45) ABG Total CO2 48.9 H (22-28) mmol/L ABG O2 Saturation 97.2 (95-98) % ABG O2 Content 12.3 L (15-23) ML/dL ABG Base Excess 19.4 H (-2.0-3.0) mmol/L ABG Hemoglobin 9.3 L (11.7-17.4) g/dL ABG Carboxyhemoglobin 2.7 H (0.5-1.5) % POC ABG HHb (Measured) 2.7 (0.0-5.0) % ABG Methemoglobin 1.4 (0.0-3.0) % ABG O2 Capacity 12.7 L (16-24) mL/dL Tucker Test Yes A-a O2 Difference 123.0 mm/Hg Hgb O2 Saturation 93.2 L (95.0-98.0) % Vent Mode Bipap FiO2 40.0 % Inspiratory BiPAP 12 Expiratory BiPAP 6 Crit Value Called To Rn allyson trejo Crit Value Called By Rt Crit Value Read Back Y Blood Gas Notified Time 951 Sodium (132-148) mmol/l Potassium (3.6-5.0) MMOL/L Chloride (98-107) mmol/L Carbon Dioxide (22-30) mmol/L Anion Gap (10-20) BUN (7-17) mg/dl Creatinine (0.7-1.2) mg/dl Est GFR ( Amer) Est GFR (Non-Af Amer) Random Glucose (65-105) mg/dL Calcium (8.4-10.2) mg/dL Total Bilirubin (0.2-1.3) mg/dl AST (14-36) U/L ALT (9-52) U/L Alkaline Phosphatase (38-126) U/L Total Protein (6.3-8.2) G/DL Albumin (3.5-5.0) g/dL Globulin (2.2-3.9) gm/dL Albumin/Globulin Ratio (1.0-2.1) Fluid Albumin g/dL 10/21/17 10/17/17 Range/Units 04:20 14:57 WBC (4.8-10.8) K/uL RBC (3.80-5.20) Mil/uL Hgb (12.0-16.0) g/dL Hct (34.0-47.0) % MCV (81.0-99.0) fl MCH (27.0-31.0) pg MCHC (33.0-37.0) g/dL RDW (11.5-14.5) % Plt Count (130-400) K/uL PT (9.8-13.1) Seconds INR pCO2 (35-45) mm/Hg pO2 (80-100) mm/Hg HCO3 (21-28) mmol/L ABG pH (7.35-7.45) ABG Total CO2 (22-28) mmol/L ABG O2 Saturation (95-98) % ABG O2 Content (15-23) ML/dL ABG Base Excess (-2.0-3.0) mmol/L ABG Hemoglobin (11.7-17.4) g/dL ABG Carboxyhemoglobin (0.5-1.5) % POC ABG HHb (Measured) (0.0-5.0) % ABG Methemoglobin (0.0-3.0) % ABG O2 Capacity (16-24) mL/dL Tucker Test A-a O2 Difference mm/Hg Hgb O2 Saturation (95.0-98.0) % Vent Mode FiO2 % Inspiratory BiPAP Expiratory BiPAP Crit Value Called To Crit Value Called By Crit Value Read Back Blood Gas Notified Time Sodium 140 (132-148) mmol/l Potassium 3.6 (3.6-5.0) MMOL/L Chloride 95 L (98-107) mmol/L Carbon Dioxide 42 H* (22-30) mmol/L Anion Gap 7 L (10-20) BUN 14 (7-17) mg/dl Creatinine 0.6 L (0.7-1.2) mg/dl Est GFR ( Amer) > 60 Est GFR (Non-Af Amer) > 60 Random Glucose 122 H (65-105) mg/dL Calcium 9.3 (8.4-10.2) mg/dL Total Bilirubin 1.2 (0.2-1.3) mg/dl AST 26 (14-36) U/L ALT 24 (9-52) U/L Alkaline Phosphatase 57 (38-126) U/L Total Protein 6.4 (6.3-8.2) G/DL Albumin 3.3 L (3.5-5.0) g/dL Globulin 3.1 (2.2-3.9) gm/dL Albumin/Globulin Ratio 1.1 (1.0-2.1) Fluid Albumin 1.4 g/dL Laboratory Results - last 24 hr 10/17/17 10/21/17 10/21/17 14:57 04:20 04:20 WBC 9.5 RBC 3.44 L Hgb 9.0 L Hct 28.4 L MCV 82.6 MCH 26.1 L MCHC 31.5 L RDW 17.6 H Plt Count 210 PT INR pCO2 pO2 HCO3 ABG pH ABG Total CO2 ABG O2 Saturation ABG O2 Content ABG Base Excess ABG Hemoglobin ABG Carboxyhemoglobin POC ABG HHb (Measured) ABG Methemoglobin ABG O2 Capacity Tucker Test A-a O2 Difference Hgb O2 Saturation Vent Mode FiO2 Inspiratory BiPAP Expiratory BiPAP Crit Value Called To Crit Value Called By Crit Value Read Back Blood Gas Notified Time Sodium 140 Potassium 3.6 Chloride 95 L Carbon Dioxide 42 H* Anion Gap 7 L BUN 14 Creatinine 0.6 L Est GFR ( Amer) > 60 Est GFR (Non-Af Amer) > 60 Random Glucose 122 H Calcium 9.3 Total Bilirubin 1.2 AST 26 ALT 24 Alkaline Phosphatase 57 Total Protein 6.4 Albumin 3.3 L Globulin 3.1 Albumin/Globulin Ratio 1.1 Fluid Albumin 1.4 10/21/17 10/21/17 04:20 09:40 WBC RBC Hgb Hct MCV MCH MCHC RDW Plt Count PT 16.5 H INR 1.5 pCO2 72 H* pO2 72 L HCO3 40.0 H ABG pH 7.42 ABG Total CO2 48.9 H ABG O2 Saturation 97.2 ABG O2 Content 12.3 L ABG Base Excess 19.4 H ABG Hemoglobin 9.3 L ABG Carboxyhemoglobin 2.7 H POC ABG HHb (Measured) 2.7 ABG Methemoglobin 1.4 ABG O2 Capacity 12.7 L Tucker Test Yes A-a O2 Difference 123.0 Hgb O2 Saturation 93.2 L Vent Mode Bipap FiO2 40.0 Inspiratory BiPAP 12 Expiratory BiPAP 6 Crit Value Called To Amish trejo Crit Value Called By Rt Crit Value Read Back Y Blood Gas Notified Time 951 Sodium Potassium Chloride Carbon Dioxide Anion Gap BUN Creatinine Est GFR ( Amer) Est GFR (Non-Af Amer) Random Glucose Calcium Total Bilirubin AST ALT Alkaline Phosphatase Total Protein Albumin Globulin Albumin/Globulin Ratio Fluid Albumin Fingerstick Blood Sugar Results: 118 Critical Care Progress Note - Nutrition Nutrition: Nutrition Category Date Time Status Heart Healthy Diet [DIET] Diets 10/18/17 Breakfast Active Assessment/Plan - Assessment and Plan (Free Text) Assessment: 1. RESP FAILURE: Acute, Hypercapneic secondary to B/L pleural effusion, Pneumonia - Extubated, was on BiPAP all night and will continue BiPAP for the time being 02/14, Fio.40% and 2. Hydropneumothorax -S/P chest tube placement, rt sided, 100 cc 3. Compressive Atelectasis -Continue IV Zosyn & vanco 4. Pleural Effusion l -Pleural effusion analysis indicative of transudative effusion -Continue pigtail for drainage on lasix 40 mg IV daily 8. Acute CHF exacerbation, combine systolic & dyastolic dysfunction -Will continue digoxin -On continue Lasix 9. Paroxysmal A. Fib -Will continue to hold Wafarin -Patient is currently rate controlled 10. HTN - Metoprolol as needed 11. DM Type II -Accucheck with coverage
[2017-10-21] MEDS: Ipratropium 0.02% Inhal Soln (0.5 mg/2.5 ml) UD IH SCH ×2 (13:42→19:19)
[2017-10-21] MEDS: Cholecalciferol 1,000 INTLU TAB PO SCH (16:08)
[2017-10-22] MEDS: Ipratropium 0.02% Inhal Soln (0.5 mg/2.5 ml) UD IH SCH ×4 (02:12→19:05)
[2017-10-22] MEDS: Piperacillin/Tazobact 3.375 GM in Sodium Chloride 0.9% 100 ML IVPB SCH ×4 (03:36→21:06)
[2017-10-22] MEDS: Nitroglycerin 2% Ointment Foilpak UD TOP SCH ×4 (03:39→21:05)
[2017-10-22 05:33] LABS: HEMOGLOBIN 9.2 g/dL (12.0-16.0); MEAN CELL VOLUME 82.4 fl (81.0-99.0); MEAN CORPUSCULAR HGB CONC 31.6 g/dL (33.0-37.0); RBC 3.53 Mil/uL (3.80-5.20); RED CELL DISTRIBUTION WIDTH 17.2 % (11.5-14.5); WHITE BLOOD COUNT 6.6 K/uL (4.8-10.8)
[2017-10-22 05:38] LABS: INR 1.3; PROTHROMBIN TIME 14.1 Seconds (9.8-13.1)
[2017-10-22 06:16] LABS: ALBUMIN 3.1 g/dL (3.5-5.0); ALT/SGPT 27 U/L (9-52); AST/SGOT 27 U/L (14-36); BLOOD UREA NITROGEN 13 mg/dl (7-17); CALCIUM 9.1 mg/dL (8.4-10.2); GFR AFRICAN-AMERICAN > 60; GFR NON-AFRICAN AMERICAN > 60
--- NOTE | 2017-10-22 07:27 | CP.CCUPN ---
CCU Subjective - Physician Review Events Since Last Encounter (Free Text): 10/22/17 12:41 The patient was Seen/interviewed and examined by me at the bedside during ICU round, Medical records reviewed and Management issues were discussed and formulated with the house staff. Events reviewed Patient admitted with Acute, Hypercapneic respiratory failure secondary to Pneumonia with B/L pleural effusion Extubated 10/18, underwent Placement of 8 fr pleural drainage catheter right lower chest. Slight improvement of respiratory status, initially was on BIPAP now on HFNC, Fio.40% Last 24H I&O 2180/2210 CCU Objective - Vital Signs / Intake & Output Vital Signs (Last 4 hours): Vital Signs Temp Pulse Resp BP Pulse Ox 10/22/17 06:00 86 18 133/68 100 10/22/17 04:54 76 10/22/17 04:00 98.1 F 84 16 124/58 L 94 L 10/22/17 03:39 83 131/73 Intake and Output (Last 8hrs): Intake & Output 10/21/17 10/22/17 10/22/17 22:59 06:59 14:59 Intake Total 810 370 Output Total 500 360 Balance 310 10 Weight 96 lb Intake: IV 110 20 Intake, Piggyback 100 350 Oral 600 Output: Chest Tube Drainage 200 110 Right Mid-Axillary Chest 200 110 Urine 300 250 Urethral (Lama) 300 250 Other: # Bowel Movements 2 - Physical Exam Physical Exam Limitations: Positive for: Altered Mental Status Head: Positive for: Atraumatic, Normocephalic Pupils: Positive for: PERRL Extroacular Muscles: Positive for: EOMI Conjunctiva: Positive for: Normal Mouth: Positive for: Moist Mucous Membranes Neck: Positive for: Normal Range of Motion, Trachea Midline. Negative for: Meningeal Signs, MIDLINE TENDERNESS, Paraspinal Tenderness, JVD, Lymphadenopathy , Bruit, Other Respiratory/Chest: Positive for: Decreased Breath Sounds, Rales, Rhonchi. Negative for: Clear to Auscultation, Respiratory Distress, Accessory Muscle Use , Wheezes Cardiovascular: Positive for: Regular Rate and Rhythm, Normal S1, S2, Peripheal Pulses Present. Negative for: Murmurs, Irregular Rhythm Abdomen: Positive for: Normal Bowel Sounds. Negative for: Tenderness, Distention - Medications Active Medications: Active Medications Generic Name Dose Route Start Last Admin Trade Name Freq PRN Reason Stop Dose Admin Acetaminophen 650 mg 10/17/17 13:44 Tylenol 650mg/20.3ml Solution Ud PO Q6 PRN Temperature Acetaminophen 650 mg 10/19/17 23:26 10/19/17 23:15 Tylenol 650mg/20.3ml Solution Ud PO 650 mg Q6 PRN Administration Pain, moderate (4-7) Aspirin 81 mg 10/17/17 09:00 10/21/17 08:56 Aspirin Chewable PO 81 mg DAILY NICOLE Administration Atorvastatin Calcium 20 mg 10/15/17 22:00 10/21/17 22:02 Lipitor PO 20 mg HS NICOLE Administration Cholecalciferol 2,000 intlu 10/16/17 09:00 10/21/17 16:08 Vitamin D PO 2,000 intlu DAILY NICOLE Administration Digoxin 0.25 mg 10/17/17 09:00 10/21/17 08:56 Lanoxin PO 0.25 mg DAILY NICOLE Administration Docusate Sodium 100 mg 10/15/17 17:50 Colace PO BID PRN Constipation Furosemide 40 mg 10/17/17 09:00 10/21/17 08:57 Lasix IVP 40 mg DAILY NICOLE Administration Vancomycin HCl 1 gm/ Sodium 250 mls @ 166.667 mls/hr 10/20/17 21:00 10/21/17 22:00 Chloride IVPB 166.667 mls/hr Q12 NICOLE Administration Protocol Piperacillin Sod/Tazobactam 100 mls @ 100 mls/hr 10/20/17 22:00 10/22/17 03: 36 Sod 3.375 gm/ Sodium Chloride IVPB 100 mls/hr Q6 NICOLE Administration Protocol Ipratropium [place] 0.5 mg 10/21/17 14:00 10/22/17 02:12 Atrovent IH 0.5 mg RQ6 NICOLE Administration Multivitamins/Minerals 1 tab 10/16/17 09:00 10/21/17 08:57 Therapeutic-M Tab PO 1 tab DAILY NICOLE Administration Nitroglycerin 1 ea 10/16/17 16:30 10/22/17 03:39 Nitro-Bid 2% Oint TOP 1 ea Q6 NICOLE Administration Sitagliptin Phosphate 25 mg 10/16/17 09:00 10/18/17 09:22 Januvia PO 25 mg DAILY NICOLE Administration - Patient Studies Lab Studies: Lab Studies 10/22/17 10/22/1710/22/18 Range/Units 04:35 04:35 04:35 WBC 6.6 (4.8-10.8) K/uL RBC 3.53 L (3.80-5.20) Mil/uL Hgb 9.2 L (12.0-16.0) g/dL Hct 29.1 L (34.0-47.0) % MCV 82.4 (81.0-99.0) fl MCH 26.0 L (27.0-31.0) pg MCHC 31.6 L (33.0-37.0) g/dL RDW 17.2 H (11.5-14.5) % Plt Count 227 (130-400) K/uL PT 14.1 H (9.8-13.1) Seconds INR 1.3 pCO2 (35-45) mm/Hg pO2 (80-100) mm/Hg HCO3 (21-28) mmol/L ABG pH (7.35-7.45) ABG Total CO2 (22-28) mmol/L ABG O2 Saturation (95-98) % ABG O2 Content (15-23) ML/dL ABG Base Excess (-2.0-3.0) mmol/L ABG Hemoglobin (11.7-17.4) g/dL ABG Carboxyhemoglobin (0.5-1.5) % POC ABG HHb (Measured) (0.0-5.0) % ABG Methemoglobin (0.0-3.0) % ABG O2 Capacity (16-24) mL/dL Tucker Test A-a O2 Difference mm/Hg Hgb O2 Saturation (95.0-98.0) % Vent Mode FiO2 % Inspiratory BiPAP Expiratory BiPAP Crit Value Called To Crit Value Called By Crit Value Read Back Blood Gas Notified Time Sodium 143 (132-148) mmol/l Potassium 3.8 (3.6-5.0) MMOL/L Chloride 94 L (98-107) mmol/L Carbon Dioxide 44 H* (22-30) mmol/L Anion Gap 9 L (10-20) BUN 13 (7-17) mg/dl Creatinine 0.6 L (0.7-1.2) mg/dl Est GFR ( Amer) > 60 Est GFR (Non-Af Amer) > 60 Random Glucose 107 H (65-105) mg/dL Calcium 9.1 (8.4-10.2) mg/dL Total Bilirubin 1.0 (0.2-1.3) mg/dl AST 27 (14-36) U/L ALT 27 (9-52) U/L Alkaline Phosphatase 54 (38-126) U/L Total Protein 6.2 L (6.3-8.2) G/DL Albumin 3.1 L (3.5-5.0) g/dL Globulin 3.1 (2.2-3.9) gm/dL Albumin/Globulin Ratio 1.0 (1.0-2.1) 10/21/17 Range/Units 09:40 WBC (4.8-10.8) K/uL RBC (3.80-5.20) Mil/uL Hgb (12.0-16.0) g/dL Hct (34.0-47.0) % MCV (81.0-99.0) fl MCH (27.0-31.0) pg MCHC (33.0-37.0) g/dL RDW (11.5-14.5) % Plt Count (130-400) K/uL PT (9.8-13.1) Seconds INR pCO2 72 H* (35-45) mm/Hg pO2 72 L (80-100) mm/Hg HCO3 40.0 H (21-28) mmol/L ABG pH 7.42 (7.35-7.45) ABG Total CO2 48.9 H (22-28) mmol/L ABG O2 Saturation 97.2 (95-98) % ABG O2 Content 12.3 L (15-23) ML/dL ABG Base Excess 19.4 H (-2.0-3.0) mmol/L ABG Hemoglobin 9.3 L (11.7-17.4) g/dL ABG Carboxyhemoglobin 2.7 H (0.5-1.5) % POC ABG HHb (Measured) 2.7 (0.0-5.0) % ABG Methemoglobin 1.4 (0.0-3.0) % ABG O2 Capacity 12.7 L (16-24) mL/dL Tucker Test Yes A-a O2 Difference 123.0 mm/Hg Hgb O2 Saturation 93.2 L (95.0-98.0) % Vent Mode Bipap FiO2 40.0 % Inspiratory BiPAP 12 Expiratory BiPAP 6 Crit Value Called To Amish trejo Crit Value Called By Rt Crit Value Read Back Y Blood Gas Notified Time 951 Sodium (132-148) mmol/l Potassium (3.6-5.0) MMOL/L Chloride (98-107) mmol/L Carbon Dioxide (22-30) mmol/L Anion Gap (10-20) BUN (7-17) mg/dl Creatinine (0.7-1.2) mg/dl Est GFR ( Amer) Est GFR (Non-Af Amer) Random Glucose (65-105) mg/dL Calcium (8.4-10.2) mg/dL Total Bilirubin (0.2-1.3) mg/dl AST (14-36) U/L ALT (9-52) U/L Alkaline Phosphatase (38-126) U/L Total Protein (6.3-8.2) G/DL Albumin (3.5-5.0) g/dL Globulin (2.2-3.9) gm/dL Albumin/Globulin Ratio (1.0-2.1) Laboratory Results - last 24 hr 10/21/17 10/22/17 10/22/17 09:40 04:35 04:35 WBC 6.6 RBC 3.53 L Hgb 9.2 L Hct 29.1 L MCV 82.4 MCH 26.0 L MCHC 31.6 L RDW 17.2 H Plt Count 227 PT INR pCO2 72 H* pO2 72 L HCO3 40.0 H ABG pH 7.42 ABG Total CO2 48.9 H ABG O2 Saturation 97.2 ABG O2 Content 12.3 L ABG Base Excess 19.4 H ABG Hemoglobin 9.3 L ABG Carboxyhemoglobin 2.7 H POC ABG HHb (Measured) 2.7 ABG Methemoglobin 1.4 ABG O2 Capacity 12.7 L Tucker Test Yes A-a O2 Difference 123.0 Hgb O2 Saturation 93.2 L Vent Mode Bipap FiO2 40.0 Inspiratory BiPAP 12 Expiratory BiPAP 6 Crit Value Called To Amish trejo Crit Value Called By Rt Crit Value Read Back Y Blood Gas Notified Time 951 Sodium 143 Potassium 3.8 Chloride 94 L Carbon Dioxide 44 H* Anion Gap 9 L BUN 13 Creatinine 0.6 L Est GFR ( Amer) > 60 Est GFR (Non-Af Amer) > 60 Random Glucose 107 H Calcium 9.1 Total Bilirubin 1.0 AST 27 ALT 27 Alkaline Phosphatase 54 Total Protein 6.2 L Albumin 3.1 L Globulin 3.1 Albumin/Globulin Ratio 1.0 10/22/17 04:35 WBC RBC Hgb Hct MCV MCH MCHC RDW Plt Count PT 14.1 H INR 1.3 pCO2 pO2 HCO3 ABG pH ABG Total CO2 ABG O2 Saturation ABG O2 Content ABG Base Excess ABG Hemoglobin ABG Carboxyhemoglobin POC ABG HHb (Measured) ABG Methemoglobin ABG O2 Capacity [place] Test A-a O2 Difference Hgb O2 Saturation Vent Mode FiO2 Inspiratory BiPAP Expiratory BiPAP Crit Value Called To Crit Value Called By Crit Value Read Back Blood Gas Notified Time Sodium Potassium Chloride Carbon Dioxide Anion Gap BUN Creatinine Est GFR ( Amer) Est GFR (Non-Af Amer) Random Glucose Calcium Total Bilirubin AST ALT Alkaline Phosphatase Total Protein Albumin Globulin Albumin/Globulin Ratio Fingerstick Blood Sugar Results: 93 Review of Systems - Review of Systems Systems not reviewed;Unavailable: Acuity of Condition Critical Care Progress Note - Extremities/Vascular Does the Patient have a Central Venous Catheter?: No Does the Patient need a Central Venous Catheter?: No Does the Patient have a Lama Catheter?: No Does the Patient need a Lama Catheter?: No - Nutrition Nutrition: Nutrition Category Date Time Status Heart Healthy Diet [DIET] Diets 10/18/17 Breakfast Active Assessment/Plan (1) Acute respiratory failure with hypercapnia Current Visit: Yes Status: Acute Priority: High Comment: Vancomycin HCl 1 gm IVBP Q12 NICOLE Piperacillin Sod/Tazobactam Sod 3.375 gm IVBP Q6 NICOLE (2) Bilateral pleural effusion Current Visit: Yes Status: Acute Priority: High Comment: S/P Placement of 8 fr pleural drainage catheter right lower chest. Pleural effusion analysis indicative of transudative effusion (3) CHF (congestive heart failure) Current Visit: Yes Status: Acute Priority: High Comment: ASA, Statins Lasix 40 mg IV DAILY Last 24H I&O 2180/2210 (4) Compressive atelectasis Current Visit: Yes Status: Acute Priority: High (5) Paroxysmal atrial fibrillation Current Visit: Yes Status: Chronic (6) Pulmonary hypertension Current Visit: Yes Status: Chronic Priority: High
[2017-10-22] MEDS: Multivitamin With Minerals Tab PO SCH (08:21)
[2017-10-22] MEDS: Digoxin 250 mcg (0.25 mg) Tab PO SCH (08:21)
[2017-10-22] MEDS: Cholecalciferol 1,000 INTLU TAB PO SCH (08:22)
--- NOTE | 2017-10-22 09:41 | CP.PCM.PN ---
<Eryn Au - Last Filed: 10/22/17 15:01> Subjective - Date & Time of Evaluation Date of Evaluation: 10/22/17 Time of Evaluation: 09:21 - Subjective Subjective: Patient seen and examined this AM with Dr. Tirso Au , PGY-1 Patient sitting upright in bed, eating breakfast with son at the bedside. Patient afebrile with pigtail catheter in place that drained 310ml overnight. Patient currently on high flow NC. ABG yesterday showed PCO2 72. Denied any sob this AM. Objective - Vital Signs/Intake and Output Vital Signs (last 24 hours): Temp Pulse Resp BP Pulse Ox 98.7 F 74 20 138/56 L 98 10/22/17 07:58 10/22/17 09:03 10/22/17 08:01 10/22/17 09:03 10/22/17 07:58 Intake and Output: 10/22/17 10/22/17 06:59 18:59 Intake Total 480 400 Output Total 710 60 Balance -230 340 - Medications Medications: Current Medications Acetaminophen (Tylenol 650mg/20.3ml Solution Ud) 650 mg PO Q6 PRN PRN Reason: Temperature Acetaminophen (Tylenol 650mg/20.3ml Solution Ud) 650 mg PO Q6 PRN PRN Reason: Pain, moderate (4-7) Last Admin: 10/19/17 23:15 Dose: 650 mg Aspirin (Aspirin Chewable) 81 mg PO DAILY [facility] Last Admin: 10/22/17 08:20 Dose: 81 mg Atorvastatin Calcium (Lipitor) 20 mg PO HS [facility] Last Admin: 10/21/17 22:02 Dose: 20 mg Cholecalciferol (Vitamin D) 2,000 intlu PO DAILY [facility] Last Admin: 10/22/17 08:22 Dose: 2,000 intlu Digoxin (Lanoxin) 0.25 mg PO DAILY [facility] Last Admin: 10/22/17 08:21 Dose: 0.25 mg Docusate Sodium (Colace) 100 mg PO BID PRN PRN Reason: Constipation Furosemide (Lasix) 40 mg IVP DAILY [facility] Last Admin: 10/22/17 08:21 Dose: 40 mg Vancomycin HCl 1 gm/ Sodium (Chloride) 250 mls @ 166.667 mls/hr IVPB Q12 [facility] PRN Reason: Protocol Last Admin: 10/22/17 08:22 Dose: 166.667 mls/hr Piperacillin Sod/Tazobactam (Sod 3.375 gm/ Sodium Chloride) 100 mls @ 100 mls/ hr IVPB Q6 [facility] PRN Reason: Protocol Last Admin: 10/22/17 09:01 Dose: 100 mls/hr Ipratropium [place] (Atrovent) 0.5 mg IH RQ6 [facility] Last Admin: 10/22/17 07:53 Dose: Not Given Multivitamins/Minerals (Therapeutic-M Tab) 1 tab PO DAILY [facility] Last Admin: 10/22/17 08:21 Dose: 1 tab Nitroglycerin (Nitro-Bid 2% Oint) 1 ea TOP Q6 [facility] Last Admin: 10/22/17 09:03 Dose: 1 ea Sitagliptin Phosphate (Januvia) 25 mg PO DAILY [facility] Last Admin: 10/18/17 09:22 Dose: 25 mg - Labs Labs: 10/22/17 04:35 10/22/17 04:35 PT 14.1 Seconds (9.8-13.1) H 10/22/17 04:35 INR 1.3 10/22/17 04:35 APTT 27.6 Seconds (25.6-37.1) 10/18/17 04:45 - Constitutional Appears: No Acute Distress - Head Exam Head Exam: ATRAUMATIC - Eye Exam Eye Exam: EOMI - Neck Exam Neck Exam: Full ROM - Respiratory Exam Respiratory Exam: Rales, Rhonchi - Cardiovascular Exam Cardiovascular Exam: +S1 - GI/Abdominal Exam GI & Abdominal Exam: Soft, Normal Bowel Sounds - Extremities Exam Extremities Exam: Normal Inspection - Back Exam Back Exam: NORMAL INSPECTION Additional comments: no CVA tenderness - Neurological Exam Neurological Exam: Oriented x3 - Psychiatric Exam Psychiatric exam: Normal Mood - Skin Skin Exam: Dry, Intact Assessment and Plan - Assessment and Plan (Free Text) Assessment: 86 y/o F with h/o CHF, pulmonary HTN, Chronic AFib & DMII who presented to ED complaining of SOB and dyspnea found to have CHF exacerbation with B/L pleura effusion. Patient's Troponins minimally elevated also. Patient was admitted to telemetry, then transferred to ICU since 10/17 because of lethargy. ABG performed showed severe hypercapneic. Patient was placed on Bipap, then intubated for airway protection, followed by self-extubation on 10/19 with improvement in mentation. 1. Acute Hypercapneic Respiratory Failure secondary to B/L pleural effusion, Pneumonia & CO2 retention -Bipap changed to high flow o2 -Repeat CXR performed 10/21 showed stable b/l pleural effusion with no appreciable pneumothorax -Repeat CT of chest ordered, but patient refused -Pulm team is following patient -CO2 remains elevated, but patient is stable 2. Acute CO2 Narcosis - Continue high flow o2 3. Hydropneumothorax -S/P chest tube placement -Repeat chest x-ray showed improvement -Output 310ml 4. Compressive Atelectasis -Continue empiric IV Zosyn & vanco 5. Acute Elevated Troponin -Unlikely secondary to ischemia -Will continue ASA & Statin therapy 6. Prothrombin time increased due to coumadin -INR today 1.3 -Will continue to hold warfarin because patient has serosanginous drainage 7. Pleural Effusion likely secondary to CHF -Pleural effusion analysis indicative of transudative effusion -Continue pigtail for drainage 8. Acute CHF exacerbation, combine systolic & dyastolic dysfunction -Will continue digoxin -Will continue Lasix PRN 9. Paroxysmal A. Fib -Will continue to hold Wafarin because of serosanginous pleural fluid & INR of 1.3 -Patient is currently rate controlled 10. HTN (controlled) 11. DM Type II -Accucheck with coverage 12. DVT prophylaxis <Gill Chahal - Last Filed: 10/22/17 15:47> Objective - Vital Signs/Intake and Output Vital Signs (last 24 hours): Temp Pulse Resp BP Pulse Ox 98.5 F 88 22 122/53 L 95 10/22/17 12:00 10/22/17 14:00 10/22/17 15:22 10/22/17 14:00 10/22/17 14:00 Intake and Output: 10/22/17 10/22/17 06:59 18:59 Intake Total 480 1500 Output Total 710 1060 Balance -230 440 - Medications Medications: Current Medications Acetaminophen (Tylenol 650mg/20.3ml Solution Ud) 650 mg PO Q6 PRN PRN Reason: Temperature Acetaminophen (Tylenol 650mg/20.3ml Solution Ud) 650 mg PO Q6 PRN PRN Reason: Pain, moderate (4-7) Last Admin: 10/19/17 23:15 Dose: 650 mg Aspirin (Aspirin Chewable) 81 mg PO DAILY [facility] Last Admin: 10/22/17 08:20 Dose: 81 mg Atorvastatin Calcium (Lipitor) 20 mg PO HS [facility] Last Admin: 10/21/17 22:02 Dose: 20 mg Cholecalciferol (Vitamin D) 2,000 intlu PO DAILY [facility] Last Admin: 10/22/17 08:22 Dose: 2,000 intlu Digoxin (Lanoxin) 0.25 mg PO DAILY [facility] Last Admin: 10/22/17 08:21 Dose: 0.25 mg Docusate Sodium (Colace) 100 mg PO BID PRN PRN Reason: Constipation Furosemide (Lasix) 40 mg IVP DAILY [facility] Last Admin: 10/22/17 08:21 Dose: 40 mg Vancomycin HCl 1 gm/ Sodium (Chloride) 250 mls @ 166.667 mls/hr IVPB Q12 [facility] PRN Reason: Protocol Last Admin: 10/22/17 08:22 Dose: 166.667 mls/hr Piperacillin Sod/Tazobactam (Sod 3.375 gm/ Sodium Chloride) 100 mls @ 100 mls/ hr IVPB Q6 [facility] PRN Reason: Protocol Last Admin: 10/22/17 09:01 Dose: 100 mls/hr Ipratropium [place] (Atrovent) 0.5 mg IH RQ6 [facility] Last Admin: 10/22/17 13:09 Dose: 0.5 mg Multivitamins/Minerals (Therapeutic-M Tab) 1 tab PO DAILY [facility] Last Admin: 10/22/17 08:21 Dose: 1 tab Nitroglycerin (Nitro-Bid 2% Oint) 1 ea TOP Q6 [facility] Last Admin: 10/22/17 09:03 Dose: 1 ea - Labs Labs: 10/22/17 04:35 10/22/17 04:35 PT 14.1 Seconds (9.8-13.1) H 10/22/17 04:35 INR 1.3 10/22/17 04:35 APTT 27.6 Seconds (25.6-37.1) 10/18/17 04:45 Assessment and Plan (1) Acute respiratory failure with hypercapnia Status: Acute (2) CO2 narcosis Status: Acute (3) Compressive atelectasis Status: Acute (4) Elevated troponin Status: Acute (5) Prothrombin time increased due to coumadin Status: Acute (6) Pleural effusion Status: Acute (7) CHF (congestive heart failure) Status: Acute (8) Paroxysmal atrial fibrillation Status: Chronic (9) HTN (hypertension) Status: Acute Attending/Attestation - Attestation I have personally seen and examined this patient.: Yes I have fully participated in the care of the patient.: Yes I have reviewed all pertinent clinical information, including history, physical exam and plan: Yes
--- NOTE | 2017-10-22 13:40 | CP.PCM.PN ---
<Jose Mejia - Last Filed: 10/22/17 13:56> Subjective - Date & Time of Evaluation Date of Evaluation: 10/22/17 Time of Evaluation: 07:30 - Subjective Subjective: Patient seen and evaluated in ICU this morning during morning rounds. Patient lying in bed. Mildly fatigued. Denies SOB at rest. Currently on HFNC. Was on BiPAP overnight. Tried nasal cannula but switched due to decrease in SPO2. Chest tube drained about 310 ml overnight and 195 ml serosanguinous fluids since this morning. Vitals stable, afebrile, low normal SpO2. T 98.7, P 79, BP 125/66, RR 22 and Spo2 98 on HFNC Trachea midline, Pharynx pink and moist W/O exudates. Diminished breath sounds bilaterally with few sonorous rhonchi. No audible wheezes or bronchial breath sounds. No pedal edema or dependent edema. Continue with HFNC(40L/40%) Patient still remains hypercapnic pCO2 72, PH 7.42 CXR unchanged from previous, continues to show B/L pleural effusion and increased pulmonary vascular markings. Patient agreeable to do CT chest today to evaluate effectiveness of right pleural catheter and left pleural effusion. Continue with current medical management. Objective - Vital Signs/Intake and Output Vital Signs (last 24 hours): Temp Pulse Resp BP Pulse Ox 98.5 F 66 18 128/56 L 96 10/22/17 12:00 10/22/17 12:00 10/22/17 12:00 10/22/17 12:00 10/22/17 12:00 Intake and Output: 10/22/17 10/22/17 06:59 18:59 Intake Total 480 1000 Output Total 710 960 Balance -230 40 - Medications Medications: Current Medications Acetaminophen (Tylenol 650mg/20.3ml Solution Ud) 650 mg PO Q6 PRN PRN Reason: Temperature Acetaminophen (Tylenol 650mg/20.3ml Solution Ud) 650 mg PO Q6 PRN PRN Reason: Pain, moderate (4-7) Last Admin: 10/19/17 23:15 Dose: 650 mg Aspirin (Aspirin Chewable) 81 mg PO DAILY [facility] Last Admin: 10/22/17 08:20 Dose: 81 mg Atorvastatin Calcium (Lipitor) 20 mg PO HS [facility] Last Admin: 10/21/17 22:02 Dose: 20 mg Cholecalciferol (Vitamin D) 2,000 intlu PO DAILY [facility] Last Admin: 10/22/17 08:22 Dose: 2,000 intlu Digoxin (Lanoxin) 0.25 mg PO DAILY [facility] Last Admin: 10/22/17 08:21 Dose: 0.25 mg Docusate Sodium (Colace) 100 mg PO BID PRN PRN Reason: Constipation Furosemide (Lasix) 40 mg IVP DAILY [facility] Last Admin: 10/22/17 08:21 Dose: 40 mg Vancomycin HCl 1 gm/ Sodium (Chloride) 250 mls @ 166.667 mls/hr IVPB Q12 [facility] PRN Reason: Protocol Last Admin: 10/22/17 08:22 Dose: 166.667 mls/hr Piperacillin Sod/Tazobactam (Sod 3.375 gm/ Sodium Chloride) 100 mls @ 100 mls/ hr IVPB Q6 [facility] PRN Reason: Protocol Last Admin: 10/22/17 09:01 Dose: 100 mls/hr Ipratropium [place] (Atrovent) 0.5 mg IH RQ6 [facility] Last Admin: 10/22/17 13:09 Dose: 0.5 mg Multivitamins/Minerals (Therapeutic-M Tab) 1 tab PO DAILY [facility] Last Admin: 10/22/17 08:21 Dose: 1 tab Nitroglycerin (Nitro-Bid 2% Oint) 1 ea TOP Q6 [facility] Last Admin: 10/22/17 09:03 Dose: 1 ea Sitagliptin Phosphate (Januvia) 25 mg PO DAILY [facility] Last Admin: 10/18/17 09:22 Dose: 25 mg - Labs Labs: 10/22/17 04:35 10/22/17 04:35 PT 14.1 Seconds (9.8-13.1) H 10/22/17 04:35 INR 1.3 10/22/17 04:35 APTT 27.6 Seconds (25.6-37.1) 10/18/17 04:45 <Tu Richardson - Last Filed: 10/23/17 11:32> Subjective - Subjective Subjective: Patient was seen and examined on rounds with the residents. Clinical and ancillary findings were reviewed/discussed. The note, as entered, was reviewed without changes or additions. Objective - Vital Signs/Intake and Output Vital Signs (last 24 hours): Temp Pulse Resp BP Pulse Ox 98.0 F 84 20 131/48 L 95 10/23/17 08:00 10/23/17 10:00 10/23/17 10:00 10/23/17 10:00 10/23/17 10:00 Intake and Output: 10/22/17 10/23/17 23:59 11:59 Intake Total 1610 980 Output Total 660 710 Balance 950 270 - Medications Medications: Current Medications Acetaminophen (Tylenol 650mg/20.3ml Solution Ud) 650 mg PO Q6 PRN PRN Reason: Temperature Acetaminophen (Tylenol 650mg/20.3ml Solution Ud) 650 mg PO Q6 PRN PRN Reason: Pain, moderate (4-7) Last Admin: 10/19/17 23:15 Dose: 650 mg Aspirin (Aspirin Chewable) 81 mg PO DAILY [facility] Last Admin: 10/23/17 08:38 Dose: 81 mg Atorvastatin Calcium (Lipitor) 20 mg PO HS [facility] Last Admin: 10/22/17 21:00 Dose: 20 mg Cholecalciferol (Vitamin D) 2,000 intlu PO DAILY [facility] Last Admin: 10/23/17 08:40 Dose: 2,000 intlu Digoxin (Lanoxin) 0.25 mg PO DAILY [facility] Last Admin: 10/23/17 08:38 Dose: 0.25 mg Docusate Sodium (Colace) 100 mg PO BID PRN PRN Reason: Constipation Enoxaparin Sodium (Lovenox) 40 mg SC DAILY [facility] PRN Reason: Protocol Furosemide (Lasix) 40 mg IVP DAILY [facility] Last Admin: 10/23/17 08:39 Dose: 40 mg Vancomycin HCl 1 gm/ Sodium (Chloride) 250 mls @ 166.667 mls/hr IVPB Q12 [facility] PRN Reason: Protocol Last Admin: 10/23/17 08:39 Dose: Not Given Piperacillin Sod/Tazobactam (Sod 3.375 gm/ Sodium Chloride) 100 mls @ 100 mls/ hr IVPB Q6 [facility] PRN Reason: Protocol Last Admin: 10/23/17 09:07 Dose: 100 mls/hr Ipratropium [place] (Atrovent) 0.5 mg IH RQ6 [facility] Last Admin: 10/23/17 07:24 Dose: 0.5 mg Multivitamins/Minerals (Therapeutic-M Tab) 1 tab PO DAILY [facility] Last Admin: 10/23/17 08:39 Dose: 1 tab Nitroglycerin (Nitro-Bid 2% Oint) 1 ea TOP Q6 [facility] Last Admin: 10/23/17 09:07 Dose: 1 ea - Labs Labs: 10/23/17 04:00 10/23/17 05:46 PT 14.1 Seconds (9.8-13.1) H 10/22/17 04:35 INR 1.3 10/22/17 04:35 APTT 27.6 Seconds (25.6-37.1) 10/18/17 04:45 Assessment and Plan (1) Bilateral pleural effusion Status: Acute (2) Pulmonary hypertension Status: Chronic (3) Acute respiratory failure with hypercapnia Status: Acute
--- NOTE | 2017-10-22 17:45 | CT ---
Date of service: 10/22/2017 PROCEDURE: CT Chest without contrast HISTORY: pleural effusion COMPARISON: 10/15/2017 CT thorax TECHNIQUE: Contiguous axial images were obtained through the chest without intravenous contrast enhancement. Sagittal and coronal reconstructions were performed. Radiation dose (DLP): 147.132 mGy-cm. This CT exam was performed using one or more of the following dose reduction techniques: Automated exposure control, adjustment of the mA and/or kV according to patient size, and/or use of iterative reconstruction technique. FINDINGS: LUNGS: Multifocal infiltrates primarily affecting right lung MEDIASTINUM: Unremarkable thoracic aorta. No aneurysm. Cardiomegaly. No pericardial effusion identified Main pulmonary artery unremarkable. No vascular congestion. No lymphadenopathy. PLEURA: Increasing bilateral pleural effusions. Pigtail catheter in the right pleural space a new finding compared to the prior CT scan. BONES: No fracture. No destructive lesion. UPPER ABDOMEN: Grossly unremarkable. OTHER FINDINGS: None. IMPRESSION: Cardiomegaly, multifocal infiltrates likely asymmetric cardiogenic pulmonary edema. Increasing bilateral pleural effusions.
[2017-10-23] MEDS: Ipratropium 0.02% Inhal Soln (0.5 mg/2.5 ml) UD IH SCH ×4 (01:00→19:14)
[2017-10-23] MEDS: Piperacillin/Tazobact 3.375 GM in Sodium Chloride 0.9% 100 ML IVPB SCH ×3 (03:11→16:25)
[2017-10-23 06:07] LABS: BASO % 0.5 % (0.0-2.0); EOS # 0.1 K/uL (0.0-0.7); EOS % 1.1 % (0.0-4.0); HEMOGLOBIN 8.6 g/dL (12.0-16.0); LYMPH # 0.6 K/uL (1.0-4.3); LYMPH % 8.1 % (20.0-40.0); MEAN CORPUSCULAR HEMOGLOBIN 25.8 pg (27.0-31.0); MEAN CORPUSCULAR HGB CONC 31.5 g/dL (33.0-37.0); MEAN PLATELET VOLUME 8.2 fl (7.2-11.7); MONO # 1.2 K/uL (0.0-0.8); MONO % 15.9 % (0.0-10.0); NEUT # 5.6 K/uL (1.8-7.0); NEUT % 74.4 % (50.0-75.0); RBC 3.31 Mil/uL (3.80-5.20); RED CELL DISTRIBUTION WIDTH 17.2 % (11.5-14.5); WHITE BLOOD COUNT 7.5 K/uL (4.8-10.8)
[2017-10-23 06:08] LABS: ALT/SGPT 25 U/L (9-52); AST/SGOT 27 U/L (14-36); BLOOD UREA NITROGEN 10 mg/dl (7-17); CALCIUM 8.9 mg/dL (8.4-10.2); GFR AFRICAN-AMERICAN > 60; GFR NON-AFRICAN AMERICAN > 60
[2017-10-23] MEDS: Digoxin 250 mcg (0.25 mg) Tab PO SCH (08:38)
[2017-10-23] MEDS: Multivitamin With Minerals Tab PO SCH (08:39)
[2017-10-23] MEDS: Cholecalciferol 1,000 INTLU TAB PO SCH (08:40)
[2017-10-23] MEDS: Nitroglycerin 2% Ointment Foilpak UD TOP SCH ×3 (09:07→21:27)
--- NOTE | 2017-10-23 09:29 | RAD ---
Date of service: 10/23/2017 PROCEDURE: CHEST RADIOGRAPH, 1 VIEW HISTORY: Pleural effusion COMPARISON: None available. FINDINGS: LUNGS: The lungs are well inflated. Again seen is consolidation in the right lower lobe. PLEURA: No pneumothorax. Again seen is a small right pleural effusion. CARDIOVASCULAR: There is moderate cardiomegaly. OSSEOUS STRUCTURES: No significant abnormalities. VISUALIZED UPPER ABDOMEN: Normal. OTHER FINDINGS: None. IMPRESSION: No change in right lower lobe consolidation and small right pleural effusion.
--- NOTE | 2017-10-23 11:24 | CP.PCM.PN ---
<Yara Coker - Last Filed: 10/23/17 11:52> Subjective - Date & Time of Evaluation Date of Evaluation: 10/23/17 Time of Evaluation: 09:00 - Subjective Subjective: Patient lying in bed, feels a little better, has a decreased appetite, was on NC yesterday then switched to BiPaP overnight however couldnt tolerate, now shes back on NC 4L. Denies SOB at rest, O2 Sat 96%. Pig tail drained about 450 cc overnight. Patient still complaining of loose stool, Vanc trough 22.7. Vitals stable, afebrile 98.7, BP 131/48. CT scan showed asymmetric cardiogenic edema with increasing bilateral pleural effusions. Pt still hypercapnic CO2 72. Hg 8.6. On Physical exam, diminished breath sounds heard B/L, with few sonorous rhonchi. No audible wheezes no bronchial breath sounds. No dependent edema. Plan is to talk to cardio and interventional cardio about optimizing patients heart condition, Order EKG, Order CXR, restrict fluids, Discontinue Vanc. Continue ASA and lovenox for Afib. Continue Atrovent Q6. Objective - Vital Signs/Intake and Output Vital Signs (last 24 hours): Temp Pulse Resp BP Pulse Ox 98.0 F 84 20 131/48 L 95 10/23/17 08:00 10/23/17 10:00 10/23/17 10:00 10/23/17 10:00 10/23/17 10:00 Intake and Output: 10/23/17 10/23/17 06:59 18:59 Intake Total 740 700 Output Total 290 520 Balance 450 180 - Medications Medications: Current Medications Acetaminophen (Tylenol 650mg/20.3ml Solution Ud) 650 mg PO Q6 PRN PRN Reason: Temperature Acetaminophen (Tylenol 650mg/20.3ml Solution Ud) 650 mg PO Q6 PRN PRN Reason: Pain, moderate (4-7) Last Admin: 10/19/17 23:15 Dose: 650 mg Aspirin (Aspirin Chewable) 81 mg PO DAILY [facility] Last Admin: 10/23/17 08:38 Dose: 81 mg Atorvastatin Calcium (Lipitor) 20 mg PO HS [facility] Last Admin: 10/22/17 21:00 Dose: 20 mg Cholecalciferol (Vitamin D) 2,000 intlu PO DAILY [facility] Last Admin: 10/23/17 08:40 Dose: 2,000 intlu Digoxin (Lanoxin) 0.25 mg PO DAILY [facility] Last Admin: 10/23/17 08:38 Dose: 0.25 mg Docusate Sodium (Colace) 100 mg PO BID PRN PRN Reason: Constipation Enoxaparin Sodium (Lovenox) 40 mg SC DAILY [facility] PRN Reason: Protocol Furosemide (Lasix) 40 mg IVP DAILY [facility] Last Admin: 10/23/17 08:39 Dose: 40 mg Vancomycin HCl 1 gm/ Sodium (Chloride) 250 mls @ 166.667 mls/hr IVPB Q12 [facility] PRN Reason: Protocol Last Admin: 10/23/17 08:39 Dose: Not Given Piperacillin Sod/Tazobactam (Sod 3.375 gm/ Sodium Chloride) 100 mls @ 100 mls/ hr IVPB Q6 [facility] PRN Reason: Protocol Last Admin: 10/23/17 09:07 Dose: 100 mls/hr Ipratropium [place] (Atrovent) 0.5 mg IH RQ6 [facility] Last Admin: 10/23/17 07:24 Dose: 0.5 mg Multivitamins/Minerals (Therapeutic-M Tab) 1 tab PO DAILY [facility] Last Admin: 10/23/17 08:39 Dose: 1 tab Nitroglycerin (Nitro-Bid 2% Oint) 1 ea TOP Q6 [facility] Last Admin: 10/23/17 09:07 Dose: 1 ea - Labs Labs: 10/23/17 04:00 10/23/17 05:46 PT 14.1 Seconds (9.8-13.1) H 10/22/17 04:35 INR 1.3 10/22/17 04:35 APTT 27.6 Seconds (25.6-37.1) 10/18/17 04:45 <Tu Richardson - Last Filed: 10/27/17 11:57> Subjective - Subjective Subjective: Seen and examined together with the residents on rounds. Physical findings were discussed and any ancillary studies reviewed. The case was discussed and medical assessment and continued plan of care formulated. The entry in the EMR by the resident was reviewed and accurately describes the encounter. Objective - Vital Signs/Intake and Output Vital Signs (last 24 hours): Temp Pulse Resp BP Pulse Ox 97.4 F L 86 18 144/76 97 10/27/17 09:00 10/27/17 10:03 10/27/17 09:00 10/27/17 10:03 10/27/17 09:00 Intake and Output: 10/26/17 10/27/17 23:59 11:59 Intake Total 124 0 Output Total 375 Balance -251 0 - Medications Medications: Current Medications Acetaminophen (Tylenol 650mg/20.3ml Solution Ud) 650 mg PO Q6 PRN PRN Reason: Temperature Acetaminophen (Tylenol 650mg/20.3ml Solution Ud) 650 mg PO Q6 PRN PRN Reason: Pain, moderate (4-7) Last Admin: 10/19/17 23:15 Dose: 650 mg Acetazolamide (Diamox 500 Mg Inj) 500 mg IV Q12 [facility] Last Admin: 10/27/17 11:08 Dose: 500 mg Aspirin (Aspirin Chewable) 81 mg PO DAILY [facility] Last Admin: 10/26/17 09:24 Dose: Not Given Atorvastatin Calcium (Lipitor) 20 mg PO HS [facility] Last Admin: 10/26/17 22:05 Dose: 20 mg Cholecalciferol (Vitamin D) 2,000 intlu PO DAILY [facility] Last Admin: 10/27/17 10:00 Dose: 2,000 intlu Digoxin (Lanoxin) 0.25 mg PO DAILY [facility] Last Admin: 10/27/17 10:33 Dose: 0.25 mg Docusate Sodium (Colace) 100 mg PO BID PRN PRN Reason: Constipation Enoxaparin Sodium (Lovenox) 40 mg SC DAILY [facility] PRN Reason: Protocol Last Admin: 10/26/17 09:25 Dose: Not Given Ipratropium [place] (Atrovent) 0.5 mg IH RQ6 PRN PRN Reason: Wheezing Multivitamins/Minerals (Therapeutic-M Tab) 1 tab PO DAILY [facility] Last Admin: 10/27/17 10:00 Dose: 1 tab Nitroglycerin (Nitro-Bid 2% Oint) 1 ea TOP Q6 [facility] Last Admin: 10/27/17 10:03 Dose: 1 ea - Labs Labs: 10/27/17 06:27 10/27/17 06:27 PT 14.1 Seconds (9.8-13.1) H 10/22/17 04:35 INR 1.3 10/22/17 04:35 APTT 27.6 Seconds (25.6-37.1) 10/18/17 04:45 Assessment and Plan (1) Bilateral pleural effusion Status: Acute (2) Pulmonary hypertension Status: Chronic (3) Acute respiratory failure with hypercapnia Status: Acute
--- NOTE | 2017-10-23 11:51 | CP.CCUPN ---
CCU Subjective - Physician Review Subjective (Free Text): 10/23/17 15:38 The patient was Seen/interviewed and examined by me at the bedside during ICU round, Medical records reviewed and Management issues were discussed and formulated with the house staff. Events reviewed Patient admitted with Acute, Hypercapneic respiratory failure secondary to Pneumonia with B/L pleural effusion Extubated 10/18, underwent Placement of 8 fr pleural drainage catheter right lower chest. Slight improvement of respiratory status, initially requiring BIPAP now on HFNC Fio.40% alternating with nasal cannula with nocturnal BIPAP This morning she feels well and is hemodynamically stable, denies any chest pain or SOB Afebrile Saturation 95-98% on NC Chest tube output 140/last 24H Last 24H I&O 2890/1410 CCU Objective - Vital Signs / Intake & Output Vital Signs (Last 4 hours): Vital Signs Temp Pulse Resp BP Pulse Ox 10/23/17 10:00 84 20 131/48 L 95 10/23/17 09:07 66 145/60 10/23/17 08:39 140/56 L 10/23/17 08:00 98.0 F 57 L 23 140/56 L 97 Intake and Output (Last 8hrs): Intake & Output 10/22/17 10/23/17 10/23/17 22:59 06:59 14:59 Intake Total 1110 280 700 Output Total 160 190 520 Balance 950 90 180 Intake: IV 260 110 Intake, Piggyback 100 100 Oral 750 170 600 Output: Chest Tube Drainage 140 Right Mid-Axillary Chest 140 Urine 160 50 520 Urethral (Lama) 160 50 520 Other: # Bowel Movements 1 1 - Physical Exam Head: Positive for: Atraumatic, Normocephalic Pupils: Positive for: PERRL Extroacular Muscles: Positive for: EOMI Conjunctiva: Positive for: Normal Mouth: Positive for: Moist Mucous Membranes Neck: Positive for: Normal Range of Motion, Trachea Midline. Negative for: Meningeal Signs, MIDLINE TENDERNESS, Paraspinal Tenderness, JVD, Lymphadenopathy , Bruit, Other Respiratory/Chest: Positive for: Decreased Breath Sounds, Rales, Rhonchi. Negative for: Clear to Auscultation, Respiratory Distress, Accessory Muscle Use , Wheezes Cardiovascular: Positive for: Regular Rate and Rhythm, Normal S1, S2, Peripheal Pulses Present. Negative for: Murmurs, Irregular Rhythm Abdomen: Positive for: Normal Bowel Sounds. Negative for: Tenderness, Distention - Medications Active Medications: Active Medications Generic Name Dose Route Start Last Admin Trade Name Freq PRN Reason Stop Dose Admin Acetaminophen 650 mg 10/17/17 13:44 Tylenol 650mg/20.3ml Solution Ud PO Q6 PRN Temperature Acetaminophen 650 mg 10/19/17 23:26 10/19/17 23:15 Tylenol 650mg/20.3ml Solution Ud PO 650 mg Q6 PRN Administration Pain, moderate (4-7) Aspirin 81 mg 10/17/17 09:00 10/23/17 08:38 Aspirin Chewable PO 81 mg DAILY NICOLE Administration Atorvastatin Calcium 20 mg 10/15/17 22:00 10/22/17 21:00 Lipitor PO 20 mg HS NICOLE Administration Cholecalciferol 2,000 intlu 10/16/17 09:00 10/23/17 08:40 Vitamin D PO 2,000 intlu DAILY NICOLE Administration Digoxin 0.25 mg 10/17/17 09:00 10/23/17 08:38 Lanoxin PO 0.25 mg DAILY NICOLE Administration Docusate Sodium 100 mg 10/15/17 17:50 Colace PO BID PRN Constipation Enoxaparin Sodium 40 mg 10/23/17 09:00 Lovenox SC DAILY NICOLE Protocol Furosemide 40 mg 10/17/17 09:00 10/23/17 08:39 Lasix IVP 40 mg DAILY NICOLE Administration Vancomycin HCl 1 gm/ Sodium 250 mls @ 166.667 mls/hr 10/20/17 21:00 10/23/17 08:39 Chloride IVPB Not Given Q12 NICOLE Protocol Piperacillin Sod/Tazobactam 100 mls @ 100 mls/hr 10/20/17 22:00 10/23/17 09: 07 Sod 3.375 gm/ Sodium Chloride IVPB 100 mls/hr Q6 NICOLE Administration Protocol Ipratropium [place] 0.5 mg 10/21/17 14:00 10/23/17 07:24 Atrovent IH 0.5 mg RQ6 NICOLE Administration Multivitamins/Minerals 1 tab 10/16/17 09:00 10/23/17 08:39 Therapeutic-M Tab PO 1 tab DAILY NICOLE Administration Nitroglycerin 1 ea 10/16/17 16:30 10/23/17 09:07 Nitro-Bid 2% Oint TOP 1 ea Q6 NICOLE Administration - Patient Studies Lab Studies: Microbiology Studies 10/17/17 14:57 Gram Stain - Final Body Fluid - Lung-Left Body Fluid Culture - Final Coagulase Neg Staphylococcus Lab Studies 10/23/17 10/23/17 10/23/17 Range/Units 11:21 05:46 05:26 WBC (4.8-10.8) K/uL RBC (3.80-5.20) Mil/uL Hgb (12.0-16.0) g/dL Hct (34.0-47.0) % MCV (81.0-99.0) fl MCH (27.0-31.0) pg MCHC (33.0-37.0) g/dL RDW (11.5-14.5) % Plt Count (130-400) K/uL MPV (7.2-11.7) fl Neut % (Auto) (50.0-75.0) % Lymph % (Auto) (20.0-40.0) % Wise % (Auto) (0.0-10.0) % Eos % (Auto) (0.0-4.0) % Baso % (Auto) (0.0-2.0) % Neut # (Auto) (1.8-7.0) K/uL Lymph # (Auto) (1.0-4.3) K/uL Wise # (Auto) (0.0-0.8) K/uL Eos # (Auto) (0.0-0.7) K/uL Baso # (Auto) (0.0-0.2) K/uL Sodium 140 (132-148) mmol/l Potassium 3.6 (3.6-5.0) MMOL/L Chloride 93 L (98-107) mmol/L Carbon Dioxide 42 H* (22-30) mmol/L Anion Gap 9 L (10-20) BUN 10 (7-17) mg/dl Creatinine 0.6 L (0.7-1.2) mg/dl Est GFR ( Amer) > 60 Est GFR (Non-Af Amer) > 60 POC Glucose (mg/dL) 136 H 107 (65-110) mg/dL Random Glucose 110 H (65-105) mg/dL Calcium 8.9 (8.4-10.2) mg/dL Phosphorus 3.0 (2.5-4.5) mg/dl Magnesium 1.8 (1.6-2.3) MG/DL Total Bilirubin 0.8 (0.2-1.3) mg/dl AST 27 (14-36) U/L ALT 25 (9-52) U/L Alkaline Phosphatase 50 (38-126) U/L Total Protein 5.9 L (6.3-8.2) G/DL Albumin 3.0 L (3.5-5.0) g/dL Globulin 2.9 (2.2-3.9) gm/dL Albumin/Globulin Ratio 1.0 (1.0-2.1) Vancomycin Trough (5.0-10.0) ug/mL 10/23/17 10/23/17 10/22/17 Range/Units 04:45 04:00 20:59 WBC 7.5 (4.8-10.8) K/uL RBC 3.31 L (3.80-5.20) Mil/uL Hgb 8.6 L (12.0-16.0) g/dL Hct 27.1 L (34.0-47.0) % MCV 82.0 (81.0-99.0) fl MCH 25.8 L (27.0-31.0) pg MCHC 31.5 L (33.0-37.0) g/dL RDW 17.2 H (11.5-14.5) % Plt Count 243 (130-400) K/uL MPV 8.2 (7.2-11.7) fl Neut % (Auto) 74.4 (50.0-75.0) % Lymph % (Auto) 8.1 L (20.0-40.0) % Wise % (Auto) 15.9 H (0.0-10.0) % Eos % (Auto) 1.1 (0.0-4.0) % Baso % (Auto) 0.5 (0.0-2.0) % Neut # (Auto) 5.6 (1.8-7.0) K/uL Lymph # (Auto) 0.6 L (1.0-4.3) K/uL Wise # (Auto) 1.2 H (0.0-0.8) K/uL Eos # (Auto) 0.1 (0.0-0.7) K/uL Baso # (Auto) 0.0 (0.0-0.2) K/uL Sodium (132-148) mmol/l Potassium (3.6-5.0) MMOL/L Chloride (98-107) mmol/L Carbon Dioxide (22-30) mmol/L Anion Gap (10-20) BUN (7-17) mg/dl Creatinine (0.7-1.2) mg/dl Est GFR ( Amer) Est GFR (Non-Af Amer) POC Glucose (mg/dL) 93 (65-110) mg/dL Random Glucose (65-105) mg/dL Calcium (8.4-10.2) mg/dL Phosphorus (2.5-4.5) mg/dl Magnesium (1.6-2.3) MG/DL Total Bilirubin (0.2-1.3) mg/dl AST (14-36) U/L ALT (9-52) U/L Alkaline Phosphatase (38-126) U/L Total Protein (6.3-8.2) G/DL Albumin (3.5-5.0) g/dL Globulin (2.2-3.9) gm/dL Albumin/Globulin Ratio (1.0-2.1) Vancomycin Trough 22.7 H (5.0-10.0) ug/mL 10/22/17 10/22/17 10/22/17 Range/Units 16:24 10:48 06:02 WBC (4.8-10.8) K/uL RBC (3.80-5.20) Mil/uL Hgb (12.0-16.0) g/dL Hct (34.0-47.0) % MCV (81.0-99.0) fl MCH (27.0-31.0) pg MCHC (33.0-37.0) g/dL RDW (11.5-14.5) % Plt Count (130-400) K/uL MPV (7.2-11.7) fl Neut % (Auto) (50.0-75.0) % Lymph % (Auto) (20.0-40.0) % Wise % (Auto) (0.0-10.0) % Eos % (Auto) (0.0-4.0) % Baso % (Auto) (0.0-2.0) % Neut # (Auto) (1.8-7.0) K/uL Lymph # (Auto) (1.0-4.3) K/uL Wise # (Auto) (0.0-0.8) K/uL Eos # (Auto) (0.0-0.7) K/uL Baso # (Auto) (0.0-0.2) K/uL Sodium (132-148) mmol/l Potassium (3.6-5.0) MMOL/L Chloride (98-107) mmol/L Carbon Dioxide (22-30) mmol/L Anion Gap (10-20) BUN (7-17) mg/dl Creatinine (0.7-1.2) mg/dl Est GFR ( Amer) Est GFR (Non-Af Amer) POC Glucose (mg/dL) 102 186 H 93 (65-110) mg/dL Random Glucose (65-105) mg/dL Calcium (8.4-10.2) mg/dL Phosphorus (2.5-4.5) mg/dl Magnesium (1.6-2.3) MG/DL Total Bilirubin (0.2-1.3) mg/dl AST (14-36) U/L ALT (9-52) U/L Alkaline Phosphatase (38-126) U/L Total Protein (6.3-8.2) G/DL Albumin (3.5-5.0) g/dL Globulin (2.2-3.9) gm/dL Albumin/Globulin Ratio (1.0-2.1) Vancomycin Trough (5.0-10.0) ug/mL 10/21/17 10/21/17 10/21/17 Range/Units 22:14 15:49 11:15 WBC (4.8-10.8) K/uL RBC (3.80-5.20) Mil/uL Hgb (12.0-16.0) g/dL Hct (34.0-47.0) % MCV (81.0-99.0) fl MCH (27.0-31.0) pg MCHC (33.0-37.0) g/dL RDW (11.5-14.5) % Plt Count (130-400) K/uL MPV (7.2-11.7) fl Neut % (Auto) (50.0-75.0) % Lymph % (Auto) (20.0-40.0) % Wise % (Auto) (0.0-10.0) % Eos % (Auto) (0.0-4.0) % Baso % (Auto) (0.0-2.0) % Neut # (Auto) (1.8-7.0) K/uL Lymph # (Auto) (1.0-4.3) K/uL Wise # (Auto) (0.0-0.8) K/uL Eos # (Auto) (0.0-0.7) K/uL Baso # (Auto) (0.0-0.2) K/uL Sodium (132-148) mmol/l Potassium (3.6-5.0) MMOL/L Chloride (98-107) mmol/L Carbon Dioxide (22-30) mmol/L Anion Gap (10-20) BUN (7-17) mg/dl Creatinine (0.7-1.2) mg/dl Est GFR ( Amer) Est GFR (Non-Af Amer) POC Glucose (mg/dL) 96 131 H 118 H (65-110) mg/dL Random Glucose (65-105) mg/dL Calcium (8.4-10.2) mg/dL Phosphorus (2.5-4.5) mg/dl Magnesium (1.6-2.3) MG/DL Total Bilirubin (0.2-1.3) mg/dl AST (14-36) U/L ALT (9-52) U/L Alkaline Phosphatase (38-126) U/L Total Protein (6.3-8.2) G/DL Albumin (3.5-5.0) g/dL Globulin (2.2-3.9) gm/dL Albumin/Globulin Ratio (1.0-2.1) Vancomycin Trough (5.0-10.0) ug/mL 10/21/17 Range/Units 04:15 WBC (4.8-10.8) K/uL RBC (3.80-5.20) Mil/uL Hgb (12.0-16.0) g/dL Hct (34.0-47.0) % MCV (81.0-99.0) fl MCH (27.0-31.0) pg MCHC (33.0-37.0) g/dL RDW (11.5-14.5) % Plt Count (130-400) K/uL MPV (7.2-11.7) fl Neut % (Auto) (50.0-75.0) % Lymph % (Auto) (20.0-40.0) % Wise % (Auto) (0.0-10.0) % Eos % (Auto) (0.0-4.0) % Baso % (Auto) (0.0-2.0) % Neut # (Auto) (1.8-7.0) K/uL Lymph # (Auto) (1.0-4.3) K/uL Wise # (Auto) (0.0-0.8) K/uL Eos # (Auto) (0.0-0.7) K/uL Baso # (Auto) (0.0-0.2) K/uL Sodium (132-148) mmol/l Potassium (3.6-5.0) MMOL/L Chloride (98-107) mmol/L Carbon Dioxide (22-30) mmol/L Anion Gap (10-20) BUN (7-17) mg/dl Creatinine (0.7-1.2) mg/dl Est GFR ( Amer) Est GFR (Non-Af Amer) POC Glucose (mg/dL) 118 H (65-110) mg/dL Random Glucose (65-105) mg/dL Calcium (8.4-10.2) mg/dL Phosphorus (2.5-4.5) mg/dl Magnesium (1.6-2.3) MG/DL Total Bilirubin (0.2-1.3) mg/dl AST (14-36) U/L ALT (9-52) U/L Alkaline Phosphatase (38-126) U/L Total Protein (6.3-8.2) G/DL Albumin (3.5-5.0) g/dL Globulin (2.2-3.9) gm/dL Albumin/Globulin Ratio (1.0-2.1) Vancomycin Trough (5.0-10.0) ug/mL Laboratory Results - last 24 hr 10/21/17 10/21/17 10/21/17 04:15 11:15 15:49 WBC RBC Hgb Hct MCV MCH MCHC RDW Plt Count MPV Neut % (Auto) Lymph % (Auto) Wise % (Auto) Eos % (Auto) Baso % (Auto) Neut # (Auto) Lymph # (Auto) Wise # (Auto) Eos # (Auto) Baso # (Auto) Sodium Potassium Chloride Carbon Dioxide Anion Gap BUN Creatinine Est GFR ( Amer) Est GFR (Non-Af Amer) POC Glucose (mg/dL) 118 H 118 H 131 H Random Glucose Calcium Phosphorus Magnesium Total Bilirubin AST ALT Alkaline Phosphatase Total Protein Albumin Globulin Albumin/Globulin Ratio Vancomycin Trough 10/21/17 10/22/17 10/22/17 22:14 06:02 10:48 WBC RBC Hgb Hct MCV MCH MCHC RDW Plt Count MPV Neut % (Auto) Lymph % (Auto) Wise % (Auto) Eos % (Auto) Baso % (Auto) Neut # (Auto) Lymph # (Auto) Wise # (Auto) Eos # (Auto) Baso # (Auto) Sodium Potassium Chloride Carbon Dioxide Anion Gap BUN Creatinine Est GFR ( Amer) Est GFR (Non-Af Amer) POC Glucose (mg/dL) 96 93 186 H Random Glucose Calcium Phosphorus Magnesium Total Bilirubin AST ALT Alkaline Phosphatase Total Protein Albumin Globulin Albumin/Globulin Ratio Vancomycin Trough 10/22/17 10/22/17 10/23/17 16:24 20:59 04:00 WBC 7.5 RBC 3.31 L Hgb 8.6 L Hct 27.1 L MCV 82.0 MCH 25.8 L MCHC 31.5 L RDW 17.2 H Plt Count 243 MPV 8.2 Neut % (Auto) 74.4 Lymph % (Auto) 8.1 L Wise % (Auto) 15.9 H Eos % (Auto) 1.1 Baso % (Auto) 0.5 Neut # (Auto) 5.6 Lymph # (Auto) 0.6 L Wise # (Auto) 1.2 H Eos # (Auto) 0.1 Baso # (Auto) 0.0 Sodium Potassium Chloride Carbon Dioxide Anion Gap BUN Creatinine Est GFR ( Amer) Est GFR (Non-Af Amer) POC Glucose (mg/dL) 102 93 Random Glucose Calcium Phosphorus Magnesium Total Bilirubin AST ALT Alkaline Phosphatase Total Protein Albumin Globulin Albumin/Globulin Ratio Vancomycin Trough 10/23/17 10/23/17 10/23/17 04:45 05:26 05:46 WBC RBC Hgb Hct MCV MCH MCHC RDW Plt Count MPV Neut % (Auto) Lymph % (Auto) Wise % (Auto) Eos % (Auto) Baso % (Auto) Neut # (Auto) Lymph # (Auto) Wise # (Auto) Eos # (Auto) Baso # (Auto) Sodium 140 Potassium 3.6 Chloride 93 L Carbon Dioxide 42 H* Anion Gap 9 L BUN 10 Creatinine 0.6 L Est GFR ( Amer) > 60 Est GFR (Non-Af Amer) > 60 POC Glucose (mg/dL) 107 Random Glucose 110 H Calcium 8.9 Phosphorus 3.0 Magnesium 1.8 Total Bilirubin 0.8 AST 27 ALT 25 Alkaline Phosphatase 50 Total Protein 5.9 L Albumin 3.0 L Globulin 2.9 Albumin/Globulin Ratio 1.0 Vancomycin Trough 22.7 H 10/23/17 11:21 WBC RBC Hgb Hct MCV MCH MCHC RDW Plt Count MPV Neut % (Auto) Lymph % (Auto) Wise % (Auto) Eos % (Auto) Baso % (Auto) Neut # (Auto) Lymph # (Auto) Wise # (Auto) Eos # (Auto) Baso # (Auto) Sodium Potassium Chloride Carbon Dioxide Anion Gap BUN Creatinine Est GFR ( Amer) Est GFR (Non-Af Amer) POC Glucose (mg/dL) 136 H Random Glucose Calcium Phosphorus Magnesium Total Bilirubin AST ALT Alkaline Phosphatase Total Protein Albumin Globulin Albumin/Globulin Ratio Vancomycin Trough EKG/Cardiology Studies: Cardiology / EKG Studies 10/23/17 EKG [ELECTROCARDIOGRAM] Stat Comment: Mode Of Transportation: PORTABLE Reason For Exam: ACS Fingerstick Blood Sugar Results: 136 Critical Care Progress Note - Extremities/Vascular Does the Patient have a Central Venous Catheter?: No Does the Patient need a Central Venous Catheter?: No Does the Patient have a Lama Catheter?: No Does the Patient need a Lama Catheter?: No - Nutrition Nutrition: Nutrition Category Date Time Status Heart Healthy Diet [DIET] Diets 10/18/17 Breakfast Active Assessment/Plan (1) Acute respiratory failure with hypercapnia Current Visit: Yes Status: Acute Priority: High Comment: Succesfully extubated Wean Off Fio2 Continue Nebs treatement, Atrovent 0.5 mg IH RQ6 NICOLE Continue Antibiotics Vancomycin HCl 1 gm IVBP Q12 NICOLE Piperacillin Sod/Tazobactam Sod 3.375 gm IVBP Q6 NICOLE (2) Bilateral pleural effusion Current Visit: Yes Status: Acute Priority: High Comment: S/P Placement of 8 fr pleural drainage catheter right lower chest. Pleural effusion analysis indicative of transudative effusion (3) CHF (congestive heart failure) Current Visit: Yes Status: Acute Priority: High Comment: ASA, Statins Lasix 40 mg IV DAILY Last 24H I&O 2180/2210 (4) Paroxysmal atrial fibrillation Current Visit: Yes Status: Chronic Priority: Medium Comment: HR controlled Digoxin (Lanoxin) 0.25 mg PO DAILY (5) Pulmonary hypertension Current Visit: Yes Status: Chronic Priority: Medium Comment: Probably combination of COPD, diastolic dysfunction and/or valvular heart disease. Cardiology follow up (6) Compressive atelectasis Current Visit: Yes Status: Acute Priority: Medium
[2017-10-23] MEDS: Enoxaparin 40 mg Syringe SC SCH (12:18)
--- NOTE | 2017-10-23 12:21 | CP.PCM.PN ---
<Eryn Au - Last Filed: 10/23/17 16:15> Subjective - Date & Time of Evaluation Date of Evaluation: 10/23/17 Time of Evaluation: 09:14 - Subjective Subjective: Patient seen and examined this AM with Dr. Tirso Au , PGY-1 Patient laying upright in bed. Patient eating breakfast with son present at the bedside. Patient remained afebrile throughout the night with VS stable. Pigtail catheter in place that drained 140ml overnight. Patient currently on NC 4L. Objective - Vital Signs/Intake and Output Vital Signs (last 24 hours): Temp Pulse Resp BP Pulse Ox 98.0 F 84 20 131/48 L 95 10/23/17 08:00 10/23/17 10:00 10/23/17 10:00 10/23/17 10:00 10/23/17 10:00 Intake and Output: 10/23/17 10/23/17 06:59 18:59 Intake Total 740 700 Output Total 290 645 Balance 450 55 - Medications Medications: Current Medications Acetaminophen (Tylenol 650mg/20.3ml Solution Ud) 650 mg PO Q6 PRN PRN Reason: Temperature Acetaminophen (Tylenol 650mg/20.3ml Solution Ud) 650 mg PO Q6 PRN PRN Reason: Pain, moderate (4-7) Last Admin: 10/19/17 23:15 Dose: 650 mg Aspirin (Aspirin Chewable) 81 mg PO DAILY [facility] Last Admin: 10/23/17 08:38 Dose: 81 mg Atorvastatin Calcium (Lipitor) 20 mg PO HS [facility] Last Admin: 10/22/17 21:00 Dose: 20 mg Cholecalciferol (Vitamin D) 2,000 intlu PO DAILY [facility] Last Admin: 10/23/17 08:40 Dose: 2,000 intlu Digoxin (Lanoxin) 0.25 mg PO DAILY [facility] Last Admin: 10/23/17 08:38 Dose: 0.25 mg Docusate Sodium (Colace) 100 mg PO BID PRN PRN Reason: Constipation Enoxaparin Sodium (Lovenox) 40 mg SC DAILY [facility] PRN Reason: Protocol Last Admin: 10/23/17 12:18 Dose: 40 mg Furosemide (Lasix) 40 mg IVP DAILY [facility] Last Admin: 10/23/17 08:39 Dose: 40 mg Vancomycin HCl 1 gm/ Sodium (Chloride) 250 mls @ 166.667 mls/hr IVPB Q12 NICOLE PRN Reason: Protocol Last Admin: 10/23/17 08:39 Dose: Not Given Piperacillin Sod/Tazobactam (Sod 3.375 gm/ Sodium Chloride) 100 mls @ 100 mls/ hr IVPB Q6 NICOLE PRN Reason: Protocol Last Admin: 10/23/17 09:07 Dose: 100 mls/hr Ipratropium [place] (Atrovent) 0.5 mg IH RQ6 NICOLE Last Admin: 10/23/17 07:24 Dose: 0.5 mg Multivitamins/Minerals (Therapeutic-M Tab) 1 tab PO DAILY [facility] Last Admin: 10/23/17 08:39 Dose: 1 tab Nitroglycerin (Nitro-Bid 2% Oint) 1 ea TOP Q6 [facility] Last Admin: 10/23/17 09:07 Dose: 1 ea - Labs Labs: 10/23/17 04:00 10/23/17 05:46 PT 14.1 Seconds (9.8-13.1) H 10/22/17 04:35 INR 1.3 10/22/17 04:35 APTT 27.6 Seconds (25.6-37.1) 10/18/17 04:45 - Constitutional Appears: No Acute Distress - Head Exam Head Exam: ATRAUMATIC - Eye Exam Eye Exam: EOMI - Respiratory Exam Respiratory Exam: Rales, Rhonchi - Cardiovascular Exam Cardiovascular Exam: +S1, +S2 - GI/Abdominal Exam Additional comments: soft, nontender, no rigidity - Back Exam Additional comments: No CVA tenderness - Neurological Exam Neurological Exam: Oriented x3 - Psychiatric Exam Psychiatric exam: Normal Affect, Normal Mood - Skin Skin Exam: Dry, Intact Assessment and Plan - Assessment and Plan (Free Text) Assessment: 86 y/o F with h/o CHF, pulmonary HTN, Chronic AFib & DMII who presented to ED complaining of SOB and dyspnea found to have CHF exacerbation with B/L pleura effusion. At noe time, patient's troponins were minimally elevated & patient was admitted to telemetry, then transferred to ICU since 10/17 because of lethargy. ABG performed showed severe hypercapneic. Patient was placed on Bipap , then intubated for airway protection, followed by self-extubation on 10/19 with improvement in mentation. 1. Acute Hypercapneic Respiratory Failure secondary to B/L pleural effusion, Pneumonia & CO2 retention -Patient currently on NC 4L -Repeat CT of chest performed yesterday showing cardiomegaly, multifocal infiltrates, cardiogenic pulmonary edema & increased b/l pleural effusion Repeat CXR performed 10/21 showed stable b/l pleural effusion with no appreciable pneumothorax. -Pulm team is following patient -CO2 remains elevated, but patient is stable 2. Acute CO2 Narcosis - Continue NC 4L 3. Hydropneumothorax -S/P chest tube placement -Output 140ml 4. Compressive Atelectasis -Continue empiric IV Zosyn -Vanco discontinued 5. Acute Elevated Troponin -Unlikely secondary to ischemia -Will continue ASA & Statin therapy 6. Prothrombin time increased due to coumadin -INR today 1.3 -Will continue to hold warfarin because patient has serosanginous drainage 7. Pleural Effusion likely secondary to CHF -Will discuss case with Resource Management Specialist covering for Paulina Zamora for any input on further management of b/l effusions that has re-accumulated. -Continue pigtail for drainage 8. Acute CHF exacerbation, combine systolic & dyastolic dysfunction -Will continue digoxin -Will continue Lasix PRN 9. Paroxysmal A. Fib -Will continue to hold Wafarin because of serosanginous pleural fluid & INR of 1.3 -Patient is currently rate controlled 10. HTN (controlled) 11. DM Type II -Accucheck with coverage 12. DVT prophylaxis <Gill Chahal - Last Filed: 10/23/17 17:36> Objective - Vital Signs/Intake and Output Vital Signs (last 24 hours): Temp Pulse Resp BP Pulse Ox 97.0 F L 75 16 130/53 L 95 10/23/17 16:00 10/23/17 16:25 10/23/17 16:04 10/23/17 16:25 10/23/17 16:00 Intake and Output: 10/23/17 10/23/17 06:59 18:59 Intake Total 740 1200 Output Total 290 1005 Balance 450 195 - Medications Medications: Current Medications Acetaminophen (Tylenol 650mg/20.3ml Solution Ud) 650 mg PO Q6 PRN PRN Reason: Temperature Acetaminophen (Tylenol 650mg/20.3ml Solution Ud) 650 mg PO Q6 PRN PRN Reason: Pain, moderate (4-7) Last Admin: 10/19/17 23:15 Dose: 650 mg Aspirin (Aspirin Chewable) 81 mg PO DAILY [facility] Last Admin: 10/23/17 08:38 Dose: 81 mg Atorvastatin Calcium (Lipitor) 20 mg PO HS [facility] Last Admin: 10/22/17 21:00 Dose: 20 mg Cholecalciferol (Vitamin D) 2,000 intlu PO DAILY [facility] Last Admin: 10/23/17 08:40 Dose: 2,000 intlu Digoxin (Lanoxin) 0.25 mg PO DAILY [facility] Last Admin: 10/23/17 08:38 Dose: 0.25 mg Docusate Sodium (Colace) 100 mg PO BID PRN PRN Reason: Constipation Enoxaparin Sodium (Lovenox) 40 mg SC DAILY [facility]ICO[facility] PRN Reason: Protocol Last Admin: 10/23/17 12:18 Dose: 40 mg Furosemide (Lasix) 40 mg IVP DAILY [facility] Last Admin: 10/23/17 08:39 Dose: 40 mg Vancomycin HCl 1 gm/ Sodium (Chloride) 250 mls @ 166.667 mls/hr IVPB Q12 [facility]ICO[facility] PRN Reason: Protocol Last Admin: 10/23/17 08:39 Dose: Not Given Piperacillin Sod/Tazobactam (Sod 3.375 gm/ Sodium Chloride) 100 mls @ 100 mls/ hr IVPB Q6 NICOLE PRN Reason: Protocol Last Admin: 10/23/17 16:25 Dose: 100 mls/hr Ipratropium [place] (Atrovent) 0.5 mg IH RQ6 [facility] Last Admin: 10/23/17 07:24 Dose: 0.5 mg Multivitamins/Minerals (Therapeutic-M Tab) 1 tab PO DAILY [facility] Last Admin: 10/23/17 08:39 Dose: 1 tab Nitroglycerin (Nitro-Bid 2% Oint) 1 ea TOP Q6 [facility] Last Admin: 10/23/17 16:25 Dose: 1 ea - Labs Labs: 10/23/17 04:00 10/23/17 05:46 PT 14.1 Seconds (9.8-13.1) H 10/22/17 04:35 INR 1.3 10/22/17 04:35 APTT 27.6 Seconds (25.6-37.1) 10/18/17 04:45 Assessment and Plan (1) Acute respiratory failure with hypercapnia Status: Acute (2) CO2 narcosis Status: Acute (3) Compressive atelectasis Status: Acute (4) Elevated troponin Status: Acute (5) Prothrombin time increased due to coumadin Status: Acute (6) Pleural effusion Status: Acute (7) CHF (congestive heart failure) Status: Acute (8) Paroxysmal atrial fibrillation Status: Chronic (9) HTN (hypertension) Status: Acute Attending/Attestation - Attestation I have personally seen and examined this patient.: Yes I have fully participated in the care of the patient.: Yes I have reviewed all pertinent clinical information, including history, physical exam and plan: Yes
--- NOTE | 2017-10-23 15:58 | CARD ---
APPROVED REPORT Date of service: 10/23/2017 EKG Measurement Heart [id number] <Conclusion> Atrial fibrillation with premature ventricular or aberrantly conducted complexes and with ventricular escape complexes Right bundle branch block T wave abnormality, consider inferolateral ischemia Abnormal ECG
[2017-10-24] MEDS: Ipratropium 0.02% Inhal Soln (0.5 mg/2.5 ml) UD IH SCH ×3 (01:00→18:59)
[2017-10-24] MEDS: Nitroglycerin 2% Ointment Foilpak UD TOP SCH ×4 (03:55→21:29)
[2017-10-24 05:45] LABS: HEMOGLOBIN 8.7 g/dL (12.0-16.0); MEAN CELL VOLUME 81.2 fl (81.0-99.0); MEAN CORPUSCULAR HEMOGLOBIN 25.8 pg (27.0-31.0); MEAN CORPUSCULAR HGB CONC 31.8 g/dL (33.0-37.0); RBC 3.35 Mil/uL (3.80-5.20); RED CELL DISTRIBUTION WIDTH 17.7 % (11.5-14.5); WHITE BLOOD COUNT 8.5 K/uL (4.8-10.8)
[2017-10-24 07:07] LABS: BLOOD UREA NITROGEN 12 mg/dl (7-17); CALCIUM 9.1 mg/dL (8.4-10.2); GFR AFRICAN-AMERICAN > 60; GFR NON-AFRICAN AMERICAN > 60
--- NOTE | 2017-10-24 08:55 | RAD ---
Date of service: 10/24/2017 PROCEDURE: CHEST RADIOGRAPH, 1 VIEW HISTORY: Pleural effusion COMPARISON: 10/23/2017 FINDINGS: LUNGS: Moderate right pleural effusion. Minimal left pleural effusion -both similar. Inferior right hemithoracic consolidation -slightly increased. Probable bibasilar compressive atelectasis -similar. PLEURA: No pneumothorax. Pleural effusions as above. Right costophrenic angle pigtail catheter -similar position. CARDIOVASCULAR: Moderate cardiomegaly- similar. Pulmonary venous congestion asymmetrically prominent right side-yet similar appearing OSSEOUS STRUCTURES: No significant abnormalities. VISUALIZED UPPER ABDOMEN: Normal. OTHER FINDINGS: None. IMPRESSION: Similar findings as stated above. Some slightly greater homogeneous opacity/consolidation in the inferior right kacey thorax compared to 10/23/2017 suggested. Other findings similar
--- NOTE | 2017-10-24 09:15 | CP.PCM.PN ---
Subjective - Date & Time of Evaluation Date of Evaluation: 10/24/17 Time of Evaluation: 09:13 - Subjective Subjective: Case discussed this AM with Dr. Doug Rodriguez , PGY-1 Patient awake in bed with son present at the bedside. Patient appetite slightly improved from yesterday. Denied any shortness of breath. Patient afebrile (98.1F), on 4L of NC with spo2 of 93, BP- 142/55, RR-16 Pulse- 75. Midaxillary chest tube in place that drained 10ml overnight. Lama drained 1315ml last night. Patient would like to be OOB to chair & physical therapy. Objective - Vital Signs/Intake and Output Vital Signs (last 24 hours): Temp Pulse Resp BP Pulse Ox 98.1 F 73 21 138/58 L 93 L 10/24/17 08:00 10/24/17 08:00 10/24/17 08:00 10/24/17 08:00 10/24/17 08:00 Intake and Output: 10/24/17 10/24/17 06:59 18:59 Intake Total 55 Output Total 260 Balance -205 - Medications Medications: Current Medications Acetaminophen (Tylenol 650mg/20.3ml Solution Ud) 650 mg PO Q6 PRN PRN Reason: Temperature Acetaminophen (Tylenol 650mg/20.3ml Solution Ud) 650 mg PO Q6 PRN PRN Reason: Pain, moderate (4-7) Last Admin: 10/19/17 23:15 Dose: 650 mg Aspirin (Aspirin Chewable) 81 mg PO DAILY [facility] Last Admin: 10/23/17 08:38 Dose: 81 mg Atorvastatin Calcium (Lipitor) 20 mg PO HS [facility] Last Admin: 10/23/17 21:27 Dose: 20 mg Cholecalciferol (Vitamin D) 2,000 intlu PO DAILY [facility] Last Admin: 10/23/17 08:40 Dose: 2,000 intlu Digoxin (Lanoxin) 0.25 mg PO DAILY [facility] Last Admin: 10/23/17 08:38 Dose: 0.25 mg Docusate Sodium (Colace) 100 mg PO BID PRN PRN Reason: Constipation Enoxaparin Sodium (Lovenox) 40 mg SC DAILY [facility]ICOLE PRN Reason: Protocol Last Admin: 10/23/17 12:18 Dose: 40 mg Furosemide (Lasix) 40 mg IVP DAILY [facility] Last Admin: 10/23/17 08:39 Dose: 40 mg Piperacillin Sod/Tazobactam (Sod 3.375 gm/ Sodium Chloride) 100 mls @ 100 mls/ hr IVPB Q6 [facility]ICOLE PRN Reason: Protocol Stop: 10/27/17 23:59 Ipratropium [place] (Atrovent) 0.5 mg IH RQ6 [facility]ICO[facility] Last Admin: 10/24/17 07:40 Dose: 0.5 mg Multivitamins/Minerals (Therapeutic-M Tab) 1 tab PO DAILY [facility] Last Admin: 10/23/17 08:39 Dose: 1 tab Nitroglycerin (Nitro-Bid 2% Oint) 1 ea TOP Q6 [facility] Last Admin: 10/24/17 03:55 Dose: 1 ea - Labs Labs: 10/24/17 04:30 10/24/17 04:30 PT 14.1 Seconds (9.8-13.1) H 10/22/17 04:35 INR 1.3 10/22/17 04:35 APTT 27.6 Seconds (25.6-37.1) 10/18/17 04:45 - Constitutional Appears: No Acute Distress - Head Exam Head Exam: ATRAUMATIC - Eye Exam Eye Exam: Normal appearance - Respiratory Exam Additional comments: pigtail catheter in place draining serosanguineous fluid - Cardiovascular Exam Cardiovascular Exam: +S1, +S2 - GI/Abdominal Exam GI & Abdominal Exam: Soft Additional comments: nontender, no rigidity, no guarding - Neurological Exam Neurological Exam: Oriented x3 - Psychiatric Exam Psychiatric exam: Normal Affect - Skin Skin Exam: Dry, Intact Assessment and Plan - Assessment and Plan (Free Text) Assessment: 86 y/o F with h/o CHF, pulmonary HTN, Chronic AFib & DMII who presented to ED with complaints of shortness of breath was found to have CHF exacerbation with B /L pleura effusion. Patient's troponins were minimally elevated at that time. Patient was admitted to telemetry, and on 10/17, transferred to ICU because of somnolence. ABG was performed, and showed severe hypercapnia. Patient was placed on Bipap, then intubated for airway protection, and then self-extubation on 10/19 with improved mentation. 1. Acute Hypercapneic Respiratory Failure secondary to B/L pleural effusion, Pneumonia & CO2 retention -Continue NC 4L -Repeat CXR performed 10/24 showed stable b/l pleural effusion with no appreciable pneumothorax. -Repeat CT of chest performed 10/22/2017 showed cardiomegaly, multifocal infiltrates, cardiogenic pulmonary edema & increased b/l pleural effusion -Pulm team is following patient -CO2 remains elevated, but patient is stable 2. Acute CO2 Narcosis - Continue NC 4L 3. Hydropneumothorax -S/P chest tube placement -Output 10ml overnight -chest tube can be removed 4. Compressive Atelectasis -Continue empiric IV Zosyn -Vanco discontinued 5. Acute Elevated Troponin -Unlikely secondary to ischemia -Will continue ASA & Statin therapy 6. Prothrombin time increased due to coumadin -INR 1.3 (10/22/2017) -Will continue to hold warfarin 7. Pleural Effusion likely secondary to CHF -Awaiting any input from Balance Assembler regarding further management of b/l effusions that has re-accumulated. -chest tube can be removed 8. Acute CHF exacerbation, combine systolic & dyastolic dysfunction -Will continue digoxin -Will continue Lasix PRN 9. Paroxysmal A. Fib -Will continue to hold [place] -Patient is currently rate controlled 10. HTN (controlled) 11. DM Type II -Accucheck with coverage 12. DVT prophylaxis -on Lovenox 40mg sc
[2017-10-24] MEDS: Digoxin 250 mcg (0.25 mg) Tab PO SCH (09:51)
[2017-10-24] MEDS: Multivitamin With Minerals Tab PO SCH (09:53)
[2017-10-24] MEDS: Enoxaparin 40 mg Syringe SC SCH (09:53)
[2017-10-24] MEDS: Cholecalciferol 1,000 INTLU TAB PO SCH (09:54)
--- NOTE | 2017-10-24 09:56 | CT ---
PROCEDURE: Date of procedure: 10/17/2017 Procedure: 1. Placement of a right chest tube with ultrasound guidance Medications: 6cc 1 percent lidocaine HISTORY: Right hydro pneumothorax TECHNIQUE: Following informed consent and procedure time-out, the patient's right chest was marked, prepped and draped in the usual sterile fashion. Ultrasound showed a moderate pleural effusion. After the skin was anesthetized with 1% lidocaine and the pt, a Mcmullen catheter was advanced under ultrasound guidance into the pleural space. The catheter was exchanged over an 035 guidewire and tract was dilated to accommodate a 8 [place] pigtail catheter formed within the pleural space. There is return of slight serosanguinous fluid. The catheter was secured to patient's skin. A xeroform dressing was applied. The catheter was then attached to a pleurovac. Postprocedure x-ray showed a right chest tube. IMPRESSION: Placement of an 8 Ukrainian right chest tube. There were no immediate complications.
--- NOTE | 2017-10-24 11:21 | CP.PCM.PN ---
Subjective - Date & Time of Evaluation Date of Evaluation: 10/24/17 Time of Evaluation: 10:00 - Subjective Subjective: Pt seen resting in bed Son at bedside Seen with Dr Richardson right chest catheter is occluded will be removed today and watch for accumulation of pleural effusion Explained to son the cardiac koch pt is on maximal meds for her CHF also explained that she has Moderate - Severe Aortic Stenosis / Reguritation; Moderate - Severe Mitral Stenosis / regurgitation along with Chronic Atrial Fibrillation Objective - Vital Signs/Intake and Output Vital Signs (last 24 hours): Temp Pulse Resp BP Pulse Ox 98.1 F 68 21 151/61 H 93 L 10/24/17 08:00 10/24/17 09:57 10/24/17 08:00 10/24/17 09:57 10/24/17 08:00 Intake and Output: 10/24/17 10/24/17 06:59 18:59 Intake Total 55 Output Total 260 Balance -205 - Medications Medications: Current Medications Acetaminophen (Tylenol 650mg/20.3ml Solution Ud) 650 mg PO Q6 PRN PRN Reason: Temperature Acetaminophen (Tylenol 650mg/20.3ml Solution Ud) 650 mg PO Q6 PRN PRN Reason: Pain, moderate (4-7) Last Admin: 10/19/17 23:15 Dose: 650 mg Aspirin (Aspirin Chewable) 81 mg PO DAILY [facility] Last Admin: 10/24/17 09:51 Dose: 81 mg Atorvastatin Calcium (Lipitor) 20 mg PO HS [facility] Last Admin: 10/23/17 21:27 Dose: 20 mg Cholecalciferol (Vitamin D) 2,000 intlu PO DAILY [facility] Last Admin: 10/24/17 09:54 Dose: 2,000 intlu Digoxin (Lanoxin) 0.25 mg PO DAILY [facility] Last Admin: 10/24/17 09:51 Dose: 0.25 mg Docusate Sodium (Colace) 100 mg PO BID PRN PRN Reason: Constipation Enoxaparin Sodium (Lovenox) 40 mg SC DAILY [facility] PRN Reason: Protocol Last Admin: 10/24/17 09:53 Dose: 40 mg Furosemide (Lasix) 40 mg IVP DAILY [facility] Last Admin: 10/24/17 09:51 Dose: 40 mg Piperacillin Sod/Tazobactam (Sod 3.375 gm/ Sodium Chloride) 100 mls @ 100 mls/ hr IVPB Q6 [facility] PRN Reason: Protocol Stop: 10/27/17 23:59 Ipratropium [place] (Atrovent) 0.5 mg IH RQ6 [facility] Last Admin: 10/24/17 07:40 Dose: 0.5 mg Multivitamins/Minerals (Therapeutic-M Tab) 1 tab PO DAILY [facility] Last Admin: 10/24/17 09:53 Dose: 1 tab Nitroglycerin (Nitro-Bid 2% Oint) 1 ea TOP Q6 [facility] Last Admin: 10/24/17 09:57 Dose: 1 ea - Labs Labs: 10/24/17 04:30 10/24/17 04:30 PT 14.1 Seconds (9.8-13.1) H 10/22/17 04:35 INR 1.3 10/22/17 04:35 APTT 27.6 Seconds (25.6-37.1) 10/18/17 04:45 Assessment and Plan (1) Acute on chronic systolic congestive heart failure Assessment & Plan: Pt is on appropriate meds Status: Acute (2) Pulmonary hypertension Status: Chronic (3) Bilateral pleural effusion Assessment & Plan: will continue to monitor Status: Acute (4) Atrial fibrillation Status: Acute
--- NOTE | 2017-10-24 11:42 | CP.CCUPN ---
CCU Subjective - Physician Review Subjective (Free Text): 10/24/17 11:28 The patient was Seen/interviewed and examined by me at the bedside, Son at the bedside Medical records reviewed and Management issues were discussed and formulated with the house staff. Events reviewed 86 Years old Female with PMHx of HTN, DM type 2, CHF, Atrial Fibrillation, moderate/severe aortic stenosis, moderate aortic regurgitation; severe mitral stenosis, moderate mitral regurgitation and severe pulmonary hypertension Patient admitted with Acute, Hypercapneic respiratory failure secondary to Pneumonia with B/L pleural effusion Extubated 10/18, underwent Placement of 8 fr pleural drainage catheter right lower chest. doing well with improvement of respiratory status, initially requiring BIPAP now on HFNC Fio.40% alternating with nasal cannula with nocturnal BIPAP This morning she feels well and is hemodynamically stable, No Vasopressors Pt Alert, follows some commands denies any chest pain or SOB Afebrile Saturation 95-98% on 4L NC, will taper off FIO2 Refused BIPAP last night Chest tube output only 10/last 24H, probably is occluded, Pul attempted to flush catheter but unsuccessful. Last 24H I&O 1705/1325 CCU Objective - Vital Signs / Intake & Output Vital Signs (Last 4 hours): Vital Signs Temp Pulse Resp BP Pulse Ox 10/24/17 09:57 68 151/61 H 10/24/17 09:51 151/61 H 10/24/17 08:00 98.1 F 73 21 138/58 L 93 L Intake and Output (Last 8hrs): Intake & Output 10/23/17 10/24/17 10/24/17 22:59 06:59 14:59 Intake Total 489 16 Output Total 120 260 Balance 369 -244 Weight 97 lb 6.4 oz Intake: IV 14 16 Oral 475 Output: Chest Tube Drainage 10 Right Mid-Axillary Chest 10 Urine 120 250 Urethral (Lama) 120 250 Other: # Bowel Movements 1 - Physical Exam Head: Positive for: Atraumatic, Normocephalic Pupils: Positive for: PERRL Extroacular Muscles: Positive for: EOMI Conjunctiva: Positive for: Normal Mouth: Positive for: Moist Mucous Membranes Neck: Positive for: Normal Range of Motion, Trachea Midline. Negative for: Meningeal Signs, MIDLINE TENDERNESS, Paraspinal Tenderness, JVD, Lymphadenopathy , Bruit, Other Respiratory/Chest: Positive for: Decreased Breath Sounds, Rales, Rhonchi. Negative for: Clear to Auscultation, Respiratory Distress, Accessory Muscle Use , Wheezes Cardiovascular: Positive for: Regular Rate and Rhythm, Normal S1, S2, Peripheal Pulses Present. Negative for: Murmurs, Irregular Rhythm Abdomen: Positive for: Normal Bowel Sounds. Negative for: Tenderness, Distention Back: Negative for: Normal Inspection, CVA Tenderness Psychiatric: Positive for: Alert, Oriented x 3 - Medications Active Medications: Active Medications Generic Name Dose Route Start Last Admin Trade Name Freq PRN Reason Stop Dose Admin Acetaminophen 650 mg 10/17/17 13:44 Tylenol 650mg/20.3ml Solution Ud PO Q6 PRN Temperature Acetaminophen 650 mg 10/19/17 23:26 10/19/17 23:15 Tylenol 650mg/20.3ml Solution Ud PO 650 mg Q6 PRN Administration Pain, moderate (4-7) Aspirin 81 mg 10/17/17 09:00 10/24/17 09:51 Aspirin Chewable PO 81 mg DAILY NICOLE Administration Atorvastatin Calcium 20 mg 10/15/17 22:00 10/23/17 21:27 Lipitor PO 20 mg HS NICOLE Administration Cholecalciferol 2,000 intlu 10/16/17 09:00 10/24/17 09:54 Vitamin D PO 2,000 intlu DAILY NICOLE Administration Digoxin 0.25 mg 10/17/17 09:00 10/24/17 09:51 Lanoxin PO 0.25 mg DAILY NICOLE Administration Docusate Sodium 100 mg 10/15/17 17:50 Colace PO BID PRN Constipation Enoxaparin Sodium 40 mg 10/23/17 09:00 10/24/17 09:53 Lovenox SC 40 mg DAILY NICO[facility] Administration Protocol Furosemide 40 mg 10/17/17 09:00 10/24/17 09:51 Lasix IVP 40 mg DAILY [facility]ICO[facility] Administration Piperacillin Sod/Tazobactam 100 mls @ 100 mls/hr 10/24/17 10:00 Sod 3.375 gm/ Sodium Chloride IVPB 10/27/17 23:59 Q6 NICOLE Protocol Ipratropium [place] 0.5 mg 10/21/17 14:00 10/24/17 07:40 Atrovent IH 0.5 mg RQ6 NICOLE Administration Multivitamins/Minerals 1 tab 10/16/17 09:00 10/24/17 09:53 Therapeutic-M Tab PO 1 tab DAILY [facility]ICO[facility] Administration Nitroglycerin 1 ea 10/16/17 16:30 10/24/17 09:57 Nitro-Bid 2% Oint TOP 1 ea Q6 NICOLE Administration - Patient Studies Lab Studies: Microbiology Studies 10/17/17 14:57 Gram Stain - Final Body Fluid - Lung-Left Body Fluid Culture - Final Coagulase Neg Staphylococcus Lab Studies 10/24/17 10/24/17 10/24/17 Range/Units 05:31 04:30 04:30 WBC 8.5 (4.8-10.8) K/uL RBC 3.35 L (3.80-5.20) Mil/uL Hgb 8.7 L (12.0-16.0) g/dL Hct 27.2 L (34.0-47.0) % MCV 81.2 (81.0-99.0) fl MCH 25.8 L (27.0-31.0) pg MCHC 31.8 L (33.0-37.0) g/dL RDW 17.7 H (11.5-14.5) % Plt Count 277 (130-400) K/uL Sodium 140 (132-148) mmol/l Potassium 3.4 L (3.6-5.0) MMOL/L Chloride 93 L (98-107) mmol/L Carbon Dioxide 44 H* (22-30) mmol/L Anion Gap 6 L (10-20) BUN 12 (7-17) mg/dl Creatinine 0.5 L (0.7-1.2) mg/dl Est GFR ( Amer) > 60 Est GFR (Non-Af Amer) > 60 POC Glucose (mg/dL) 100 (65-110) mg/dL Random Glucose 104 (65-105) mg/dL Calcium 9.1 (8.4-10.2) mg/dL TB Test (QFT) Nil IU/mL TB Test Mitogen - Nil IU/mL TB Test TB - Nil IU/mL TB Test (QFT) (Negative) 10/23/17 10/23/17 10/23/17 Range/Units 21:04 16:50 11:21 WBC (4.8-10.8) K/uL RBC (3.80-5.20) Mil/uL Hgb (12.0-16.0) g/dL Hct (34.0-47.0) % MCV (81.0-99.0) fl MCH (27.0-31.0) pg MCHC (33.0-37.0) g/dL RDW (11.5-14.5) % Plt Count (130-400) K/uL Sodium (132-148) mmol/l Potassium (3.6-5.0) MMOL/L Chloride (98-107) mmol/L Carbon Dioxide (22-30) mmol/L Anion Gap (10-20) BUN (7-17) mg/dl Creatinine (0.7-1.2) mg/dl Est GFR ( Amer) Est GFR (Non-Af Amer) POC Glucose (mg/dL) 127 H 138 H 136 H (65-110) mg/dL Random Glucose (65-105) mg/dL Calcium (8.4-10.2) mg/dL TB Test (QFT) Nil IU/mL TB Test Mitogen - Nil IU/mL TB Test TB - Nil IU/mL TB Test (QFT) (Negative) 10/22/17 Range/Units 11:16 WBC (4.8-10.8) K/uL RBC (3.80-5.20) Mil/uL Hgb (12.0-16.0) g/dL Hct (34.0-47.0) % MCV (81.0-99.0) fl MCH (27.0-31.0) pg MCHC (33.0-37.0) g/dL RDW (11.5-14.5) % Plt Count (130-400) K/uL Sodium (132-148) mmol/l Potassium (3.6-5.0) MMOL/L Chloride (98-107) mmol/L Carbon Dioxide (22-30) mmol/L Anion Gap (10-20) BUN (7-17) mg/dl Creatinine (0.7-1.2) mg/dl Est GFR ( Amer) Est GFR (Non-Af Amer) POC Glucose (mg/dL) (65-110) mg/dL Random Glucose (65-105) mg/dL Calcium (8.4-10.2) mg/dL TB Test (QFT) Nil 0.03 IU/mL TB Test Mitogen - Nil 0.27 IU/mL TB Test TB - Nil 0.02 IU/mL TB Test (QFT) Indeterminate H (Negative) Laboratory Results - last 24 hr 10/22/17 10/23/17 10/23/17 11:16 11:21 16:50 WBC RBC Hgb Hct MCV MCH MCHC RDW Plt Count Sodium Potassium Chloride Carbon Dioxide Anion Gap BUN Creatinine Est GFR ( Amer) Est GFR (Non-Af Amer) POC Glucose (mg/dL) 136 H 138 H Random Glucose Calcium TB Test (QFT) Nil 0.03 TB Test Mitogen - Nil 0.27 TB Test TB - Nil 0.02 TB Test (QFT) Indeterminate H 10/23/17 10/24/17 10/24/17 21:04 04:30 04:30 WBC 8.5 RBC 3.35 L Hgb 8.7 L Hct 27.2 L MCV 81.2 MCH 25.8 L MCHC 31.8 L RDW 17.7 H Plt Count 277 Sodium 140 Potassium 3.4 L Chloride 93 L Carbon Dioxide 44 H* Anion Gap 6 L BUN 12 Creatinine 0.5 L Est GFR ( Amer) > 60 Est GFR (Non-Af Amer) > 60 POC Glucose (mg/dL) 127 H Random Glucose 104 Calcium 9.1 TB Test (QFT) Nil TB Test Mitogen - Nil TB Test TB - Nil TB Test (QFT) 10/24/17 05:31 WBC RBC Hgb Hct MCV MCH MCHC RDW Plt Count Sodium Potassium Chloride Carbon Dioxide Anion Gap BUN Creatinine Est GFR ( Amer) Est GFR (Non-Af Amer) POC Glucose (mg/dL) 100 Random Glucose Calcium TB Test (QFT) Nil TB Test Mitogen - Nil TB Test TB - Nil TB Test (QFT) Fingerstick Blood Sugar Results: 100 Critical Care Progress Note - Extremities/Vascular Does the Patient have a Central Venous Catheter?: No Does the Patient need a Central Venous Catheter?: No Does the Patient have a Lama Catheter?: No Does the Patient need a Lama Catheter?: No - Nutrition Nutrition: Nutrition Category Date Time Status Heart Healthy Diet [DIET] Diets 10/18/17 Breakfast Active Assessment/Plan (1) Acute respiratory failure with hypercapnia Current Visit: Yes Status: Acute Priority: High Comment: Succesfully extubated Wean Off Fio2 Continue Nebs treatement, Atrovent 0.5 mg IH RQ6 NICOLE Continue Antibiotics Vancomycin HCl 1 gm IVBP Q12 NICOLE Piperacillin Sod/Tazobactam Sod 3.375 gm IVBP Q6 NICOLE (2) Bilateral pleural effusion Current Visit: Yes Status: Acute Priority: High Comment: S/P Placement of 8 fr pleural drainage catheter right lower chest. Pleural effusion analysis indicative of transudative effusion (3) CHF (congestive heart failure) Current Visit: Yes Status: Acute Priority: High Comment: ASA, Statins Lasix 40 mg IV DAILY Strict 24H I&O Cardiology eval appretiated (4) Paroxysmal atrial fibrillation Current Visit: Yes Status: Chronic Priority: Medium Comment: HR controlled Continue ASA and lovenox Digoxin (Lanoxin) 0.25 mg PO DAILY (5) Pulmonary hypertension Current Visit: Yes Status: Chronic Priority: Medium Comment: Probably combination of COPD, diastolic dysfunction and mostly from valvular heart disease. Cardiology follow up (6) Compressive atelectasis Current Visit: Yes Status: Acute Priority: Medium
[2017-10-24] MEDS: Piperacillin/Tazobact 3.375 GM in Sodium Chloride 0.9% 100 ML IVPB SCH ×3 (11:58→21:29)
--- NOTE | 2017-10-24 12:29 | CP.PCM.PN ---
<Jose Mejia - Last Filed: 10/24/17 21:49> Subjective - Date & Time of Evaluation Date of Evaluation: 10/24/17 Time of Evaluation: 08:00 - Subjective Subjective: Patient seen and evaluated in ICU during morning rounds. Reports sleeping on and off last night. Currently on NC 3L. Denies any SOB at rest. Reports cough but unable to expectorate. Diarrhea x 3. Still no improvement in diarrhea. Vancomycin on hold. Pigtail catheter drained about 10 cc overnight. Vitals stable, afebrile 97.7, BP 129/70 CT scan showed asymmetric cardiogenic edema with increasing bilateral pleural effusions. Pt still hypercapnic CO2 44. Hg 8.6. On Physical exam, diminished breath sounds heard B/L with few sonorous rhonchi. No audible wheezes no bronchial breath sounds. No dependent edema. Pigtail catheter nonfunctional, Tried saline infusion through pigtail without improvement. Needs to be removed. Will consult Dr. Reeder to for removal of occluded pigtail catheter. Cardiology consult on board. Cardiopulmonary etiologies discussed with Dr. Reese. Prognosis appears poor with severe valvular heart disease and pulmonary hypertension-group II. CXR and CT reviewed consistent with bilateral pleural effusion unchanged from previous. C/W medical management. Will monitor pleural effusion. Objective - Vital Signs/Intake and Output Vital Signs (last 24 hours): Temp Pulse Resp BP Pulse Ox 98.4 F 70 23 141/56 L 95 10/24/17 12:00 10/24/17 12:00 10/24/17 12:00 10/24/17 12:00 10/24/17 12:00 Intake and Output: 10/24/17 10/24/17 06:59 18:59 Intake Total 55 200 Output Total 260 Balance -205 200 - Medications Medications: Current Medications Acetaminophen (Tylenol 650mg/20.3ml Solution Ud) 650 mg PO Q6 PRN PRN Reason: Temperature Acetaminophen (Tylenol 650mg/20.3ml Solution Ud) 650 mg PO Q6 PRN PRN Reason: Pain, moderate (4-7) Last Admin: 10/19/17 23:15 Dose: 650 mg Aspirin (Aspirin Chewable) 81 mg PO DAILY [facility] Last Admin: 10/24/17 09:51 Dose: 81 mg Atorvastatin Calcium (Lipitor) 20 mg PO HS [facility] Last Admin: 10/23/17 21:27 Dose: 20 mg Cholecalciferol (Vitamin D) 2,000 intlu PO DAILY [facility] Last Admin: 10/24/17 09:54 Dose: 2,000 intlu Digoxin (Lanoxin) 0.25 mg PO DAILY [facility] Last Admin: 10/24/17 09:51 Dose: 0.25 mg Docusate Sodium (Colace) 100 mg PO BID PRN PRN Reason: Constipation Enoxaparin Sodium (Lovenox) 40 mg SC DAILY [facility]ICOLE PRN Reason: Protocol Last Admin: 10/24/17 09:53 Dose: 40 mg Furosemide (Lasix) 40 mg IVP DAILY [facility] Last Admin: 10/24/17 09:51 Dose: 40 mg Piperacillin Sod/Tazobactam (Sod 3.375 gm/ Sodium Chloride) 100 mls @ 100 mls/ hr IVPB Q6 [facility]ICO[facility] PRN Reason: Protocol Stop: 10/27/17 23:59 Last Admin: 10/24/17 11:58 Dose: 100 mls/hr Ipratropium [place] (Atrovent) 0.5 mg IH RQ6 [facility] Last Admin: 10/24/17 07:40 Dose: 0.5 mg Multivitamins/Minerals (Therapeutic-M Tab) 1 tab PO DAILY [facility] Last Admin: 10/24/17 09:53 Dose: 1 tab Nitroglycerin (Nitro-Bid 2% Oint) 1 ea TOP Q6 [facility] Last Admin: 10/24/17 09:57 Dose: 1 ea - Labs Labs: 10/24/17 04:30 10/24/17 04:30 PT 14.1 Seconds (9.8-13.1) H 10/22/17 04:35 INR 1.3 10/22/17 04:35 APTT 27.6 Seconds (25.6-37.1) 10/18/17 04:45 <Tu Richardson - Last Filed: 10/27/17 12:01> Subjective - Subjective Subjective: Seen and examined together with the residents on rounds. Physical findings were discussed and any ancillary studies reviewed. The case was discussed and a medical assessment and plan of care was formulated. The entry made in the EMR was reviewed and accurately reflects today's encounter. Objective - Vital Signs/Intake and Output Vital Signs (last 24 hours): Temp Pulse Resp BP Pulse Ox 97.4 F L 86 18 144/76 97 10/27/17 09:00 10/27/17 10:03 10/27/17 09:00 10/27/17 10:03 10/27/17 09:00 Intake and Output: 10/26/17 10/27/17 23:59 11:59 Intake Total 124 0 Output Total 375 Balance -251 0 - Medications Medications: Current Medications Acetaminophen (Tylenol 650mg/20.3ml Solution Ud) 650 mg PO Q6 PRN PRN Reason: Temperature Acetaminophen (Tylenol 650mg/20.3ml Solution Ud) 650 mg PO Q6 PRN PRN Reason: Pain, moderate (4-7) Last Admin: 10/19/17 23:15 Dose: 650 mg Acetazolamide (Diamox 500 Mg Inj) 500 mg IV Q12 [facility] Last Admin: 10/27/17 11:08 Dose: 500 mg Aspirin (Aspirin Chewable) 81 mg PO DAILY [facility] Last Admin: 10/26/17 09:24 Dose: Not Given Atorvastatin Calcium (Lipitor) 20 mg PO HS [facility] Last Admin: 10/26/17 22:05 Dose: 20 mg Cholecalciferol (Vitamin D) 2,000 intlu PO DAILY [facility] Last Admin: 10/27/17 10:00 Dose: 2,000 intlu Digoxin (Lanoxin) 0.25 mg PO DAILY [facility] Last Admin: 10/27/17 10:33 Dose: 0.25 mg Docusate Sodium (Colace) 100 mg PO BID PRN PRN Reason: Constipation Enoxaparin Sodium (Lovenox) 40 mg SC DAILY NICOLE PRN Reason: Protocol Last Admin: 10/26/17 09:25 Dose: Not Given Ipratropium [place] (Atrovent) 0.5 mg IH RQ6 PRN PRN Reason: Wheezing Multivitamins/Minerals (Therapeutic-M Tab) 1 tab PO DAILY [facility] Last Admin: 10/27/17 10:00 Dose: 1 tab Nitroglycerin (Nitro-Bid 2% Oint) 1 ea TOP Q6 [facility] Last Admin: 10/27/17 10:03 Dose: 1 ea - Labs Labs: 10/27/17 06:27 10/27/17 06:27 PT 14.1 Seconds (9.8-13.1) H 10/22/17 04:35 INR 1.3 10/22/17 04:35 APTT 27.6 Seconds (25.6-37.1) 10/18/17 04:45 Assessment and Plan (1) Bilateral pleural effusion Status: Acute (2) Pulmonary hypertension Status: Chronic (3) Acute respiratory failure with hypercapnia Status: Acute
--- NOTE | 2017-10-24 15:30 | RAD ---
Date of service: 10/24/2017 PROCEDURE: CHEST RADIOGRAPH, 1 VIEW HISTORY: s/p pigtail catheter removed COMPARISON: 10/24/2017 at 0 8 19 hours FINDINGS: LUNGS: The inferior right hemithoracic consolidation is similar. Bibasilar compressive atelectasis is inferred. Concomitant right basal infiltrate not excluded. PLEURA: The moderate right and minimal left pleural effusions status is similar. No pneumothorax Right basal pigtail catheter removed CARDIOVASCULAR: Cardiomegaly as before. Asymmetrically prominent right pulmonary venous congestion -similar-appearing OSSEOUS STRUCTURES: No significant abnormalities. VISUALIZED UPPER ABDOMEN: Normal. OTHER FINDINGS: None. IMPRESSION: Interval removal of the right basal pigtail catheter. No pneumothorax appreciated. Bilateral pleural effusions -similar-appearing right inferior hemithoracic opacity - compressive atelectasis with or without infiltrate -similar-appearing Pulmonary venous congestion asymmetric on the right similar-appearing
[2017-10-24] MEDS ORDERED: Potassium Chloride 20 mEq ER Tab PO ONE (17:33)
[2017-10-24] MEDS ORDERED: Potassium Chloride 20 mEq/15 ml LIQ UD PO ONE (17:48)
[2017-10-25] MEDS: Ipratropium 0.02% Inhal Soln (0.5 mg/2.5 ml) UD IH SCH ×4 (01:00→19:09)
[2017-10-25] MEDS: Piperacillin/Tazobact 3.375 GM in Sodium Chloride 0.9% 100 ML IVPB SCH ×3 (04:17→16:10)
[2017-10-25] MEDS: Nitroglycerin 2% Ointment Foilpak UD TOP SCH ×4 (04:17→21:18)
[2017-10-25 05:00] LABS: HEMOGLOBIN 8.5 g/dL (12.0-16.0); MEAN CELL VOLUME 81.3 fl (81.0-99.0); MEAN CORPUSCULAR HEMOGLOBIN 26.2 pg (27.0-31.0); MEAN CORPUSCULAR HGB CONC 32.3 g/dL (33.0-37.0); RBC 3.23 Mil/uL (3.80-5.20); RED CELL DISTRIBUTION WIDTH 17.5 % (11.5-14.5); WHITE BLOOD COUNT 8.6 K/uL (4.8-10.8)
[2017-10-25 07:21] LABS: ALBUMIN 3.1 g/dL (3.5-5.0); ALT/SGPT 25 U/L (9-52); AST/SGOT 23 U/L (14-36); BLOOD UREA NITROGEN 12 mg/dl (7-17); CALCIUM 9.1 mg/dL (8.4-10.2); GFR AFRICAN-AMERICAN > 60; GFR NON-AFRICAN AMERICAN > 60
--- NOTE | 2017-10-25 08:32 | RAD ---
Date of service: 10/25/2017 PROCEDURE: CHEST RADIOGRAPH, 1 VIEW HISTORY: pneumonia, pleural effusion COMPARISON: 10/24/2017. FINDINGS: LUNGS: The lungs are well inflated. This persistent consolidation in the right lower lobe. PLEURA: No pneumothorax. No change in small pleural effusions, larger on the right. CARDIOVASCULAR: Normal. OSSEOUS STRUCTURES: No significant abnormalities. VISUALIZED UPPER ABDOMEN: Normal. OTHER FINDINGS: None. IMPRESSION: No change in right lower lobe consolidation and bilateral small pleural effusions, larger on the right.
[2017-10-25] MEDS: Digoxin 250 mcg (0.25 mg) Tab PO SCH (08:36)
[2017-10-25] MEDS: Cholecalciferol 1,000 INTLU TAB PO SCH (08:37)
[2017-10-25] MEDS: Multivitamin With Minerals Tab PO SCH (08:37)
[2017-10-25] MEDS: Enoxaparin 40 mg Syringe SC SCH (08:43)
--- NOTE | 2017-10-25 16:44 | CP.CCUPN ---
CCU Subjective - Physician Review Events Since Last Encounter (Free Text): 10/25/17 16:08 86 Years old Female with PMHx of HTN, DM type 2, CHF, Atrial Fibrillation, moderate/severe aortic stenosis, moderate aortic regurgitation; severe mitral stenosis, moderate mitral regurgitation and severe pulmonary hypertension. Neuro: alert and oriented x 3 Pulm: hypercapnic respiratory failure resolved, breathing well on nasal canula oxygen. Atrovent q6h. Right pleural effusion has reaccumulated, causing atelectasis, may need repeat thoracentesis. CV: severe causing pulmonary edema. Consulting Dr. Cunningham for possible TAVR placement. Afib rate controlled with digoxin. Hem: continue ASA Renal: metabolic alkalosis from diuretics, continue lasix 40mg IV daily, adding diamox q12h. Endo: DM type 2, continue GI: heart healthy diet ID: no acute issues, stopping abx. DVT proph - lovenox GI proph - not currently indicated m[facility]ray for strict I/O's during acute illness Code status - DNR/DNI Critical Care Time spent 35 minutes Multi-disciplinary rounds were performed with house staff, nursing, speech therapy, respiratory therapy, pharmacy and nutrition with integrated input from the primary team/attending and other consulting services. The documented time is cumulative and includes review of patient data/exams/labs/chart review and examination of the patient on rounds and throughout the day; time is exclusive of any procedures or teaching time. CCU Objective - Vital Signs / Intake & Output Intake and Output (Last 8hrs): Intake & Output 10/25/17 10/25/17 10/25/17 06:59 14:59 22:59 Intake Total 66 218 Output Total 300 Balance -234 218 Weight 96 lb 14.4 oz Intake: IV 16 Intake, Piggyback 100 Oral 50 118 Output: Urine 300 Urethral (M[facility]ray) 300 Other: # Bowel Movements 1 1 - Physical Exam Head: Positive for: Atraumatic, Normocephalic Pupils: Positive for: PERRL Extroacular Muscles: Positive for: EOMI Conjunctiva: Positive for: Normal Mouth: Positive for: Moist Mucous Membranes Neck: Positive for: Normal Range of Motion, Trachea Midline. Negative for: Meningeal Signs, MIDLINE TENDERNESS, Paraspinal Tenderness, JVD, Lymphadenopathy , Bruit, Other Respiratory/Chest: Positive for: Decreased Breath Sounds, Rales, Rhonchi. Negative for: Clear to Auscultation, Respiratory Distress, Accessory Muscle Use , Wheezes Cardiovascular: Positive for: Regular Rate and Rhythm, Normal S1, S2, Peripheal Pulses Present. Negative for: Murmurs, Irregular Rhythm Abdomen: Positive for: Normal Bowel Sounds. Negative for: Tenderness, Distention Back: Negative for: Normal Inspection, CVA Tenderness Psychiatric: Positive for: Alert, Oriented x 3 - Medications Active Medications: Active Medications Generic Name Dose Route Start Last Admin Trade Name Freq PRN Reason Stop Dose Admin Acetaminophen 650 mg 10/17/17 13:44 Tylenol 650mg/20.3ml Solution Ud PO Q6 PRN Temperature Acetaminophen 650 mg 10/19/17 23:26 10/19/17 23:15 Tylenol 650mg/20.3ml Solution Ud PO 650 mg Q6 PRN Administration Pain, moderate (4-7) Aspirin 81 mg 10/17/17 09:00 10/25/17 08:37 Aspirin Chewable PO 81 mg DAILY NICOLE Administration Atorvastatin Calcium 20 mg 10/15/17 22:00 10/24/17 21:29 Lipitor PO 20 mg HS NICOLE Administration Cholecalciferol 2,000 intlu 10/16/17 09:00 10/25/17 08:37 Vitamin D PO 2,000 intlu DAILY NICOLE Administration Digoxin 0.25 mg 10/17/17 09:00 10/25/17 08:36 Lanoxin PO 0.25 mg DAILY NICOLE Administration Docusate Sodium 100 mg 10/15/17 17:50 Colace PO BID PRN Constipation Enoxaparin Sodium 40 mg 10/23/17 09:00 10/25/17 08:43 Lovenox SC 40 mg DAILY NICOLE Administration Protocol Furosemide 40 mg 10/17/17 09:00 10/25/17 08:41 Lasix IVP 40 mg DAILY NICOLE Administration Piperacillin Sod/Tazobactam 100 mls @ 100 mls/hr 10/24/17 10:00 10/25/17 09: 55 Sod 3.375 gm/ Sodium Chloride IVPB 10/27/17 23:59 100 mls/hr Q6 NICOLE Administration Protocol Ipratropium [place] 0.5 mg 10/21/17 14:00 10/25/17 13:28 Atrovent IH 0.5 mg RQ6 NICOLE Administration Multivitamins/Minerals 1 tab 10/16/17 09:00 10/25/17 08:37 Therapeutic-M Tab PO 1 tab DAILY NICOLE Administration Nitroglycerin 1 ea 10/16/17 16:30 10/25/17 11:57 Nitro-Bid 2% Oint TOP 1 ea Q6 NICOLE Administration - Patient Studies Lab Studies: Lab Studies 10/25/17 10/25/17 10/25/17 Range/Units 11:56 05:59 04:35 WBC (4.8-10.8) K/uL RBC (3.80-5.20) Mil/uL Hgb (12.0-16.0) g/dL Hct (34.0-47.0) % MCV (81.0-99.0) fl MCH (27.0-31.0) pg MCHC (33.0-37.0) g/dL RDW (11.5-14.5) % Plt Count (130-400) K/uL Sodium 140 (132-148) mmol/l Potassium 3.7 (3.6-5.0) MMOL/L Chloride 94 L (98-107) mmol/L Carbon Dioxide 40 H* (22-30) mmol/L Anion Gap 10 (10-20) BUN 12 (7-17) mg/dl Creatinine 0.6 L (0.7-1.2) mg/dl Est GFR ( Amer) > 60 Est GFR (Non-Af Amer) > 60 POC Glucose (mg/dL) 155 H 103 (65-110) mg/dL Random Glucose 113 H (65-105) mg/dL Calcium 9.1 (8.4-10.2) mg/dL Total Bilirubin 0.6 (0.2-1.3) mg/dl AST 23 (14-36) U/L ALT 25 (9-52) U/L Alkaline Phosphatase 52 (38-126) U/L Total Protein 6.1 L (6.3-8.2) G/DL Albumin 3.1 L (3.5-5.0) g/dL Globulin 3.0 (2.2-3.9) gm/dL Albumin/Globulin Ratio 1.0 (1.0-2.1) 10/25/17 10/24/17 10/24/17 Range/Units 04:35 20:59 16:53 WBC 8.6 (4.8-10.8) K/uL RBC 3.23 L (3.80-5.20) Mil/uL Hgb 8.5 L (12.0-16.0) g/dL Hct 26.3 L (34.0-47.0) % MCV 81.3 (81.0-99.0) fl MCH 26.2 L (27.0-31.0) pg MCHC 32.3 L (33.0-37.0) g/dL RDW 17.5 H (11.5-14.5) % Plt Count 297 (130-400) K/uL Sodium (132-148) mmol/l Potassium (3.6-5.0) MMOL/L Chloride (98-107) mmol/L Carbon Dioxide (22-30) mmol/L Anion Gap (10-20) BUN (7-17) mg/dl Creatinine (0.7-1.2) mg/dl Est GFR ( Amer) Est GFR (Non-Af Amer) POC Glucose (mg/dL) 161 H 123 H (65-110) mg/dL Random Glucose (65-105) mg/dL Calcium (8.4-10.2) mg/dL Total Bilirubin (0.2-1.3) mg/dl AST (14-36) U/L ALT (9-52) U/L Alkaline Phosphatase (38-126) U/L Total Protein (6.3-8.2) G/DL Albumin (3.5-5.0) g/dL Globulin (2.2-3.9) gm/dL Albumin/Globulin Ratio (1.0-2.1) Laboratory Results - last 24 hr 10/24/17 10/24/17 10/25/17 16:53 20:59 04:35 WBC 8.6 RBC 3.23 L Hgb 8.5 L Hct 26.3 L MCV 81.3 MCH 26.2 L MCHC 32.3 L RDW 17.5 H Plt Count 297 Sodium Potassium Chloride Carbon Dioxide Anion Gap BUN Creatinine Est GFR ( Amer) Est GFR (Non-Af Amer) POC Glucose (mg/dL) 123 H 161 H Random Glucose Calcium Total Bilirubin AST ALT Alkaline Phosphatase Total Protein Albumin Globulin Albumin/Globulin Ratio 10/25/17 10/25/17 10/25/17 04:35 05:59 11:56 WBC RBC Hgb Hct MCV MCH MCHC RDW Plt Count Sodium 140 Potassium 3.7 Chloride 94 L Carbon Dioxide 40 H* Anion Gap 10 BUN 12 Creatinine 0.6 L Est GFR ( Amer) > 60 Est GFR (Non-Af Amer) > 60 POC Glucose (mg/dL) 103 155 H Random Glucose 113 H Calcium 9.1 Total Bilirubin 0.6 AST 23 ALT 25 Alkaline Phosphatase 52 Total Protein 6.1 L Albumin 3.1 L Globulin 3.0 Albumin/Globulin Ratio 1.0 Fingerstick Blood Sugar Results: 155 Critical Care Progress Note - Nutrition Nutrition: Nutrition Category Date Time Status Heart Healthy Diet [DIET] Diets 10/18/17 Breakfast Active
--- NOTE | 2017-10-25 16:54 | CP.PCM.PN ---
Subjective - Date & Time of Evaluation Date of Evaluation: 10/25/17 Time of Evaluation: 12:30 - Subjective Subjective: Patient was seen and evaluated bedside today in ICU unit. 86 y/o female , chronically ill , cachetic pale ,with extensive PMH HTN, CHF, Afib , pulmonary Hypertension , , DM was admitted with severe SOB, CHF exacerbation , pleural effusion and acute hypercapneic respiratory failure in need for intubation . At present saturating well on 3 L O2 via NC 98-100% , and respiratory status seems improved .Right sided chest tube was removed yesterday and CXR showing still right pleural effusion Unable to sleep overnight as per patient but denies any chest pain or discomfort Hemodynamically stable, afebrile Started PT Objective - Vital Signs/Intake and Output Vital Signs (last 24 hours): Temp Pulse Resp BP Pulse Ox 98.6 F 68 19 134/52 L 100 10/25/17 16:00 10/25/17 16:16 10/25/17 16:00 10/25/17 16:16 10/25/17 16:00 Intake and Output: 10/25/17 10/25/17 06:59 18:59 Intake Total 236 418 Output Total 300 Balance -64 418 - Medications Medications: Current Medications Acetaminophen (Tylenol 650mg/20.3ml Solution Ud) 650 mg PO Q6 PRN PRN Reason: Temperature Acetaminophen (Tylenol 650mg/20.3ml Solution Ud) 650 mg PO Q6 PRN PRN Reason: Pain, moderate (4-7) Last Admin: 10/19/17 23:15 Dose: 650 mg Acetazolamide (Diamox 500 Mg Inj) 500 mg IV Q12H [facility] Aspirin (Aspirin Chewable) 81 mg PO DAILY [facility] Last Admin: 10/25/17 08:37 Dose: 81 mg Atorvastatin Calcium (Lipitor) 20 mg PO HS [facility] Last Admin: 10/24/17 21:29 Dose: 20 mg Cholecalciferol (Vitamin D) 2,000 intlu PO DAILY [facility] Last Admin: 10/25/17 08:37 Dose: 2,000 intlu Digoxin (Lanoxin) 0.25 mg PO DAILY [facility] Last Admin: 10/25/17 08:36 Dose: 0.25 mg Docusate Sodium (Colace) 100 mg PO BID PRN PRN Reason: Constipation Enoxaparin Sodium (Lovenox) 40 mg SC DAILY [facility] PRN Reason: Protocol Last Admin: 10/25/17 08:43 Dose: 40 mg Furosemide (Lasix) 40 mg IVP DAILY [facility] Last Admin: 10/25/17 08:41 Dose: 40 mg Ipratropium [place] (Atrovent) 0.5 mg IH RQ6 [facility] Last Admin: 10/25/17 13:28 Dose: 0.5 mg Multivitamins/Minerals (Therapeutic-M Tab) 1 tab PO DAILY [facility] Last Admin: 10/25/17 08:37 Dose: 1 tab Nitroglycerin (Nitro-Bid 2% Oint) 1 ea TOP Q6 [facility] Last Admin: 10/25/17 16:16 Dose: 1 ea - Labs Labs: 10/25/17 04:35 10/25/17 04:35 PT 14.1 Seconds (9.8-13.1) H 10/22/17 04:35 INR 1.3 10/22/17 04:35 APTT 27.6 Seconds (25.6-37.1) 10/18/17 04:45 - Constitutional Appears: Cachectic, Chronically Ill - Head Exam Head Exam: ATRAUMATIC, NORMOCEPHALIC Additional comments: nasal bridge small abrasion - Eye Exam Eye Exam: EOMI, PERRL Pupil Exam: NORMAL ACCOMODATION - ENT Exam ENT Exam: Mucous Membranes Moist, Normal Exam - Neck Exam Neck Exam: Full ROM, Normal Inspection - Respiratory Exam Respiratory Exam: Decreased Breath Sounds (bibasilar ), Rales. absent: Wheezes - Cardiovascular Exam Cardiovascular Exam: REGULAR RHYTHM, Murmur (systolic ) - GI/Abdominal Exam GI & Abdominal Exam: Soft, Normal Bowel Sounds. absent: Distended, Guarding, Tenderness, Rebound - Rectal Exam Rectal Exam: Deferred - Extremities Exam Extremities Exam: Normal Capillary Refill. absent: Calf Tenderness, Pedal Edema - Neurological Exam Neurological Exam: Alert, Awake, CN II-XII Intact, Oriented x3 - Psychiatric Exam Psychiatric exam: Normal Affect - Skin Skin Exam: Dry, Pallor Assessment and Plan - Assessment and Plan (Free Text) Assessment: 86 y/o F with PMHCHF, pulmonary HTN, Chronic AFib & DMII presented to ED with complaints of shortness of breath was found to have CHF exacerbation with B/L pleura effusion. Patient's troponins were minimally elevated at that time. Patient was admitted to telemetry, and on 10/17, transferred to ICU because of somnolence. ABG was performed, and showed severe hypercapnia. Patient was placed on Bipap, then intubated for acute hypoercapneic respiratory failure . She was self-extubated on 10/19 with improved mentation. right sided chest tube was placed by IR for pleural effusion and was removed . CXR showed minimal improvement of pleural effusion 1. Acute Hypercapneic Respiratory Failure most likely secondary to B/L pleural effusion, Pneumonia , CHF exacerbation was intubated and self extubated 10/19 At present saturating well on 3 l O2 via NC Chest tube removed and repeat CXR showed no improvement in pleural effusion Will continue Diureses and O2 via NC Guarded prognosis Start ambulation 2. Acute CHF exacerbation, combined systolic & dyastolic dysfunction Echo showed pulmonary HTN , , aortic regurgitation , MS , mitral regurgitation . normal EF [id number] consult appreciated Will continue digoxin and Lasix Will consult Dr. Cunningham for possible TAVR Start Diamox for metabolic alkalosis transfer to telemetry continue PT 3. Acute CO2 Narcosis - resolved See above continue o2 via NC 4. Hydropneumothorax pneumothorax development after chest tube placement now resolved chest tube removed 10/24 but CXR shows no improvement in pleural effusion continue diureses and low salt diet 5. Paroxysmal A. Fib Warfarin on hold due to elevated INR and chest tube placemnet Patient is currently rate controlled continue digoxin 6.Bilateral Pleural Effusion likely secondary to CHF Chest tube was placed and removed . Repeat CXR shows no improvement of pleural effusion but patient respiratory status has improved Fluid analysis was transudate 7.HTN (controlled) 8.DM Type II Accucheck with coverage 9. Compressive Atelectasis given empiric IV Zosyn and Vancomycin 1 blood cx and pleural fluid cx positive for staph coag negativre Vanco and zosyn discontinued 10. Acute Elevated Troponin Unlikely secondary to ischemia continue ASA & Statin therapy 11. Prothrombin time increased due to coumadin warfarin on hold 12. Anemia of chronic disease Hgb stable 13. DVT prophylaxis on Lovenox 40mg sc
[2017-10-25 21:25] LABS: BLOOD UREA NITROGEN 12 mg/dl (7-17); GFR AFRICAN-AMERICAN > 60; GFR NON-AFRICAN AMERICAN > 60
--- NOTE | 2017-10-25 21:25 | CP.PCM.PN ---
Subjective - Date & Time of Evaluation Date of Evaluation: 10/25/17 Time of Evaluation: 21:23 - Subjective Subjective: Seen on morning rounds in the ICU. Chest drainage catheter was removed yesterday w/o incident. CXR this morning shows stable, small pleural effusions bilaterally. She appears relatively comfortable at present using nasal canula oxygen. Acetazolamide added to regimen today because of persistent hypercapnea. Interventional cardiology to be consulted regarding any possible further interventions. Will continue to monitor oxygenation and pleural effusions. BiPAP ventilator on stand-by at present. Dullness to percussion is present in the lung bases bilaterally. No audible wheezes or bronchial breath sounds noted. Repeat thoracentesis if indicated. Objective - Vital Signs/Intake and Output Vital Signs (last 24 hours): Temp Pulse Resp BP Pulse Ox 97.5 F L 63 21 138/50 L 98 10/25/17 20:00 10/25/17 21:18 10/25/17 20:00 10/25/17 21:18 10/25/17 20:00 Intake and Output: 10/25/17 10/25/17 11:59 23:59 Intake Total 284 400 Output Total 300 1300 Balance -16 -900 - Medications Medications: Current Medications Acetaminophen (Tylenol 650mg/20.3ml Solution Ud) 650 mg PO Q6 PRN PRN Reason: Temperature Acetaminophen (Tylenol 650mg/20.3ml Solution Ud) 650 mg PO Q6 PRN PRN Reason: Pain, moderate (4-7) Last Admin: 10/19/17 23:15 Dose: 650 mg Acetazolamide (Diamox 500 Mg Inj) 500 mg IV Q12H [facility] Last Admin: 10/25/17 17:52 Dose: 500 mg Aspirin (Aspirin Chewable) 81 mg PO DAILY [facility] Last Admin: 10/25/17 08:37 Dose: 81 mg Atorvastatin Calcium (Lipitor) 20 mg PO HS [facility] Last Admin: 10/25/17 21:18 Dose: 20 mg Cholecalciferol (Vitamin D) 2,000 intlu PO DAILY [facility] Last Admin: 10/25/17 08:37 Dose: 2,000 intlu Digoxin (Lanoxin) 0.25 mg PO DAILY [facility] Last Admin: 10/25/17 08:36 Dose: 0.25 mg Docusate Sodium (Colace) 100 mg PO BID PRN PRN Reason: Constipation Enoxaparin Sodium (Lovenox) 40 mg SC DAILY [facility] PRN Reason: Protocol Last Admin: 10/25/17 08:43 Dose: 40 mg Furosemide (Lasix) 40 mg IVP DAILY [facility] Last Admin: 10/25/17 08:41 Dose: 40 mg Ipratropium [place] (Atrovent) 0.5 mg IH RQ6 [facility] Last Admin: 10/25/17 19:09 Dose: 0.5 mg Multivitamins/Minerals (Therapeutic-M Tab) 1 tab PO DAILY [facility] Last Admin: 10/25/17 08:37 Dose: 1 tab Nitroglycerin (Nitro-Bid 2% Oint) 1 ea TOP Q6 [facility] Last Admin: 10/25/17 21:18 Dose: 1 ea - Labs Labs: 10/25/17 04:35 10/25/17 04:35 PT 14.1 Seconds (9.8-13.1) H 10/22/17 04:35 INR 1.3 10/22/17 04:35 APTT 27.6 Seconds (25.6-37.1) 10/18/17 04:45 Assessment and Plan (1) Bilateral pleural effusion Status: Acute (2) Pulmonary hypertension Status: Chronic (3) Acute respiratory failure with hypercapnia Status: Acute
[2017-10-26] MEDS: Ipratropium 0.02% Inhal Soln (0.5 mg/2.5 ml) UD IH SCH ×2 (01:01→07:50)
[2017-10-26] MEDS: Nitroglycerin 2% Ointment Foilpak UD TOP SCH ×4 (03:37→22:07)
[2017-10-26 05:18] LABS: MEAN CELL VOLUME 84.4 fl (81.0-99.0); MEAN CORPUSCULAR HEMOGLOBIN 26.3 pg (27.0-31.0); MEAN CORPUSCULAR HGB CONC 31.2 g/dL (33.0-37.0); RBC 3.43 Mil/uL (3.80-5.20); RED CELL DISTRIBUTION WIDTH 17.9 % (11.5-14.5); WHITE BLOOD COUNT 7.6 K/uL (4.8-10.8)
[2017-10-26 06:05] LABS: ALBUMIN 3.3 g/dL (3.5-5.0); ALT/SGPT 26 U/L (9-52); AST/SGOT 31 U/L (14-36); BLOOD UREA NITROGEN 10 mg/dl (7-17); CALCIUM 9.4 mg/dL (8.4-10.2); GFR AFRICAN-AMERICAN > 60; GFR NON-AFRICAN AMERICAN > 60
--- NOTE | 2017-10-26 06:26 | PCM.BM ---
- Diagnosis (1) Valvular heart disease Status: Acute Interventions: 10/26/17 06:22 consulted for evaluation of valvular heart disease ( ) possilbe TAVR echo and chart reviewed and following patient for cardiology Echo shows severe MS and moderate very high risk for any intervention as patient will need double valve surgery for meaningful clincial benefit per chart pt is DNR/DNI therefore would recommend to continue with management per /Sera may benefit with right heart cath hemodynamics to manage afterload/preload titration depending on recurrence of pleural effusion.
--- NOTE | 2017-10-26 07:35 | CP.PCM.PN ---
Subjective - Date & Time of Evaluation Date of Evaluation: 10/26/17 Time of Evaluation: 07:35 - Subjective Subjective: stable this AM on NC no apparent distress Objective - Vital Signs/Intake and Output Vital Signs (last 24 hours): Temp Pulse Resp BP Pulse Ox 97.6 F 72 15 127/51 L 100 10/26/17 04:00 10/26/17 06:00 10/26/17 06:00 10/26/17 06:00 10/26/17 06:00 Intake and Output: 10/26/17 10/26/17 06:59 18:59 Intake Total 126 Output Total 1000 Balance -874 GEN: awake alert HEENT: NCAT, PERRL, EOMI HEART: RRR +S1S2 LUNG: CTAB no WRR ABD: soft, NT, ND, no mass, BSx4 EXT: normal capillary refill, warm SKIN: warm, dry NEURO: awake, alert PSYCH: normal mood and affect - Medications Medications: Current Medications Acetaminophen (Tylenol 650mg/20.3ml Solution Ud) 650 mg PO Q6 PRN PRN Reason: Temperature Acetaminophen (Tylenol 650mg/20.3ml Solution Ud) 650 mg PO Q6 PRN PRN Reason: Pain, moderate (4-7) Last Admin: 10/19/17 23:15 Dose: 650 mg Acetazolamide (Diamox 500 Mg Inj) 500 mg IV Q12H [facility] Last Admin: 10/26/17 03:54 Dose: 500 mg Aspirin (Aspirin Chewable) 81 mg PO DAILY [facility] Last Admin: 10/25/17 08:37 Dose: 81 mg Atorvastatin Calcium (Lipitor) 20 mg PO HS [facility] Last Admin: 10/25/17 21:18 Dose: 20 mg Cholecalciferol (Vitamin D) 2,000 intlu PO DAILY [facility] Last Admin: 10/25/17 08:37 Dose: 2,000 intlu Digoxin (Lanoxin) 0.25 mg PO DAILY [facility] Last Admin: 10/25/17 08:36 Dose: 0.25 mg Docusate Sodium (Colace) 100 mg PO BID PRN PRN Reason: Constipation Enoxaparin Sodium (Lovenox) 40 mg SC DAILY [facility] PRN Reason: Protocol Last Admin: 10/25/17 08:43 Dose: 40 mg Furosemide (Lasix) 40 mg IVP DAILY [facility] Last Admin: 10/25/17 08:41 Dose: 40 mg Ipratropium [place] (Atrovent) 0.5 mg IH RQ6 [facility] Last Admin: 10/26/17 01:01 Dose: 0.5 mg Multivitamins/Minerals (Therapeutic-M Tab) 1 tab PO DAILY [facility] Last Admin: 10/25/17 08:37 Dose: 1 tab Nitroglycerin (Nitro-Bid 2% Oint) 1 ea TOP Q6 [facility] Last Admin: 10/26/17 03:37 Dose: 1 ea - Labs Labs: 10/26/17 05:00 10/26/17 05:00 PT 14.1 Seconds (9.8-13.1) H 10/22/17 04:35 INR 1.3 10/22/17 04:35 APTT 27.6 Seconds (25.6-37.1) 10/18/17 04:45 Assessment and Plan - Assessment and Plan (Free Text) Plan: 86 y/o F with PMH CHF, pulmonary HTN, Chronic AFib & DMII presented to ED with complaints of shortness of breath was found to have CHF exacerbation with B/L pleura effusion. Patient's troponins were minimally elevated at that time. Patient was admitted to telemetry, and on 10/17, transferred to ICU because of somnolence. ABG was performed, and showed severe hypercapnia. Patient was placed on Bipap, then intubated for acute hypoercapneic respiratory failure . She was self-extubated on 10/19 with improved mentation. right sided chest tube was placed by IR for pleural effusion and was removed . CXR showed minimal improvement of pleural effusion per interventional cardiology, conservative treatment recommended at this time, not candidate for extensive procedures. 1. Acute Hypercapneic Respiratory Failure most likely secondary to B/L pleural effusion, Pneumonia , CHF exacerbation was intubated and self extubated 10/19 At present saturating well on 3 l O2 via NC Chest tube removed and repeat CXR showed no improvement in pleural effusion Will continue Diureses and O2 via NC Guarded prognosis Start ambulation 2. Acute CHF exacerbation, combined systolic & dyastolic dysfunction Echo showed pulmonary HTN , , aortic regurgitation , MS , mitral regurgitation . normal EF Cardiology consult appreciated Will continue digoxin and Lasix Will consult Dr. Cunningham for possible TAVR, no tavr recommended at this time. Start Diamox for metabolic alkalosis transfer to telemetry continue PT 3. Acute CO2 Narcosis - resolved See above continue o2 via NC 4. Hydropneumothorax pneumothorax development after chest tube placement now resolved chest tube removed 10/24 but CXR shows no improvement in pleural effusion continue diureses and low salt diet 5. Paroxysmal A. Fib Warfarin on hold due to elevated INR and chest tube placemnet Patient is currently rate controlled continue digoxin 6.Bilateral Pleural Effusion likely secondary to CHF Chest tube was placed and removed . Repeat CXR shows no improvement of pleural effusion but patient respiratory status has improved Fluid analysis was transudate 7.HTN (controlled) 8.DM Type II Accucheck with coverage 9. Compressive Atelectasis given empiric IV Zosyn and Vancomycin 1 blood cx and pleural fluid cx positive for staph coag negativre Vanco and zosyn discontinued 10. Acute Elevated Troponin Unlikely secondary to ischemia continue ASA & Statin therapy 11. Prothrombin time increased due to coumadin warfarin on hold 12. Anemia of chronic disease Hgb stable 13. DVT prophylaxis on Lovenox 40mg sc
[2017-10-26] MEDS: Digoxin 250 mcg (0.25 mg) Tab PO SCH (09:24)
[2017-10-26] MEDS: Enoxaparin 40 mg Syringe SC SCH (09:25)
[2017-10-26] MEDS: Cholecalciferol 1,000 INTLU TAB PO SCH (09:27)
[2017-10-26] MEDS: Multivitamin With Minerals Tab PO SCH (09:27)
[2017-10-26 09:42] LABS: URINE BACTERIA RARE (<OCC); URINE BILIRUBIN NEGATIVE (NEGATIVE); URINE BLOOD LARGE (NEGATIVE); URINE CLARITY TURBID (Clear); URINE COLOR RED (YELLOW); URINE GLUCOSE (UA) NEG (Normal); URINE LEUKOCYTE ESTERASE MOD Leu/uL (Negative); URINE PROTEIN 100 mg/dL (NEGATIVE); URINE UROBILINOGEN 0.2-1.0 mg/dL (0.2-1.0); WBC CLUMPS MANY /hpf
--- NOTE | 2017-10-26 09:56 | CP.PCM.PN ---
<Eryn Au - Last Filed: 10/26/17 12:34> Subjective - Subjective Subjective: VIKY Frey, PGY-1 -Patient seen and examined this AM in ICU with residents. -Vitals stable spo2-98%, BP-127/51, pulse- 72, RR-15 -Patient appears comfortable, sitting upright in chair on 3.5L ofNC, which was decreased to 3L to ensure spo2 remains at her usual baseline of 93-95 rather than 98%. -Patient had to use BiPAP last nigt because of some confusion likely due to increase spo2 which can decrease hypoxic drive. Will continue to monitor oxygenation -Dressing was removed from site where pigtail previously was. -CXR ordered for today. Patient agreeable. Previous CXR showed small , stable b/ l pleural effusions. -Will continue to observe while on Acetazolamide to ensure patient does not become fatigued. -Dr. Cunningham recommended continued medical management, and stated patient is high risk for reparative surgery of valves. and pleural effusions. -Dullness to percussion in b/l lung bases. -No wheezes or bronchial breath sounds auscultated. -Repeat thoracentesis if indicated. Objective - Vital Signs/Intake and Output Vital Signs (last 24 hours): Temp Pulse Resp BP Pulse Ox 97.8 F 60 14 131/49 L 98 10/26/17 12:00 10/26/17 12:00 10/26/17 12:00 10/26/17 12:00 10/26/17 12:00 Intake and Output: 10/26/17 10/26/17 06:59 18:59 Intake Total 126 212 Output Total 1000 375 Balance -874 -163 - Medications Medications: Current Medications Acetaminophen (Tylenol 650mg/20.3ml Solution Ud) 650 mg PO Q6 PRN PRN Reason: Temperature Acetaminophen (Tylenol 650mg/20.3ml Solution Ud) 650 mg PO Q6 PRN PRN Reason: Pain, moderate (4-7) Last Admin: 10/19/17 23:15 Dose: 650 mg Acetazolamide (Diamox 500 Mg Inj) 500 mg IV Q12H [facility] Last Admin: 10/26/17 03:54 Dose: 500 mg Aspirin (Aspirin Chewable) 81 mg PO DAILY [facility] Last Admin: 10/26/17 09:24 Dose: Not Given Atorvastatin Calcium (Lipitor) 20 mg PO HS [facility] Last Admin: 10/25/17 21:18 Dose: 20 mg Cholecalciferol (Vitamin D) 2,000 intlu PO DAILY [facility] Last Admin: 10/26/17 09:27 Dose: 2,000 intlu Digoxin (Lanoxin) 0.25 mg PO DAILY [facility] Last Admin: 10/26/17 09:24 Dose: 0.25 mg Docusate Sodium (Colace) 100 mg PO BID PRN PRN Reason: Constipation Enoxaparin Sodium (Lovenox) 40 mg SC DAILY [facility] PRN Reason: Protocol Last Admin: 10/26/17 09:25 Dose: Not Given Ipratropium [place] (Atrovent) 0.5 mg IH RQ6 [facility] Last Admin: 10/26/17 07:50 Dose: 0.5 mg Multivitamins/Minerals (Therapeutic-M Tab) 1 tab PO DAILY [facility] Last Admin: 10/26/17 09:27 Dose: 1 tab Nitroglycerin (Nitro-Bid 2% Oint) 1 ea TOP Q6 [facility] Last Admin: 10/26/17 09:26 Dose: 1 ea - Labs Labs: 10/26/17 05:00 10/26/17 05:00 PT 14.1 Seconds (9.8-13.1) H 10/22/17 04:35 INR 1.3 10/22/17 04:35 APTT 27.6 Seconds (25.6-37.1) 10/18/17 04:45 <Tu Richardson - Last Filed: 10/26/17 13:04> Subjective - Date & Time of Evaluation Date of Evaluation: 10/26/17 Time of Evaluation: 09:56 - Subjective Subjective: Seen on rounds together with the residents this morning. Patient was presently OOB in a bedside chair and appeared more comfortable. Physical findings and ancillary studies were all reviewed. The case was discussed and a plan of care was formulated. The note entered in the EMR by the resident is accurate and reflects what was agreed upon. Of note; today's chest x-ray does appear to be slightly improved from the previous study. Objective - Vital Signs/Intake and Output Vital Signs (last 24 hours): Temp Pulse Resp BP Pulse Ox 98.5 F 72 18 133/59 L 98 10/26/17 08:00 10/26/17 09:26 10/26/17 08:00 10/26/17 09:26 10/26/17 08:00 Intake and Output: 10/25/17 10/26/17 23:59 11:59 Intake Total 429 291 Output Total 1300 1000 Balance -771 -089 - Medications Medications: Current Medications Acetaminophen (Tylenol 650mg/20.3ml Solution Ud) 650 mg PO Q6 PRN PRN Reason: Temperature Acetaminophen (Tylenol 650mg/20.3ml Solution Ud) 650 mg PO Q6 PRN PRN Reason: Pain, moderate (4-7) Last Admin: 10/19/17 23:15 Dose: 650 mg Acetazolamide (Diamox 500 Mg Inj) 500 mg IV Q12H [facility] Last Admin: 10/26/17 03:54 Dose: 500 mg Aspirin (Aspirin Chewable) 81 mg PO DAILY [facility] Last Admin: 10/26/17 09:24 Dose: Not Given Atorvastatin Calcium (Lipitor) 20 mg PO HS [facility] Last Admin: 10/25/17 21:18 Dose: 20 mg Cholecalciferol (Vitamin D) 2,000 intlu PO DAILY [facility] Last Admin: 10/26/17 09:27 Dose: 2,000 intlu Digoxin (Lanoxin) 0.25 mg PO DAILY [facility] Last Admin: 10/26/17 09:24 Dose: 0.25 mg Docusate Sodium (Colace) 100 mg PO BID PRN PRN Reason: Constipation Enoxaparin Sodium (Lovenox) 40 mg SC DAILY [facility] PRN Reason: Protocol Last Admin: 10/26/17 09:25 Dose: Not Given Ipratropium [place] (Atrovent) 0.5 mg IH RQ6 [facility] Last Admin: 10/26/17 07:50 Dose: 0.5 mg Multivitamins/Minerals (Therapeutic-M Tab) 1 tab PO DAILY [facility] Last Admin: 10/26/17 09:27 Dose: 1 tab Nitroglycerin (Nitro-Bid 2% Oint) 1 ea TOP Q6 [facility] Last Admin: 10/26/17 09:26 Dose: 1 ea - Labs Labs: 10/26/17 05:00 10/26/17 05:00 PT 14.1 Seconds (9.8-13.1) H 10/22/17 04:35 INR 1.3 10/22/17 04:35 APTT 27.6 Seconds (25.6-37.1) 10/18/17 04:45 Assessment and Plan (1) Bilateral pleural effusion Status: Acute (2) Pulmonary hypertension Status: Chronic (3) Acute respiratory failure with hypercapnia Status: Acute
--- NOTE | 2017-10-26 10:50 | RAD ---
Date of service: 10/26/2017 HISTORY: PLEURAL EFFUSION COMPARISON: 10/25/2017 FINDINGS: LUNGS: Opacity at right lung base diminished compared to prior examination. Possible pneumonia. No other abnormal opacity elsewhere. PLEURA: Bilateral small pleural effusion, unchanged. No pneumothorax. CARDIOVASCULAR: Normal. OSSEOUS STRUCTURES: No significant abnormalities. VISUALIZED UPPER ABDOMEN: Normal. OTHER FINDINGS: None. IMPRESSION: Small bilateral pleural effusion. Decreasing opacity at right lung base. Possible pneumonia.
--- NOTE | 2017-10-26 12:55 | CP.CCUPN ---
CCU Subjective - Physician Review Events Since Last Encounter (Free Text): 10/26/17 12:55 patient feels better, no complaints. CCU Objective - Vital Signs / Intake & Output Vital Signs (Last 4 hours): Vital Signs Temp Pulse Resp BP Pulse Ox 10/26/17 12:00 97.8 F 60 14 131/49 L 98 10/26/17 10:00 68 24 133/55 L 98 10/26/17 09:26 72 133/59 L Intake and Output (Last 8hrs): Intake & Output 10/25/17 10/26/17 10/26/17 22:59 06:59 14:59 Intake Total 329 87 212 Output Total 1300 1000 375 Balance -971 -913 -163 Weight 98 lb 3.2 oz Intake: IV 34 12 12 Intake, Piggyback 150 50 Oral 145 25 200 Output: Urine 1300 1000 375 Urethral (Mccray) 1300 1000 375 Other: # Bowel Movements 0 1 - Physical Exam Head: Positive for: Atraumatic, Normocephalic Pupils: Positive for: PERRL Extroacular Muscles: Positive for: EOMI Conjunctiva: Positive for: Normal Mouth: Positive for: Moist Mucous Membranes Neck: Positive for: Normal Range of Motion, Trachea Midline. Negative for: Meningeal Signs, MIDLINE TENDERNESS, Paraspinal Tenderness, JVD, Lymphadenopathy , Bruit, Other Respiratory/Chest: Positive for: Decreased Breath Sounds (RLL). Negative for: Clear to Auscultation, Respiratory Distress, Accessory Muscle Use, Wheezes Cardiovascular: Positive for: Regular Rate and Rhythm, Normal S1, S2, Peripheal Pulses Present. Negative for: Murmurs, Irregular Rhythm Abdomen: Positive for: Normal Bowel Sounds. Negative for: Tenderness, Distention Back: Negative for: Normal Inspection, CVA Tenderness Psychiatric: Positive for: Alert, Oriented x 3 - Medications Active Medications: Active Medications Generic Name Dose Route Start Last Admin Trade Name Freq PRN Reason Stop Dose Admin Acetaminophen 650 mg 10/17/17 13:44 Tylenol 650mg/20.3ml Solution Ud PO Q6 PRN Temperature Acetaminophen 650 mg 10/19/17 23:26 10/19/17 23:15 Tylenol 650mg/20.3ml Solution Ud PO 650 mg Q6 PRN Administration Pain, moderate (4-7) Acetazolamide 500 mg 10/25/17 16:30 10/26/17 03:54 Diamox 500 Mg Inj IV 500 mg Q12H [facility] Administration Aspirin 81 mg 10/17/17 09:00 10/26/17 09:24 Aspirin Chewable PO Not Given DAILY [facility] Atorvastatin Calcium 20 mg 10/15/17 22:00 10/25/17 21:18 Lipitor PO 20 mg HS [facility] Administration Cholecalciferol 2,000 intlu 10/16/17 09:00 10/26/17 09:27 Vitamin D PO 2,000 intlu DAILY [facility] Administration Digoxin 0.25 mg 10/17/17 09:00 10/26/17 09:24 Lanoxin PO 0.25 mg DAILY [facility] Administration Docusate Sodium 100 mg 10/15/17 17:50 Colace PO BID PRN Constipation Enoxaparin Sodium 40 mg 10/23/17 09:00 10/26/17 09:25 Lovenox SC Not Given DAILY [facility] Protocol Ipratropium [place] 0.5 mg 10/21/17 14:00 10/26/17 07:50 Atrovent IH 0.5 mg RQ6 [facility] Administration Multivitamins/Minerals 1 tab 10/16/17 09:00 10/26/17 09:27 Therapeutic-M Tab PO 1 tab DAILY [facility] Administration Nitroglycerin 1 ea 10/16/17 16:30 10/26/17 09:26 Nitro-Bid 2% Oint TOP 1 ea Q6 [facility] Administration - Patient Studies Lab Studies: Lab Studies 10/26/17 10/26/17 10/26/17 Range/Units 11:53 09:00 05:00 WBC (4.8-10.8) K/uL RBC (3.80-5.20) Mil/uL Hgb (12.0-16.0) g/dL Hct (34.0-47.0) % MCV (81.0-99.0) fl MCH (27.0-31.0) pg MCHC (33.0-37.0) g/dL RDW (11.5-14.5) % Plt Count (130-400) K/uL Sodium 141 (132-148) mmol/l Potassium 3.8 (3.6-5.0) MMOL/L Chloride 96 L (98-107) mmol/L Carbon Dioxide 42 H* (22-30) mmol/L Anion Gap 7 L (10-20) BUN 10 (7-17) mg/dl Creatinine 0.7 (0.7-1.2) mg/dl Est GFR ( Amer) > 60 Est GFR (Non-Af Amer) > 60 POC Glucose (mg/dL) 103 (65-110) mg/dL Random Glucose 107 H (65-105) mg/dL Calcium 9.4 (8.4-10.2) mg/dL Magnesium 1.9 (1.6-2.3) MG/DL Total Bilirubin 0.6 (0.2-1.3) mg/dl AST 31 (14-36) U/L ALT 26 (9-52) U/L Alkaline Phosphatase 53 (38-126) U/L Total Protein 6.4 (6.3-8.2) G/DL Albumin 3.3 L (3.5-5.0) g/dL Globulin 3.2 (2.2-3.9) gm/dL Albumin/Globulin Ratio 1.0 (1.0-2.1) Urine Color Red (YELLOW) Urine Clarity Turbid (Clear) Urine pH 8.0 (5.0-8.0) Ur Specific [place] 1.010 (1.003-1.030) Urine Protein 100 (NEGATIVE) mg/dL Urine Glucose (UA) Neg (Normal) mg/dL Urine Ketones Negative (NEGATIVE) mg/dL Urine Blood Large (NEGATIVE) Urine Nitrate Negative (NEGATIVE) Urine Bilirubin Negative (NEGATIVE) Urine Urobilinogen 0.2-1.0 (0.2-1.0) mg/dL Ur Leukocyte Esterase Mod (Negative) [place]/uL Urine RBC (Auto) 4156 H (0-3) /hpf Urine WBC Clumps (Auto) Many H (NONE) /hpf Urine Microscopic WBC 183 H (0-5) /hpf Urine Bacteria Rare (<OCC) 10/26/17 10/26/17 10/25/17 Range/Units 05:00 04:58 20:55 WBC 7.6 (4.8-10.8) K/uL RBC 3.43 L (3.80-5.20) Mil/uL Hgb 9.0 L (12.0-16.0) g/dL Hct 29.0 L (34.0-47.0) % MCV 84.4 D (81.0-99.0) fl MCH 26.3 L (27.0-31.0) pg MCHC 31.2 L (33.0-37.0) g/dL RDW 17.9 H (11.5-14.5) % Plt Count 318 (130-400) K/uL Sodium (132-148) mmol/l Potassium (3.6-5.0) MMOL/L Chloride (98-107) mmol/L Carbon Dioxide (22-30) mmol/L Anion Gap (10-20) BUN (7-17) mg/dl Creatinine (0.7-1.2) mg/dl Est GFR ( Amer) Est GFR (Non-Af Amer) POC Glucose (mg/dL) 111 H 119 H (65-110) mg/dL Random Glucose (65-105) mg/dL Calcium (8.4-10.2) mg/dL Magnesium (1.6-2.3) MG/DL Total Bilirubin (0.2-1.3) mg/dl AST (14-36) U/L ALT (9-52) U/L Alkaline Phosphatase (38-126) U/L Total Protein (6.3-8.2) G/DL Albumin (3.5-5.0) g/dL Globulin (2.2-3.9) gm/dL Albumin/Globulin Ratio (1.0-2.1) Urine Color (YELLOW) Urine Clarity (Clear) Urine pH (5.0-8.0) Ur Specific [place] (1.003-1.030) Urine Protein (NEGATIVE) mg/dL Urine Glucose (UA) (Normal) mg/dL Urine Ketones (NEGATIVE) mg/dL Urine Blood (NEGATIVE) Urine Nitrate (NEGATIVE) Urine Bilirubin (NEGATIVE) Urine Urobilinogen (0.2-1.0) mg/dL Ur Leukocyte Esterase (Negative) Julianna/uL Urine RBC (Auto) (0-3) /hpf Urine WBC Clumps (Auto) (NONE) /hpf Urine Microscopic WBC (0-5) /hpf Urine Bacteria (<OCC) 10/25/17 10/25/17 Range/Units 19:26 16:19 WBC (4.8-10.8) K/uL RBC (3.80-5.20) Mil/uL Hgb (12.0-16.0) g/dL Hct (34.0-47.0) % MCV (81.0-99.0) fl MCH (27.0-31.0) pg MCHC (33.0-37.0) g/dL RDW (11.5-14.5) % Plt Count (130-400) K/uL Sodium 140 (132-148) mmol/l Potassium 3.6 (3.6-5.0) MMOL/L Chloride 92 L (98-107) mmol/L Carbon Dioxide 45 H* (22-30) mmol/L Anion Gap 7 L (10-20) BUN 12 (7-17) mg/dl Creatinine 0.7 (0.7-1.2) mg/dl Est GFR ( Amer) > 60 Est GFR (Non-Af Amer) > 60 POC Glucose (mg/dL) 85 (65-110) mg/dL Random Glucose 121 H (65-105) mg/dL Calcium 9.0 (8.4-10.2) mg/dL Magnesium (1.6-2.3) MG/DL Total Bilirubin (0.2-1.3) mg/dl AST (14-36) U/L ALT (9-52) U/L Alkaline Phosphatase (38-126) U/L Total Protein (6.3-8.2) G/DL Albumin (3.5-5.0) g/dL Globulin (2.2-3.9) gm/dL Albumin/Globulin Ratio (1.0-2.1) Urine Color (YELLOW) Urine Clarity (Clear) Urine pH (5.0-8.0) Ur Specific [place] (1.003-1.030) Urine Protein (NEGATIVE) mg/dL Urine Glucose (UA) (Normal) mg/dL Urine Ketones (NEGATIVE) mg/dL Urine Blood (NEGATIVE) Urine Nitrate (NEGATIVE) Urine Bilirubin (NEGATIVE) Urine Urobilinogen (0.2-1.0) mg/dL Ur Leukocyte Esterase (Negative) [place]/uL Urine RBC (Auto) (0-3) /hpf Urine WBC Clumps (Auto) (NONE) /hpf Urine Microscopic WBC (0-5) /hpf Urine Bacteria (<OCC) Laboratory Results - last 24 hr 10/25/17 10/25/17 10/25/17 16:19 19:26 20:55 WBC RBC Hgb Hct MCV MCH MCHC RDW Plt Count Sodium 140 Potassium 3.6 Chloride 92 L Carbon Dioxide 45 H* Anion Gap 7 L BUN 12 Creatinine 0.7 Est GFR ( Amer) > 60 Est GFR (Non-Af Amer) > 60 POC Glucose (mg/dL) 85 119 H Random Glucose 121 H Calcium 9.0 Magnesium Total Bilirubin AST ALT Alkaline Phosphatase Total Protein Albumin Globulin Albumin/Globulin Ratio Urine Color Urine Clarity Urine pH Ur Specific [place] Urine Protein Urine Glucose (UA) Urine Ketones Urine Blood Urine Nitrate Urine Bilirubin Urine Urobilinogen Ur Leukocyte Esterase Urine RBC (Auto) Urine WBC Clumps (Auto) Urine Microscopic WBC Urine Bacteria 10/26/17 10/26/17 10/26/17 04:58 05:00 05:00 WBC 7.6 RBC 3.43 L Hgb 9.0 L Hct 29.0 L MCV 84.4 D MCH 26.3 L MCHC 31.2 L RDW 17.9 H Plt Count 318 Sodium 141 Potassium 3.8 Chloride 96 L Carbon Dioxide 42 H* Anion Gap 7 L BUN 10 Creatinine 0.7 Est GFR ( Amer) > 60 Est GFR (Non-Af Amer) > 60 POC Glucose (mg/dL) 111 H Random Glucose 107 H Calcium 9.4 Magnesium 1.9 Total Bilirubin 0.6 AST 31 ALT 26 Alkaline Phosphatase 53 Total Protein 6.4 Albumin 3.3 L Globulin 3.2 Albumin/Globulin Ratio 1.0 Urine Color Urine Clarity Urine pH Ur Specific [place] Urine Protein Urine Glucose (UA) Urine Ketones Urine Blood Urine Nitrate Urine Bilirubin Urine Urobilinogen Ur Leukocyte Esterase Urine RBC (Auto) Urine WBC Clumps (Auto) Urine Microscopic WBC Urine Bacteria 10/26/17 10/26/17 09:00 11:53 WBC RBC Hgb Hct MCV MCH MCHC RDW Plt Count Sodium Potassium Chloride Carbon Dioxide Anion Gap BUN Creatinine Est GFR ( Amer) Est GFR (Non-Af Amer) POC Glucose (mg/dL) 103 Random Glucose Calcium Magnesium Total Bilirubin AST ALT Alkaline Phosphatase Total Protein Albumin Globulin Albumin/Globulin Ratio Urine Color Red Urine Clarity Turbid Urine pH 8.0 Ur Specific [place] 1.010 Urine Protein 100 Urine Glucose (UA) Neg Urine Ketones Negative Urine Blood Large Urine Nitrate Negative Urine Bilirubin Negative Urine Urobilinogen 0.2-1.0 Ur Leukocyte Esterase Mod Urine RBC (Auto) 4156 H Urine WBC Clumps (Auto) Many H Urine Microscopic WBC 183 H Urine Bacteria Rare Fingerstick Blood Sugar Results: 103 Review of Systems - Review of Systems All systems: reviewed and no additional remarkable complaints except (no complaints) Critical Care Progress Note - Nutrition Nutrition: Nutrition Category Date Time Status Heart Healthy Diet [DIET] Diets 10/18/17 Breakfast Active Assessment/Plan (1) Aortic stenosis, severe Assessment and plan: 86 Years old Female with PMHx of HTN, DM type 2, CHF, Atrial Fibrillation, moderate/severe aortic stenosis, moderate aortic regurgitation; severe mitral stenosis, moderate mitral regurgitation and severe pulmonary hypertension. Neuro: alert and oriented x 3 Pulm: hypercapnic respiratory failure resolved, breathing well on nasal canula oxygen. Atrovent q6h prn. Right pleural effusion has reaccumulated, causing atelectasis, may need repeat thoracentesis if patient becomes symptomatic. CV: severe causing pulmonary edema. Consulting Dr. Cunningham for possible TAVR placement, patient may benefit from AVR and possible MVR. Afib rate controlled with digoxin. Hem: continue ASA Renal: metabolic alkalosis from diuretics, stopped lasix for now continue diamox q12h. Will restart lasix once alkalosis improved. Endo: DM type 2, continue GI: heart healthy diet ID: no acute issues. DVT proph - lovenox GI proph - not currently indicated mccray for strict I/O's during acute illness Code status - DNR/DNI Clinically stable for downgrade the floors. Critical Care Time spent 35 minutes Multi-disciplinary rounds were performed with house staff, nursing, speech therapy, respiratory therapy, pharmacy and nutrition with integrated input from the primary team/attending and other consulting services. The documented time is cumulative and includes review of patient data/exams/labs/chart review and examination of the patient on rounds and throughout the day; time is exclusive of any procedures or teaching time. Current Visit: Yes Status: Acute
[2017-10-26] MEDS ORDERED: Ipratropium 0.02% Inhal Soln (0.5 mg/2.5 ml) UD IH PRN (13:08)
[2017-10-27] MEDS: Nitroglycerin 2% Ointment Foilpak UD TOP SCH ×4 (05:00→21:51)
[2017-10-27 07:06] LABS: BASO % 0.5 % (0.0-2.0); EOS # 0.1 K/uL (0.0-0.7); EOS % 0.8 % (0.0-4.0); HEMOGLOBIN 9.9 g/dL (12.0-16.0); LYMPH # 0.7 K/uL (1.0-4.3); LYMPH % 7.9 % (20.0-40.0); MEAN CELL VOLUME 82.4 fl (81.0-99.0); MEAN CORPUSCULAR HEMOGLOBIN 26.2 pg (27.0-31.0); MEAN CORPUSCULAR HGB CONC 31.8 g/dL (33.0-37.0); MONO % 10.6 % (0.0-10.0); NEUT # 7.4 K/uL (1.8-7.0); NEUT % 80.2 % (50.0-75.0); NRBC % 0.1 % (0.0-0.0); PLATELET COUNT 384 K/uL (130-400); RBC 3.78 Mil/uL (3.80-5.20); RED CELL DISTRIBUTION WIDTH 18.3 % (11.5-14.5); WHITE BLOOD COUNT 9.2 K/uL (4.8-10.8)
[2017-10-27 07:25] LABS: BLOOD UREA NITROGEN 12 mg/dl (7-17); CALCIUM 10.2 mg/dL (8.4-10.2); GFR AFRICAN-AMERICAN > 60; GFR NON-AFRICAN AMERICAN > 60
[2017-10-27 08:15] LABS: BASOPHIL 1 % (0-2); LYMPHOCYTE 7 % (20-50); MONOCYTE 6 % (0-10); TOTAL CELLS COUNTED 100
[2017-10-27 08:16] LABS: ANISOCYTOSIS SLIGHT; EOSINOPHIL 1 % (0-7); NEUTROPHIL 85 % (42-75); POIKILOCYTOSIS SLIGHT
--- NOTE | 2017-10-27 08:31 | CP.PCM.PN ---
Subjective - Date & Time of Evaluation Date of Evaluation: 10/27/17 Time of Evaluation: 10:00 - Subjective Subjective: Patient was seen and evaluated bedside in telemetry unit. Elderly,chronically ill , cachetic, pale female lying in bed with 3 L O2 via NC saturating [address] % . States that her breathing has somewhat improved. Hemodynamically stable, afebrile Unable to sleep at night, feeling anxious Objective - Vital Signs/Intake and Output Vital Signs (last 24 hours): Temp Pulse Resp BP Pulse Ox 98.2 F 103 H 18 153/67 H 97 10/27/17 05:00 10/27/17 05:00 10/27/17 05:00 10/27/17 05:00 10/27/17 05:00 Intake and Output: 10/27/17 10/27/17 06:59 18:59 Intake Total 0 Balance 0 - Medications Medications: Current Medications Acetaminophen (Tylenol 650mg/20.3ml Solution Ud) 650 mg PO Q6 PRN PRN Reason: Temperature Acetaminophen (Tylenol 650mg/20.3ml Solution Ud) 650 mg PO Q6 PRN PRN Reason: Pain, moderate (4-7) Last Admin: 10/19/17 23:15 Dose: 650 mg Acetazolamide (Diamox 500 Mg Inj) 500 mg IV Q12 [facility] Aspirin (Aspirin Chewable) 81 mg PO DAILY [facility] Last Admin: 10/26/17 09:24 Dose: Not Given Atorvastatin Calcium (Lipitor) 20 mg PO HS [facility] Last Admin: 10/26/17 22:05 Dose: 20 mg Cholecalciferol (Vitamin D) 2,000 intlu PO DAILY [facility] Last Admin: 10/26/17 09:27 Dose: 2,000 intlu Digoxin (Lanoxin) 0.25 mg PO DAILY [facility] Last Admin: 10/26/17 09:24 Dose: 0.25 mg Docusate Sodium (Colace) 100 mg PO BID PRN PRN Reason: Constipation Enoxaparin Sodium (Lovenox) 40 mg SC DAILY [facility] PRN Reason: Protocol Last Admin: 10/26/17 09:25 Dose: Not Given Ipratropium [place] (Atrovent) 0.5 mg IH RQ6 PRN PRN Reason: Wheezing Multivitamins/Minerals (Therapeutic-M Tab) 1 tab PO DAILY [facility] Last Admin: 10/26/17 09:27 Dose: 1 tab Nitroglycerin (Nitro-Bid 2% Oint) 1 ea TOP Q6 [facility] Last Admin: 10/27/17 05:00 Dose: 1 ea - Labs Labs: 10/27/17 06:27 10/27/17 06:27 PT 14.1 Seconds (9.8-13.1) H 10/22/17 04:35 INR 1.3 10/22/17 04:35 APTT 27.6 Seconds (25.6-37.1) 10/18/17 04:45 - Constitutional Appears: Cachectic, Chronically Ill, Other (mild respiratory distress while on O2 via NC ) - Head Exam Head Exam: ATRAUMATIC, NORMOCEPHALIC - Eye Exam Eye Exam: PERRL Pupil Exam: NORMAL ACCOMODATION - ENT Exam ENT Exam: Mucous Membranes Moist, Normal Exam - Neck Exam Neck Exam: Full ROM, Normal Inspection - Respiratory Exam Respiratory Exam: Decreased Breath Sounds, Prolonged Expiratory Phase, Rales. absent: Wheezes - Cardiovascular Exam Cardiovascular Exam: Irregular Rhythm - GI/Abdominal Exam GI & Abdominal Exam: Soft, Normal Bowel Sounds. absent: Distended, Guarding, Tenderness, Rebound - Rectal Exam Rectal Exam: Deferred - Extremities Exam Extremities Exam: Full ROM, Normal Inspection. absent: Pedal Edema - Back Exam Back Exam: NORMAL INSPECTION - Neurological Exam Neurological Exam: Alert, Awake, CN II-XII Intact, Oriented x3 - Psychiatric Exam Psychiatric exam: Anxious, Flat Affect - Skin Skin Exam: Dry, Pallor, Warm Assessment and Plan - Assessment and Plan (Free Text) Assessment: 86 y/o F with PMH CHF, pulmonary HTN, Chronic AFib & DMII presented to ED with complaints of shortness of breath was found to have CHF exacerbation with B/L pleura effusion. Patient's troponins were minimally elevated at that time. Patient was admitted to telemetry, and on 10/17, transferred to ICU because of somnolence. ABG was performed, and showed severe hypercapnia. Patient was placed on Bipap, then intubated for acute hypoercapneic respiratory failure . She was self-extubated on 10/19 with improved mentation. Right sided chest tube was placed by IR for pleural effusion and was removed . CXR showed minimal improvement of pleural effusion Per interventional cardiology, conservative treatment recommended at this time, not candidate for extensive procedures. Dr. smith consulted for a second opinion 1. Acute Hypercapneic Respiratory Failure most likely secondary to B/L pleural effusion, Pneumonia , CHF exacerbation was intubated and self extubated 10/19 At present saturating 93 % on 3 l O2 via NC, nort using BIPAP but with some degree of respiratory distress while talking Chest tube removed and repeat CXR showed no improvement in pleural effusion Will continue Diureses and O2 via NC Started Diamox, PCO2 40 Guarded prognosis Started ambulation Pulmonary following 2. Acute CHF exacerbation, combined systolic & dyastolic dysfunction Echo showed pulmonary HTN , , aortic regurgitation , MS , mitral regurgitation . normal EF Cardiology consult appreciated Will continue digoxin and Lasix Consulted Dr. Smith for possible TAVR, waiting response continue Diamox for metabolic alkalosis continue PT 3. Acute CO2 Narcosis - resolved See above continue O2 via NC 4. Hydropneumothorax pneumothorax development after chest tube placement now resolved chest tube removed 10/24 but CXR shows no improvement in pleural effusion continue diureses and low salt diet 5. Paroxysmal A. Fib Warfarin on hold due to elevated INR and chest tube placemnet Patient is currently rate controlled continue digoxin 6.Bilateral Pleural Effusion likely secondary to CHF Chest tube was placed and removed . Repeat CXR shows no improvement of pleural effusion but patient respiratory status has improved Fluid analysis was transudate continue diureses 7.HTN (controlled) 8.DM Type II Accucheck with coverage 9. Compressive Atelectasis given empiric IV Zosyn and Vancomycin 1 blood cx and pleural fluid cx positive for staph coag negativre Vanco and zosyn discontinued 10. Acute Elevated Troponin Unlikely secondary to ischemia continue ASA & Statin therapy 11. Prothrombin time increased due to coumadin warfarin on hold 12. Anemia of chronic disease Hgb stable 13. Hematuria H&H stable Lama removed Hold ASA and anticoagulation for now 14. DVT prophylaxis hold lovenox due to hematuria
[2017-10-27 09:10] LABS: PLATELET ESTIMATE NORMAL (NORMAL)
[2017-10-27] MEDS: Cholecalciferol 1,000 INTLU TAB PO SCH (10:00)
[2017-10-27] MEDS: Multivitamin With Minerals Tab PO SCH (10:00)
[2017-10-27] MEDS: Digoxin 250 mcg (0.25 mg) Tab PO SCH (10:33)
--- NOTE | 2017-10-27 11:24 | CP.PCM.PN ---
Subjective - Date & Time of Evaluation Date of Evaluation: 10/27/17 Time of Evaluation: 11:22 - Subjective Subjective: Transferred out of ICU overnight. Awake and alert at present. Claims she was OOB to chair for 7 hours yesteray. SpO2 on nasal oxygen @ 3 LPM-93%. Pulse 60's. Yesterday's CXR showed some improved right base aeration. She has not used BiPAP ventilator since early yesterday morning. Dullness is present posteriorly in the bases bilaterally. Breath sounds are diminished bilaterally and absent in the bases posteriorly. No audible wheezes, few rhonchi and occasional lower lobe rales. There is no dependant edema noted today, no cyanosis. TCO2 today is 40 (down from 42 yesterday). Ipratropium is now PRN w/o any complaint of SOB. Will continue on the same regimen and repeat CXR Sunday. BiPAP remains on standby. Objective - Vital Signs/Intake and Output Vital Signs (last 24 hours): Temp Pulse Resp BP Pulse Ox 97.4 F L 86 18 144/76 97 10/27/17 09:00 10/27/17 10:03 10/27/17 09:00 10/27/17 10:03 10/27/17 09:00 Intake and Output: 10/26/17 10/27/17 23:59 11:59 Intake Total 124 0 Output Total 375 Balance -251 0 - Medications Medications: Current Medications Acetaminophen (Tylenol 650mg/20.3ml Solution Ud) 650 mg PO Q6 PRN PRN Reason: Temperature Acetaminophen (Tylenol 650mg/20.3ml Solution Ud) 650 mg PO Q6 PRN PRN Reason: Pain, moderate (4-7) Last Admin: 10/19/17 23:15 Dose: 650 mg Acetazolamide (Diamox 500 Mg Inj) 500 mg IV Q12 [facility] Last Admin: 10/27/17 11:08 Dose: 500 mg Aspirin (Aspirin Chewable) 81 mg PO DAILY [facility] Last Admin: 10/26/17 09:24 Dose: Not Given Atorvastatin Calcium (Lipitor) 20 mg PO HS [facility] Last Admin: 10/26/17 22:05 Dose: 20 mg Cholecalciferol (Vitamin D) 2,000 intlu PO DAILY [facility] Last Admin: 10/27/17 10:00 Dose: 2,000 intlu Digoxin (Lanoxin) 0.25 mg PO DAILY [facility] Last Admin: 10/27/17 10:33 Dose: 0.25 mg Docusate Sodium (Colace) 100 mg PO BID PRN PRN Reason: Constipation Enoxaparin Sodium (Lovenox) 40 mg SC DAILY [facility] PRN Reason: Protocol Last Admin: 10/26/17 09:25 Dose: Not Given Ipratropium [place] (Atrovent) 0.5 mg IH RQ6 PRN PRN Reason: Wheezing Multivitamins/Minerals (Therapeutic-M Tab) 1 tab PO DAILY [facility] Last Admin: 10/27/17 10:00 Dose: 1 tab Nitroglycerin (Nitro-Bid 2% Oint) 1 ea TOP Q6 [facility] Last Admin: 10/27/17 10:03 Dose: 1 ea - Labs Labs: 10/27/17 06:27 10/27/17 06:27 PT 14.1 Seconds (9.8-13.1) H 10/22/17 04:35 INR 1.3 10/22/17 04:35 APTT 27.6 Seconds (25.6-37.1) 10/18/17 04:45 Assessment and Plan (1) Bilateral pleural effusion Status: Acute (2) Pulmonary hypertension Status: Chronic (3) Acute respiratory failure with hypercapnia Status: Acute
[2017-10-28 05:35] LABS: HEMOGLOBIN 9.3 g/dL (12.0-16.0); MEAN CELL VOLUME 84.2 fl (81.0-99.0); MEAN CORPUSCULAR HEMOGLOBIN 26.1 pg (27.0-31.0); RBC 3.57 Mil/uL (3.80-5.20); RED CELL DISTRIBUTION WIDTH 18.2 % (11.5-14.5); WHITE BLOOD COUNT 8.3 K/uL (4.8-10.8)
[2017-10-28 05:48] LABS: BLOOD UREA NITROGEN 13 mg/dl (7-17); CALCIUM 9.9 mg/dL (8.4-10.2); GFR AFRICAN-AMERICAN > 60; GFR NON-AFRICAN AMERICAN > 60
--- NOTE | 2017-10-28 07:35 | CP.PCM.PN ---
Subjective - Date & Time of Evaluation Date of Evaluation: 10/28/17 Time of Evaluation: 08:00 - Subjective Subjective: Patient seen and examined bedside. elderly , chronically ill female , lying in bed in NAD. Feeling more improved today. Saturating well with 3 L O2 via NC Denies any chest pain Able to sleep overnight.No acute issues overnight Objective - Vital Signs/Intake and Output Vital Signs (last 24 hours): Temp Pulse Resp BP Pulse Ox 97.9 F 97 H 18 142/77 97 10/28/17 05:00 10/28/17 05:00 10/28/17 05:00 10/28/17 05:00 10/28/17 05:00 - Medications Medications: Current Medications Acetaminophen (Tylenol 650mg/20.3ml Solution Ud) 650 mg PO Q6 PRN PRN Reason: Temperature Acetaminophen (Tylenol 650mg/20.3ml Solution Ud) 650 mg PO Q6 PRN PRN Reason: Pain, moderate (4-7) Last Admin: 10/19/17 23:15 Dose: 650 mg Acetazolamide (Diamox 500 Mg Inj) 500 mg IV Q12 [facility] Last Admin: 10/27/17 21:50 Dose: 500 mg Aspirin (Aspirin Chewable) 81 mg PO DAILY [facility] Last Admin: 10/26/17 09:24 Dose: Not Given Atorvastatin Calcium (Lipitor) 20 mg PO HS [facility] Last Admin: 10/27/17 21:50 Dose: 20 mg Cholecalciferol (Vitamin D) 2,000 intlu PO DAILY [facility] Last Admin: 10/27/17 10:00 Dose: 2,000 intlu Digoxin (Lanoxin) 0.25 mg PO DAILY [facility] Last Admin: 10/27/17 10:33 Dose: 0.25 mg Docusate Sodium (Colace) 100 mg PO BID PRN PRN Reason: Constipation Enoxaparin Sodium (Lovenox) 40 mg SC DAILY [facility] PRN Reason: Protocol Last Admin: 10/26/17 09:25 Dose: Not Given Ipratropium [place] (Atrovent) 0.5 mg IH RQ6 PRN PRN Reason: Wheezing Multivitamins/Minerals (Therapeutic-M Tab) 1 tab PO DAILY [facility] Last Admin: 10/27/17 10:00 Dose: 1 tab Nitroglycerin (Nitro-Bid 2% Oint) 1 ea TOP Q6 [facility] Last Admin: 10/27/17 21:51 Dose: 1 ea - Labs Labs: 10/28/17 04:25 10/28/17 04:25 PT 14.1 Seconds (9.8-13.1) H 10/22/17 04:35 INR 1.3 10/22/17 04:35 APTT 27.6 Seconds (25.6-37.1) 10/18/17 04:45 - Constitutional Appears: Non-toxic, Cachectic, Chronically Ill - Head Exam Head Exam: ATRAUMATIC, NORMOCEPHALIC - Eye Exam Eye Exam: PERRL Pupil Exam: NORMAL ACCOMODATION - ENT Exam ENT Exam: Mucous Membranes Moist, Normal Exam - Neck Exam Neck Exam: Normal Inspection - Respiratory Exam Respiratory Exam: Decreased Breath Sounds (bibasilar ), Rales. absent: Rhonchi , Wheezes - Cardiovascular Exam Cardiovascular Exam: Irregular Rhythm, Murmur (systolic) - GI/Abdominal Exam GI & Abdominal Exam: Soft, Normal Bowel Sounds. absent: Guarding, Tenderness, Rebound - Rectal Exam Rectal Exam: Deferred - Extremities Exam Extremities Exam: Pedal Edema (1+) - Back Exam Back Exam: NORMAL INSPECTION - Neurological Exam Neurological Exam: Alert, Awake, CN II-XII Intact, Oriented x3 - Psychiatric Exam Psychiatric exam: Normal Affect - Skin Skin Exam: Dry, Pallor, Warm Assessment and Plan - Assessment and Plan (Free Text) Assessment: 86 y/o F with PMH CHF, pulmonary HTN, Chronic AFib & DMII presented to ED with complaints of shortness of breath was found to have CHF exacerbation with B/L pleura effusion. Patient's troponins were minimally elevated at that time. Patient was admitted to telemetry, and on 10/17, transferred to ICU because of somnolence. ABG was performed, and showed severe hypercapnia. Patient was placed on Bipap, then intubated for acute hypoercapneic respiratory failure . She was self-extubated on 10/19 with improved mentation. Right sided chest tube was placed by IR for pleural effusion and was removed . CXR showed minimal improvement of pleural effusion Per interventional cardiology, conservative treatment recommended at this time, not candidate for extensive procedures. Dr. Cunningham consulted for a second opinion 1. Acute Hypercapneic Respiratory Failure most likely secondary to B/L pleural effusion, Pneumonia , CHF exacerbation was intubated and self extubated 10/19 At present saturating 93 % on 3 l O2 via NC, not using BIPAP but with some degree of respiratory distress while talking Chest tube removed and repeat CXR showed no improvement in pleural effusion Will continue Diureses and O2 via NC Started Diamox and PCO2 improving to 33 from 42 Guarded prognosis Started ambulation and continue PT Pulmonary following 2. Acute CHF exacerbation, combined systolic & dyastolic dysfunction Echo showed pulmonary HTN , , aortic regurgitation , MS , mitral regurgitation . normal EF Cardiology consult appreciated Will continue digoxin and Eliseo Consulted Dr. Cunningham for possible TAVR, waiting response continue Diamox for metabolic alkalosis continue PT 3. Acute CO2 Narcosis - resolved See above continue O2 via NC 4. Hydropneumothorax pneumothorax development after chest tube placement now resolved chest tube removed 10/24 but CXR shows no improvement in pleural effusion continue diureses and low salt diet 5. Paroxysmal A. Fib Warfarin on hold due to elevated INR and chest tube placemnet Patient is currently rate controlled continue digoxin 6.Bilateral Pleural Effusion likely secondary to CHF Chest tube was placed and removed . Repeat CXR shows no improvement of pleural effusion but patient respiratory status has improved Fluid analysis was transudate continue diureses 7.HTN (controlled) 8.DM Type II Accucheck with coverage 9. Compressive Atelectasis given empiric IV Zosyn and Vancomycin 1 blood cx and pleural fluid cx positive for staph coag negativre Vanco and zosyn discontinued 10. Acute Elevated Troponin Unlikely secondary to ischemia continue Statin therapy ASA was on hold due to hematuria. Can resume today 11. Prothrombin time increased due to coumadin warfarin on hold 12. Anemia of chronic disease Hgb stable 13. Hematuria--cleared H&H stable Lama removed can resume ASA 14. DVT prophylaxis resume lovenox since hematuria resolved
[2017-10-28] MEDS: Digoxin 250 mcg (0.25 mg) Tab PO SCH (08:59)
[2017-10-28] MEDS: Cholecalciferol 1,000 INTLU TAB PO SCH (09:00)
[2017-10-28] MEDS: Multivitamin With Minerals Tab PO SCH (09:00)
[2017-10-28] MEDS: Nitroglycerin 2% Ointment Foilpak UD TOP SCH ×3 (10:00→21:57)
[2017-10-29] MEDS: Nitroglycerin 2% Ointment Foilpak UD TOP SCH ×5 (05:17→22:04)
[2017-10-29 05:48] LABS: HEMOGLOBIN 9.5 g/dL (12.0-16.0); MEAN CELL VOLUME 84.6 fl (81.0-99.0); MEAN CORPUSCULAR HEMOGLOBIN 26.2 pg (27.0-31.0); RBC 3.61 Mil/uL (3.80-5.20); RED CELL DISTRIBUTION WIDTH 18.6 % (11.5-14.5); WHITE BLOOD COUNT 11.7 K/uL (4.8-10.8)
[2017-10-29 05:52] LABS: BLOOD UREA NITROGEN 12 mg/dl (7-17); CALCIUM 9.8 mg/dL (8.4-10.2); GFR AFRICAN-AMERICAN > 60; GFR NON-AFRICAN AMERICAN > 60
--- NOTE | 2017-10-29 08:28 | RAD ---
Date of service: 10/29/2017 HISTORY: pleural effusion COMPARISON: Frontal chest radiograph 10/26/2017. FINDINGS: LUNGS: Bilateral small pleural effusions are reiterated though slightly diminished at the right and likely unchanged at the left. Underlying bilateral airspace disease not excluded the right greater than left kacey thoraces. No pneumothorax bilaterally. PLEURA: As above. CARDIOVASCULAR: Stable cardiomediastinal silhouette. No pulmonary vascular derangement appreciated. OSSEOUS STRUCTURES: No significant abnormalities. VISUALIZED UPPER ABDOMEN: Normal. OTHER FINDINGS: None. IMPRESSION: Stable mild bilateral pleural effusions greater the right than left with underlying bilateral airspace disease difficult to exclude. Potential reduction in right pleural effusion.
[2017-10-29] MEDS: Digoxin 250 mcg (0.25 mg) Tab PO SCH (09:07)
[2017-10-29] MEDS: Enoxaparin 40 mg Syringe SC SCH (09:08)
[2017-10-29] MEDS: Multivitamin With Minerals Tab PO SCH (09:08)
[2017-10-29] MEDS: Cholecalciferol 1,000 INTLU TAB PO SCH (09:09)
--- NOTE | 2017-10-29 10:36 | CP.PCM.PN ---
Subjective - Date & Time of Evaluation Date of Evaluation: 10/29/17 Time of Evaluation: 09:30 - Subjective Subjective: Patient seen and examined bedside. Elderly , chronically ill female , lying in bed on 3 L O2 via NC, saturating 98-100%, appears weak, pale and tired . States that was not able to sleep last night BP 142/55 HR ranging 55-102 WBC 11 Hgb 9.2 ABG today shows PCO2 72 PO2 79 HCO3 31 Ph 7.31 CX shows bilateral pleural effusion more on the right Denies any chest pain Objective - Vital Signs/Intake and Output Vital Signs (last 24 hours): Temp Pulse Resp BP Pulse Ox 98.1 F 109 H 18 121/57 L 100 10/29/17 08:09 10/29/17 09:36 10/29/17 08:09 10/29/17 09:36 10/29/17 08:09 - Medications Medications: Current Medications Acetaminophen (Tylenol 650mg/20.3ml Solution Ud) 650 mg PO Q6 PRN PRN Reason: Temperature Acetaminophen (Tylenol 650mg/20.3ml Solution Ud) 650 mg PO Q6 PRN PRN Reason: Pain, moderate (4-7) Last Admin: 10/19/17 23:15 Dose: 650 mg Acetazolamide (Diamox 500 Mg Inj) 500 mg IV Q12 [facility] Last Admin: 10/29/17 09:07 Dose: 500 mg Aspirin (Aspirin Chewable) 81 mg PO DAILY [facility] Last Admin: 10/29/17 09:06 Dose: 81 mg Atorvastatin Calcium (Lipitor) 20 mg PO HS [facility] Last Admin: 10/28/17 21:56 Dose: 20 mg Cholecalciferol (Vitamin D) 2,000 intlu PO DAILY [facility] Last Admin: 10/29/17 09:09 Dose: 2,000 intlu Digoxin (Lanoxin) 0.25 mg PO DAILY [facility] Last Admin: 10/29/17 09:07 Dose: 0.25 mg Docusate Sodium (Colace) 100 mg PO BID PRN PRN Reason: Constipation Enoxaparin Sodium (Lovenox) 40 mg SC DAILY [facility] PRN Reason: Protocol Last Admin: 10/29/17 09:08 Dose: 40 mg Ipratropium [place] (Atrovent) 0.5 mg IH RQ6 PRN PRN Reason: Wheezing Multivitamins/Minerals (Therapeutic-M Tab) 1 tab PO DAILY [facility] Last Admin: 10/29/17 09:08 Dose: 1 tab Nitroglycerin (Nitro-Bid 2% Oint) 1 ea TOP Q6 [facility] Last Admin: 10/29/17 09:36 Dose: 1 ea - Labs Labs: 10/29/17 04:20 10/29/17 04:20 PT 14.1 Seconds (9.8-13.1) H 10/22/17 04:35 INR 1.3 10/22/17 04:35 APTT 27.6 Seconds (25.6-37.1) 10/18/17 04:45 - Constitutional Appears: In Acute Distress (mild respiratory distress ), Cachectic, Chronically Ill, Other (pale , weak ) - Head Exam Head Exam: ATRAUMATIC, NORMOCEPHALIC - Eye Exam Eye Exam: PERRL Pupil Exam: NORMAL ACCOMODATION - ENT Exam ENT Exam: Mucous Membranes Moist, Normal Exam - Neck Exam Neck Exam: Normal Inspection - Respiratory Exam Respiratory Exam: Decreased Breath Sounds (bibasilar more on the right base ), Prolonged Expiratory Phase, Rales, Respiratory Distress. absent: Rhonchi, Wheezes - Cardiovascular Exam Cardiovascular Exam: Irregular Rhythm. absent: JVD - GI/Abdominal Exam GI & Abdominal Exam: Soft, Normal Bowel Sounds. absent: Distended, Guarding, Tenderness, Rebound - Rectal Exam Rectal Exam: Deferred - Extremities Exam Extremities Exam: Normal Inspection. absent: Calf Tenderness, Pedal Edema - Back Exam Back Exam: NORMAL INSPECTION - Neurological Exam Neurological Exam: Alert, Awake, CN II-XII Intact, Oriented x3 - Psychiatric Exam Psychiatric exam: Normal Affect - Skin Skin Exam: Dry, Pallor, Warm Assessment and Plan - Assessment and Plan (Free Text) Assessment: 86 y/o F with PMH CHF, pulmonary HTN, Chronic AFib & DMII presented to ED with complaints of shortness of breath was found to have CHF exacerbation with B/L pleura effusion. Patient's troponins were minimally elevated at that time. Patient was admitted to telemetry, and on 10/17, transferred to ICU because of somnolence. ABG was performed, and showed severe hypercapnia. Patient was placed on Bipap, then intubated for acute hypoercapneic respiratory failure . She was self-extubated on 10/19 with improved mentation. Right sided chest tube was placed by IR for pleural effusion and was removed . CXR showed minimal improvement of pleural effusion Per interventional cardiology, conservative treatment recommended at this time, not a candidate for extensive procedures. Dr. Cunningham consulted for a second opinion 1. Acute Hypercapneic Respiratory Failure most likely secondary to B/L pleural effusion, Pneumonia , CHF exacerbation was intubated and self extubated 10/19 At present saturating 98 % on 3 l O2 via NC, not using BIPAP but with some degree of respiratory distress and ABG shows PCO2 72 PO2 79 ( her baseline). will use BIPAP at night since patient is somewhat tired and somnolent at times Chest tube removed and repeat CXR today showed still bilateral pleural effusion more on the right Will continue Diureses and O2 via NC Started Diamox and PCO2 improving to 31 from 42 Guarded prognosis Started ambulation and continue PT Pulmonary following 2. Acute CHF exacerbation, combined systolic & dyastolic dysfunction Echo showed pulmonary HTN , , aortic regurgitation , MS , mitral regurgitation . normal EF Cardiology consult appreciated Will continue digoxin and Eliseo Consulted Dr. Cunningham for possible valve repair.Patient will be referred to [facility] for a second opinion continue Diamox for metabolic alkalosis continue PT 3. Acute CO2 Narcosis -PCO2 still elevated 72 Will use Bipap at night continue O2 via NC 4. Hydropneumothorax pneumothorax development after chest tube placement now resolved chest tube removed 10/24 but CXR shows no improvement in pleural effusion continue diureses and low salt diet Repeat CXR today shows bilateral pleural effusion more on the right 5. Paroxysmal A. Fib Warfarin on hold due to elevated INR and chest tube placement Patient is currently rate controlled continue digoxin 6.Bilateral Pleural Effusion likely secondary to CHF Chest tube was placed and removed . Repeat CXR shows still bilateral pleural effusion more on the right Fluid analysis was transudate continue diureses 7.HTN (controlled) 8.DM Type II Accucheck with coverage 9. Compressive Atelectasis given empiric IV Zosyn and Vancomycin 1 blood cx and pleural fluid cx positive for staph coag negativre Vanco and zosyn discontinued 10. Acute Elevated Troponin Unlikely secondary to ischemia continue Statin therapy ASA was on hold due to hematuria and now resumed 11. Prothrombin time increased due to coumadin warfarin on hold 12. Anemia of chronic disease Hgb stable 13. Hematuria--cleared H&H stable Lama removed resumed ASA 14. DVT prophylaxis resumed lovenox since hematuria resolved Dispo : plan for [facility] transfer
--- NOTE | 2017-10-29 11:18 | CP.PCM.PN ---
<Eryn Au - Last Filed: 10/29/17 11:30> Subjective - Date & Time of Evaluation Date of Evaluation: 10/29/17 Time of Evaluation: 08:37 - Subjective Subjective: -Patient seen and examined this AM. Patient was downgraded from the ICU to telemetry. -Vitals: Pulse-106, otherwise stable with spo2-98%, BP-130/60, RR-18 Temp- 98.4F -WBC increased to 11.7. Will continue to follow WBC. -Patient laying upright in bed on 3L of NC. -CXR was performed this AM, unchanged from previous CXR performed on 10/26 which showed small, stable b/l pleural effusions. -Will DC Bipap today. -Dullness to percussion in b/l lung bases. -No wheezes or bronchial breath sounds auscultated. -Repeat thoracentesis if indicated. Objective - Vital Signs/Intake and Output Vital Signs (last 24 hours): Temp Pulse Resp BP Pulse Ox 98.1 F 109 H 18 121/57 L 100 10/29/17 08:09 10/29/17 09:36 10/29/17 08:09 10/29/17 09:36 10/29/17 08:09 - Medications Medications: Current Medications Acetaminophen (Tylenol 650mg/20.3ml Solution Ud) 650 mg PO Q6 PRN PRN Reason: Temperature Acetaminophen (Tylenol 650mg/20.3ml Solution Ud) 650 mg PO Q6 PRN PRN Reason: Pain, moderate (4-7) Last Admin: 10/19/17 23:15 Dose: 650 mg Acetazolamide (Diamox 500 Mg Inj) 500 mg IV Q12 [facility] Last Admin: 10/29/17 09:07 Dose: 500 mg Aspirin (Aspirin Chewable) 81 mg PO DAILY [facility] Last Admin: 10/29/17 09:06 Dose: 81 mg Atorvastatin Calcium (Lipitor) 20 mg PO HS [facility] Last Admin: 10/28/17 21:56 Dose: 20 mg Cholecalciferol (Vitamin D) 2,000 intlu PO DAILY [facility] Last Admin: 10/29/17 09:09 Dose: 2,000 intlu Digoxin (Lanoxin) 0.25 mg PO DAILY [facility] Last Admin: 10/29/17 09:07 Dose: 0.25 mg Docusate Sodium (Colace) 100 mg PO BID PRN PRN Reason: Constipation Enoxaparin Sodium (Lovenox) 40 mg SC DAILY [facility] PRN Reason: Protocol Last Admin: 10/29/17 09:08 Dose: 40 mg Ipratropium [place] (Atrovent) 0.5 mg IH RQ6 PRN PRN Reason: Wheezing Multivitamins/Minerals (Therapeutic-M Tab) 1 tab PO DAILY [facility] Last Admin: 10/29/17 09:08 Dose: 1 tab Nitroglycerin (Nitro-Bid 2% Oint) 1 ea TOP Q6 [facility] Last Admin: 10/29/17 09:36 Dose: 1 ea - Labs Labs: 10/29/17 04:20 10/29/17 04:20 PT 14.1 Seconds (9.8-13.1) H 10/22/17 04:35 INR 1.3 10/22/17 04:35 APTT 27.6 Seconds (25.6-37.1) 10/18/17 04:45 <Tu Richardson - Last Filed: 10/30/17 07:11> Subjective - Subjective Subjective: Seen and examined together with the residents on rounds. Physical findings and ancillary studies were reviewed. Diagnosis and plan of care were formulated after discussion. The entry in the EMR by the resident accurately reflects this encounter. Objective - Vital Signs/Intake and Output Vital Signs (last 24 hours): Temp Pulse Resp BP Pulse Ox 98.5 F 86 18 136/66 98 10/30/17 05:19 10/30/17 06:26 10/30/17 05:19 10/30/17 06:26 10/30/17 05:19 Intake and Output: 10/29/17 10/30/17 23:59 11:59 Intake Total 860 Balance 860 - Medications Medications: Current Medications Acetaminophen (Tylenol 650mg/20.3ml Solution Ud) 650 mg PO Q6 PRN PRN Reason: Temperature Acetaminophen (Tylenol 650mg/20.3ml Solution Ud) 650 mg PO Q6 PRN PRN Reason: Pain, moderate (4-7) Last Admin: 10/19/17 23:15 Dose: 650 mg Acetazolamide (Diamox 500 Mg Inj) 500 mg IV Q12 [facility] Last Admin: 10/29/17 22:01 Dose: 500 mg Aspirin (Aspirin Chewable) 81 mg PO DAILY [facility] Last Admin: 10/29/17 09:06 Dose: 81 mg Atorvastatin Calcium (Lipitor) 20 mg PO HS [facility] Last Admin: 10/29/17 22:00 Dose: 20 mg Cholecalciferol (Vitamin D) 2,000 intlu PO DAILY [facility] Last Admin: 10/29/17 09:09 Dose: 2,000 intlu Digoxin (Lanoxin) 0.25 mg PO DAILY [facility] Last Admin: 10/29/17 09:07 Dose: 0.25 mg Docusate Sodium (Colace) 100 mg PO BID PRN PRN Reason: Constipation Enoxaparin Sodium (Lovenox) 40 mg SC DAILY [facility] PRN Reason: Protocol Last Admin: 10/29/17 09:08 Dose: 40 mg Ipratropium [place] (Atrovent) 0.5 mg IH RQ6 PRN PRN Reason: Wheezing Last Admin: 10/30/17 00:11 Dose: 0.5 mg Multivitamins/Minerals (Therapeutic-M Tab) 1 tab PO DAILY [facility] Last Admin: 10/29/17 09:08 Dose: 1 tab Nitroglycerin (Nitro-Bid 2% Oint) 1 ea TOP Q6 [facility] Last Admin: 10/30/17 06:26 Dose: 1 ea - Labs Labs: 10/30/17 04:20 10/30/17 04:20 PT 14.1 Seconds (9.8-13.1) H 10/22/17 04:35 INR 1.3 10/22/17 04:35 APTT 27.6 Seconds (25.6-37.1) 10/18/17 04:45 Assessment and Plan (1) Bilateral pleural effusion Status: Acute (2) Pulmonary hypertension Status: Chronic (3) Acute respiratory failure with hypercapnia Status: Acute
[2017-10-29 16:17] LABS: ABG ALLEN TEST YES; ARTERIAL BLOOD GAS HCO3 31.5 mmol/L (21-28); ARTERIAL BLOOD GAS HEMOGLOBIN 9.1 g/dL (11.7-17.4); ARTERIAL BLOOD GAS O2 CAPACITY 12.4 mL/dL (16-24); ARTERIAL BLOOD GAS O2 CONTENT 12.3 ML/dL (15-23); ARTERIAL BLOOD GAS O2 SAT 99.3 % (95-98); ARTERIAL BLOOD GAS PCO2 72 mm/Hg (35-45); ARTERIAL BLOOD GAS PH 7.31 (7.35-7.45); ARTERIAL BLOOD GAS PO2 79 mm/Hg (80-100); ARTERIAL BLOOD GAS TCO2 38.5 mmol/L (22-28)
[2017-10-30 05:47] LABS: HEMOGLOBIN 8.6 g/dL (12.0-16.0); MEAN CELL VOLUME 83.8 fl (81.0-99.0); MEAN CORPUSCULAR HEMOGLOBIN 25.8 pg (27.0-31.0); MEAN CORPUSCULAR HGB CONC 30.8 g/dL (33.0-37.0); RBC 3.32 Mil/uL (3.80-5.20); RED CELL DISTRIBUTION WIDTH 18.4 % (11.5-14.5); WHITE BLOOD COUNT 9.3 K/uL (4.8-10.8)
[2017-10-30 06:05] LABS: BLOOD UREA NITROGEN 15 mg/dl (7-17); CALCIUM 10.1 mg/dL (8.4-10.2); GFR AFRICAN-AMERICAN > 60; GFR NON-AFRICAN AMERICAN > 60
[2017-10-30] MEDS: Nitroglycerin 2% Ointment Foilpak UD TOP SCH ×3 (06:26→16:26)
[2017-10-30] MEDS: Digoxin 250 mcg (0.25 mg) Tab PO SCH (09:41)
[2017-10-30] MEDS: Enoxaparin 40 mg Syringe SC SCH (09:42)
[2017-10-30] MEDS: Multivitamin With Minerals Tab PO SCH (09:42)
[2017-10-30] MEDS: Cholecalciferol 1,000 INTLU TAB PO SCH (09:43)
[2017-10-30 09:53] VITALS: PULSE 94
--- NOTE | 2017-10-30 11:35 | CP.PCM.PN ---
Subjective - Date & Time of Evaluation Date of Evaluation: 10/30/17 Time of Evaluation: 08:31 - Subjective Subjective: -Patient was seen and examined this AM. Her grandson was present at the bedside. Last night, she became lethargic, and was given Bipap. She appears more fatigued this morning. -Vitals: Temp- 98.5F P-86 BP-136/66 RR-18 O2 sat 93% on 3L of NC (goal for spo2 is b/w 93-95% to prevent loss of respiratory drive) -Decreased breath sounds R>L -CXR revealed slightly increased effusion on the right; Lasix 40mg QD IVP was added. -Changed Acetazolamide 500mg BID to Acetazolamide 500mg QD -Will continue to monitor. Objective - Vital Signs/Intake and Output Vital Signs (last 24 hours): Temp Pulse Resp BP Pulse Ox 98.2 F 94 H 20 127/55 L 98 10/30/17 08:05 10/30/17 09:43 10/30/17 08:05 10/30/17 09:52 10/30/17 08:05 - Medications Medications: Current Medications Acetaminophen (Tylenol 650mg/20.3ml Solution Ud) 650 mg PO Q6 PRN PRN Reason: Temperature Acetaminophen (Tylenol 650mg/20.3ml Solution Ud) 650 mg PO Q6 PRN PRN Reason: Pain, moderate (4-7) Last Admin: 10/19/17 23:15 Dose: 650 mg Acetazolamide (Diamox 500 Mg Inj) 500 mg IV DAILY [facility] Last Admin: 10/30/17 09:40 Dose: 500 mg Aspirin (Aspirin Chewable) 81 mg PO DAILY [facility] Last Admin: 10/30/17 09:37 Dose: 81 mg Atorvastatin Calcium (Lipitor) 20 mg PO HS [facility] Last Admin: 10/29/17 22:00 Dose: 20 mg Cholecalciferol (Vitamin D) 2,000 intlu PO DAILY [facility] Last Admin: 10/30/17 09:43 Dose: 2,000 intlu Digoxin (Lanoxin) 0.25 mg PO DAILY [facility] Last Admin: 10/30/17 09:41 Dose: 0.25 mg Docusate Sodium (Colace) 100 mg PO BID PRN PRN Reason: Constipation Enoxaparin Sodium (Lovenox) 40 mg SC DAILY [facility] PRN Reason: Protocol Last Admin: 10/30/17 09:42 Dose: 40 mg Furosemide (Lasix) 40 mg IVP DAILY [facility] Last Admin: 10/30/17 09:52 Dose: 40 mg Ipratropium [place] (Atrovent) 0.5 mg IH RQ6 PRN PRN Reason: Wheezing Last Admin: 10/30/17 00:11 Dose: 0.5 mg Multivitamins/Minerals (Therapeutic-M Tab) 1 tab PO DAILY [facility] Last Admin: 10/30/17 09:42 Dose: 1 tab Nitroglycerin (Nitro-Bid 2% Oint) 1 ea TOP Q6 [facility] Last Admin: 10/30/17 09:43 Dose: 1 ea - Labs Labs: 10/30/17 04:20 10/30/17 04:20 PT 14.1 Seconds (9.8-13.1) H 10/22/17 04:35 INR 1.3 10/22/17 04:35 APTT 27.6 Seconds (25.6-37.1) 10/18/17 04:45
--- NOTE | 2017-10-30 15:06 | CP.PCM.DIS ---
Provider - Provider Date of Admission: 10/15/17 16:42 Attending physician: Sly Hein MD Primary care physician: Dr. Nabila Zamora Consults: Pulmonary consult cardiology consult PT consult Time Spent in preparation of Discharge (in minutes): 20 Hospital Course - Lab Results Lab Results: Micro Results 10/27/17 13:39 Naris MRSA Culture (Admit) - Final MRSA NOT DETECTED 10/17/17 14:57 Body Fluid - Lung-Left Gram Stain - Final 10/17/17 14:57 Body Fluid - Lung-Left Body Fluid Culture - Final Coagulase Neg Staphylococcus 10/15/17 14:45 Blood-Venous Blood Culture - Final NO GROWTH AFTER 5 DAYS 10/15/17 14:45 Blood-Venous Gram Stain - Final TEST NOT PERFORMED 10/15/17 14:50 Blood-Venous S.aureus & Coag-Neg Staph PNA FISH - Final 10/15/17 14:50 Blood-Venous Blood Culture - Final Coagulase Neg Staphylococcus 10/15/17 14:50 Blood-Venous Gram Stain - Final 10/17/17 06:23 Naris MRSA Culture (Admit) - Final MRSA NOT DETECTED Most Recent Lab Values WBC 9.3 K/uL (4.8-10.8) 10/30/17 04:20 RBC 3.32 Mil/uL (3.80-5.20) L 10/30/17 04:20 Hgb 8.6 g/dL (12.0-16.0) L 10/30/17 04:20 Hct 27.8 % (34.0-47.0) L 10/30/17 04:20 MCV 83.8 fl (81.0-99.0) 10/30/17 04:20 MCH 25.8 pg (27.0-31.0) L 10/30/17 04:20 MCHC 30.8 g/dL (33.0-37.0) L 10/30/17 04:20 RDW 18.4 % (11.5-14.5) H 10/30/17 04:20 Plt Count 363 K/uL (130-400) 10/30/17 04:20 MPV 8.0 fl (7.2-11.7) 10/27/17 06:27 Neut % (Auto) 80.2 % (50.0-75.0) H 10/27/17 06:27 Lymph % (Auto) 7.9 % (20.0-40.0) L 10/27/17 06:27 Bradley % (Auto) 10.6 % (0.0-10.0) H 10/27/17 06:27 Eos % (Auto) 0.8 % (0.0-4.0) 10/27/17 06:27 Baso % (Auto) 0.5 % (0.0-2.0) 10/27/17 06:27 Neut # (Auto) 7.4 K/uL (1.8-7.0) H 10/27/17 06:27 Lymph # (Auto) 0.7 K/uL (1.0-4.3) L 10/27/17 06:27 Bradley # (Auto) 1.0 K/uL (0.0-0.8) H 10/27/17 06:27 Eos # (Auto) 0.1 K/uL (0.0-0.7) 10/27/17 06:27 Baso # (Auto) 0.0 K/uL (0.0-0.2) 10/27/17 06:27 Neutrophils % (Manual) 85 % (42-75) H 10/27/17 06:27 Band Neutrophils % 1 % (0-2) 10/20/17 05:25 Lymphocytes % (Manual) 7 % (20-50) L 10/27/17 06:27 Reactive Lymphs % 1 % (0-0) H 10/15/17 14:50 Monocytes % (Manual) 6 % (0-10) 10/27/17 06:27 Eosinophils % (Manual) 1 % (0-7) 10/27/17 06:27 Basophils % (Manual) 1 % (0-2) 10/27/17 06:27 Myelocytes % 2 % (0-0) H 10/20/17 05:25 Platelet Estimate Normal (NORMAL) 10/27/17 06:27 Large Platelets Present 10/20/17 05:25 Hypochromasia (manual) Slight 10/20/17 05:25 Poikilocytosis (manual Slight 10/27/17 06:27 Anisocytosis (manual) Slight 10/27/17 06:27 Target Cells Moderate 10/20/17 05:25 Ovalocytes Slight 10/20/17 05:25 Stomatocytes Slight 10/15/17 14:50 PT 14.1 Seconds (9.8-13.1) H 10/22/17 04:35 INR 1.3 10/22/17 04:35 APTT 27.6 Seconds (25.6-37.1) 10/18/17 04:45 D-Dimer, Quantitative 224 ng/mlDDU (0-230) 10/15/17 14:50 Puncture Site Rr 10/17/17 08:20 pCO2 72 mm/Hg (35-45) H* 10/29/17 16:10 pO2 79 mm/Hg (80-100) L 10/29/17 16:10 HCO3 31.5 mmol/L (21-28) H 10/29/17 16:10 ABG pH 7.31 (7.35-7.45) L 10/29/17 16:10 ABG Total CO2 38.5 mmol/L (22-28) H 10/29/17 16:10 ABG O2 Saturation 99.3 % (95-98) H 10/29/17 16:10 ABG O2 Content 12.3 ML/dL (15-23) L 10/29/17 16:10 ABG Base Excess 8.4 mmol/L (-2.0-3.0) H 10/29/17 16:10 ABG Hemoglobin 9.1 g/dL (11.7-17.4) L 10/29/17 16:10 ABG Carboxyhemoglobin 2.4 % (0.5-1.5) H 10/29/17 16:10 POC ABG HHb (Measured) 0.7 % (0.0-5.0) 10/29/17 16:10 ABG Methemoglobin 1.3 % (0.0-3.0) 10/29/17 16:10 ABG O2 Capacity 12.4 mL/dL (16-24) L 10/29/17 16:10 Tucker Test Yes 10/29/17 16:10 ABG Potassium 4.7 mmol/L (3.6-5.2) 10/17/17 14:30 A-a O2 Difference 31.0 mm/Hg 10/29/17 16:10 Hgb O2 Saturation 95.6 % (95.0-98.0) 10/29/17 16:10 Sodium 137.0 mmol/L (132-148) 10/17/17 14:30 Chloride 100.0 mmol/L (98-107) 10/17/17 14:30 Glucose 119 mg/dL (65-105) H 10/17/17 14:30 Lactate 0.5 mmol/L (0.7-2.1) L 10/17/17 14:30 Vent Mode Bipap 10/21/17 09:40 Mechanical Rate 10/19/17 03:52 FiO2 28.0 % 10/29/17 16:10 Inspiratory BiPAP 12 10/21/17 09:40 Expiratory BiPAP 6 10/21/17 09:40 Crit Value Called To 10/29/17 16:10 Crit Value Called By 10/29/17 16:10 Crit Value Read Back Y 10/29/17 16:10 Blood Gas Notified Time 1616 10/29/17 16:10 Sodium 141 mmol/l (132-148) 10/30/17 04:20 Potassium 4.1 MMOL/L (3.6-5.0) 10/30/17 04:20 Chloride 107 mmol/L (98-107) 10/30/17 04:20 Carbon Dioxide 34 mmol/L (22-30) H 10/30/17 04:20 Anion Gap 4 (10-20) L 10/30/17 04:20 BUN 15 mg/dl (7-17) 10/30/17 04:20 Creatinine 0.8 mg/dl (0.7-1.2) 10/30/17 04:20 Est GFR ( Amer) > 60 10/30/17 04:20 Est GFR (Non-Af Amer) > 60 10/30/17 04:20 POC Glucose (mg/dL) 136 mg/dL (65-110) H 10/30/17 10:54 Random Glucose 97 mg/dL (65-105) 10/30/17 04:20 Hemoglobin A1c 6.0 % (4.2-6.5) 10/16/17 05:05 Calcium 10.1 mg/dL (8.4-10.2) 10/30/17 04:20 Phosphorus 3.0 mg/dl (2.5-4.5) 10/23/17 05:46 Magnesium 1.9 MG/DL (1.6-2.3) 10/26/17 05:00 Total Bilirubin 0.6 mg/dl (0.2-1.3) 10/26/17 05:00 AST 31 U/L (14-36) 10/26/17 05:00 ALT 26 U/L (9-52) 10/26/17 05:00 Alkaline Phosphatase 53 U/L (38-126) 10/26/17 05:00 Lactate Dehydrogenase 528 U/L (313-618) 10/17/17 11:58 Troponin I 0.2620 ng/mL (0.00-0.120) H* 10/16/17 06:00 NT-Pro-B Natriuret Pep 4330 pg/ml (0-900) H 10/15/17 14:50 Total Protein 6.4 G/DL (6.3-8.2) 10/26/17 05:00 Albumin 3.3 g/dL (3.5-5.0) L 10/26/17 05:00 Globulin 3.2 gm/dL (2.2-3.9) 10/26/17 05:00 Albumin/Globulin Ratio 1.0 (1.0-2.1) 10/26/17 05:00 TSH 3rd Generation 1.12 mIU/ML (0.46-4.68) 10/16/17 05:05 Arterial Blood Potassium 4.7 mmol/L (3.6-5.2) 10/17/17 14:30 Urine Color Red (YELLOW) 10/26/17 09:00 Urine Clarity Turbid (Clear) 10/26/17 09:00 Urine pH 8.0 (5.0-8.0) 10/26/17 09:00 Ur Specific Max 1.010 (1.003-1.030) 10/26/17 09:00 Urine Protein 100 mg/dL (NEGATIVE) 10/26/17 09:00 Urine Glucose (UA) Neg mg/dL (Normal) 10/26/17 09:00 Urine Ketones Negative mg/dL (NEGATIVE) 10/26/17 09:00 Urine Blood Large (NEGATIVE) 10/26/17 09:00 Urine Nitrate Negative (NEGATIVE) 08/17/18 09:00 Urine Bilirubin Negative (NEGATIVE) 10/26/17 09:00 Urine Urobilinogen 0.2-1.0 mg/dL (0.2-1.0) 10/26/17 09:00 Ur Leukocyte Esterase Mod Julianna/uL (Negative) 10/26/17 09:00 Urine RBC (Auto) 4156 /hpf (0-3) H 10/26/17 09:00 Urine WBC Clumps (Auto) Many /hpf (NONE) H 10/26/17 09:00 Urine Microscopic WBC 183 /hpf (0-5) H 10/26/17 09:00 Urine Bacteria Rare (<OCC) 10/26/17 09:00 Fluid Source Pleural/thoracentesi 10/17/17 14:57 Fluid Appearance Bloody (CLEAR) 10/17/17 14:57 Fluid WBC 239.0 /mm3 (0.0-300.0) 10/17/17 14:57 Fluid RBC 9060.0 /mm3 (0.0-0.0) H 10/17/17 14:57 Fluid Tot Cell Count 100 (0-0) H 10/17/17 14:57 Fluid Neutrophils 26.0 % (0-0) H 10/17/17 14:57 Fluid Lymphocytes 50.0 % (0-0) H 10/17/17 14:57 Fld Monocyte/Macrophag 24 % (0-0) H 10/17/17 14:57 Fluid Albumin 1.4 g/dL 10/17/17 14:57 Fluid LDH 186 IU (NONE ESTABLISHED) 10/17/17 14:57 Fluid Comment Turbid 10/17/17 14:57 Vancomycin Trough 22.7 ug/mL (5.0-10.0) H 10/23/17 04:45 Digoxin 1.6 ng/mL (0.8-2.0) 10/15/17 18:10 TB Test (QFT) Nil 0.03 IU/mL 10/22/17 11:16 TB Test Mitogen - Nil 0.27 IU/mL 10/22/17 11:16 TB Test TB - Nil 0.02 IU/mL 10/22/17 11:16 TB Test (QFT) Indeterminate (Negative) H 10/22/17 11:16 - Hospital Course Hospital Course: 86 y/o F with PMH CHF, pulmonary HTN, Chronic AFib & DMII presented to ED with complaints of shortness of breath was found to have CHF exacerbation with B/L pleura effusion. Patient's troponins were minimally elevated at that time. Patient was admitted to telemetry, and on 10/17, transferred to ICU because of somnolence. ABG was performed, and showed severe hypercapnia. Patient was placed on Bipap, then intubated for acute hypoercapneic respiratory failure . She was self-extubated on 10/19 with improved mentation. Right sided chest tube was placed by IR for pleural effusion and was removed . CXR showed minimal improvement of pleural effusion Per interventional cardiology, conservative treatment recommended at this time, not a candidate for extensive procedures. Dr. Cunningham consulted for a second opinion. patient has guarded prognosis Will discharge to [facility] for PT 1. Acute Hypercapneic Respiratory Failure most likely secondary to B/L pleural effusion, Pneumonia , CHF exacerbation was intubated and self extubated 10/19 At present saturating 98 % on 3 l O2 via NC, not using BIPAP , refusing Chest tube removed and repeat CXR today showed still bilateral pleural effusion more on the right Will continue Diureses and O2 via NC Started Diamox and PCO2 improving to 31 from 42 Guarded prognosis Started ambulation and continue PT in [facility] Pulmonary following 2. Acute CHF exacerbation, combined systolic & dyastolic dysfunction Echo showed pulmonary HTN , , aortic regurgitation , MS , mitral regurgitation . normal EF Cardiology consult appreciated Will continue digoxin and Lasix Consulted Dr. Cunningham for possible valve repair.Patient will be referred to [facility] for a second opinion . Son to follow up with Dr. Cunningham as outpatient continue Diamox for metabolic alkalosis continue PT 3. Acute CO2 Narcosis -PCO2 still elevated 72 Refuses Bipap continue O2 via NC 4. Hydropneumothorax pneumothorax development after chest tube placement now resolved chest tube removed 10/24 but CXR shows no improvement in pleural effusion continue diureses and low salt diet Repeat CXR shows bilateral pleural effusion more on the right 5. Paroxysmal A. Fib Warfarin on hold Patient is currently rate controlled continue digoxin 6.Bilateral Pleural Effusion likely secondary to CHF Chest tube was placed and removed . Repeat CXR shows still bilateral pleural effusion more on the right Fluid analysis was transudate continue diureses 7.HTN (controlled) 8.DM Type II Accucheck with coverage 9. Compressive Atelectasis given empiric IV Zosyn and Vancomycin 1 blood cx and pleural fluid cx positive for staph coag negativre Vanco and zosyn discontinued 10. Acute Elevated Troponin Unlikely secondary to ischemia continue Statin therapy ASA was on hold due to hematuria and now resumed 11. Prothrombin time increased due to coumadin warfarin on hold 12. Anemia of chronic disease Hgb stable 13. Hematuria--cleared H&H stable Lama removed resumed ASA 14. DVT prophylaxis resumed lovenox since hematuria resolved Will d/c to [facility] today Discharge Exam - Head Exam Head Exam: ATRAUMATIC, NORMOCEPHALIC Additional comments: cachetic , elderly, chronically ill, pale - Eye Exam Eye Exam: EOMI, Normal appearance, PERRL Pupil Exam: NORMAL ACCOMODATION - ENT Exam ENT Exam: Normal Exam - Neck Exam Neck exam: Full Rom, Normal Inspection - Respiratory Exam Respiratory Exam: Decreased Breath Sounds (bibasilar ), Clear to PA & Lateral, Rales - Cardiovascular Exam Cardiovascular Exam: Irregular Rhythm, Systolic Murmur. absent: JVD - GI/Abdominal Exam GI & Abdominal Exam: Normal Bowel Sounds, Soft. absent: Distended, Guarding, Rebound, Tenderness - Rectal Exam Rectal Exam: Deferred - Extremities Exam Extremities exam: normal capillary refill, normal inspection, pedal pulses present - Back Exam Back exam: NORMAL INSPECTION - Neurological Exam Neurological exam: Alert, CN II-XII Intact, Oriented x3 - Psychiatric Exam Psychiatric exam: Normal Affect - Skin Skin Exam: Dry, Pallor, Warm Discharge Plan - Discharge Medications Prescriptions: acetaZOLAMIDE [Diamox Sequels] 500 mg PO DAILY #30 cer - Follow Up Plan Condition: GUARDED Disposition: TRANSF TO SNF Patient education suggested?: Yes Referrals: Taj Zamora MD [Staff Provider] - Tu Richardson MD [Staff Provider] - Tom Cunningham MD [Staff Provider] -
[2017-10-30 16:05] VITALS: BP 150/55; PULSE 71; RESP 16; TEMP 98.1; O2SAT 97
== END 2017-10-30 16:50 | DRG 208 ==
LOC: H.ER 13:52 → H.ERHOLD 16:42 → H.TEL 20:44 → H.ICU/CCU 10-17 07:11 → H.TEL 10-27 00:23
PROC: 0W993ZZ Drainage of Right Pleural Cavity, Percutaneous Approach (ICD-10-PCS; principal; 2017-10-17)
PROC: 0BH17EZ Insertion of Endotracheal Airway into Trachea, Via Natural or Artificial Opening (ICD-10-PCS; 2017-10-17)
PROC: 5A1935Z Respiratory Ventilation, Less than 24 Consecutive Hours (ICD-10-PCS; 2017-10-17)
PROC: 0W9930Z Drainage of Right Pleural Cavity with Drainage Device, Percutaneous Approach (ICD-10-PCS; 2017-10-17)
PROC: 5A09557 Assistance with Respiratory Ventilation, Greater than 96 Consecutive Hours, Continuous Positive Airway Pressure (ICD-10-PCS; 2017-10-18)
DX: J96.02 Acute respiratory failure with hypercapnia (principal); G92 Toxic encephalopathy; J18.9 Pneumonia, unspecified organism; I50.43 Acute on chronic combined systolic (congestive) and diastolic (congestive) heart failure; Z68.1 Body mass index [BMI] 19.9 or less, adult; J91.8 Pleural effusion in other conditions classified elsewhere; J95.811 Postprocedural pneumothorax; J98.11 Atelectasis; E87.3 Alkalosis; I11.0 Hypertensive heart disease with heart failure; I08.0 Rheumatic disorders of both mitral and aortic valves; I27.20 Pulmonary hypertension, unspecified; I48.0 Paroxysmal atrial fibrillation; I48.2 Chronic atrial fibrillation; Z66 Do not resuscitate; Z79.01 Long term (current) use of anticoagulants; R63.4 Abnormal weight loss; Z87.891 Personal history of nicotine dependence; E11.9 Type 2 diabetes mellitus without complications; T42.4X5A Adverse effect of benzodiazepines, initial encounter; Y83.8 Other surgical procedures as the cause of abnormal reaction of the patient, or of later complication, without mention of misadventure at the time of the procedure; D63.8 Anemia in other chronic diseases classified elsewhere; R31.9 Hematuria, unspecified; R79.1 Abnormal coagulation profile; T50.1X5A Adverse effect of loop [high-ceiling] diuretics, initial encounter